=== PATIENT | female | born 1940 | race Caucasian/White ===

== ENCOUNTER 2016-08-12 13:20 | Observation (INO) ==
--- NOTE | 2016-08-12 13:22 | Emergency Department Note ---
Disposition Clinical Impression: Hypoglycemia, Weight loss Disposition: Admitted As Inpatient Referrals: NO,PCP [Primary Care Provider] - Forms: ED Satisfaction Letter General Adult HPI - General Chief complaint: ED Weakness Stated complaint: Low Blood Sugar Time Seen by Provider: 08/12/16 13:22 Source: patient, EMS Mode of arrival: EMS Limitations: altered mental status Nursing Notes Reviewed: Yes Vital Signs Reviewed: Yes - History of Present Illness HPI Narrative: Patient is a 75-year-old female who is a [facility] patient is here for hypoglycemia. They checked her earlier this morning it was in the 80s they gave her long-acting insulin 10 units subcutaneous they held her metformin they do not E because they stated she seemed a little disoriented. Patient's family states she has lost about 80 pounds in the last year and was concerned if she even needed medications for diabetes. History she has had multiple episodes of hypoglycemia Improves with: other (Glucose) Worsens with: nothing Associated symptoms: Reports: loss of appetite Treatments Prior to Arrival: other (Oral glucose) - Related Data Previous Rx's Medication Instructions Recorded Ondansetron ODT [Zofran ODT] 4 mg SL Q8HR PRN #15 tab.rapdis 06/30/16 OxyCODONE/APAP 5/325 [Percocet 1 each PO Q6HR PRN #15 tablet 06/30/16 5/325] Allergies Allergy/AdvReac Type Severity Reaction Status Date / Time Penicillins Allergy See Verified 10/29/15 15:27 Comments Sulfa (Sulfonamide Allergy See Verified 10/29/15 15:27 Antibiotics) Comments tetanus toxoid, adsorbed Allergy See Verified 08/12/16 13:23 Comments All systems ED: reviewed and negative except as stated. Constitutional: Reports: weakness. Denies: fever, chills Gastrointestinal: Denies: nausea, vomiting Past Medical History - Past Medical History Source: patient, old records reviewed, obtained from family, nursing notes reviewed Medical history: Reports: arthritis, diabetes, hypertension Surgical history: Reports: other Psychiatric history: Reports: no psych history - Social History Smoking Status: Former smoker Smokeless Tobacco Status: No Alcohol use: Reports: none Drug use: Reports: none Physical Exam - General Limitations: no limitations - Head Head exam: atraumatic, normocephalic, normal inspection - Eye Eye exam: Present: normal appearance, PERRL, EOMI - ENT ENT exam: normal exam, normal oropharynx, mucous membranes moist - Neck Neck exam: Present: normal inspection, full ROM, trachea midline - Chest Chest inspection: Present: normal inspection, symmetric chest wall rise - Respiratory Respiratory exam: Present: normal lung sounds bilaterally - Cardiovascular Cardiovascular exam: Present: regular rate, normal rhythm, normal heart sounds - Abdominal Exam Abdominal exam: Present: soft, Non-Tender. Absent: tenderness, distention, guarding, rebound, rigidity - Expanded Lower Extremity Exam Neurovascular/Tendon exam: Absent: motor deficit, sensory deficit, tendon deficit - Back Exam Back exam: Present: normal inspection, full ROM. Absent: tenderness - Neurological Exam Neurological exam: Present: alert, oriented X3 - Psychiatric Psychiatric exam: Present: normal affect, normal mood - Skin Skin exam: Present: warm, dry, intact, normal color Course Vital Signs Temperature 97.3 F L 08/12/16 13:23 Pulse Rate 61 08/12/16 13:23 Respiratory Rate 18 08/12/16 13:23 Blood Pressure 111/61 08/12/16 13:23 O2 Sat by Pulse Oximetry 94 08/12/16 13:23 Temperature 97.3 F L 08/12/16 13:23 Pulse Rate 60 08/12/16 14:47 Respiratory Rate 16 08/12/16 14:47 Blood Pressure 119/96 08/12/16 14:47 O2 Sat by Pulse Oximetry 96 08/12/16 14:47 Oxygen Delivery Oxygen Delivery Room Air Medical Decision Making - Medical Records Medical records reviewed: Yes I reviewed the patient's medical records. - Lab Data Lab results reviewed: Yes I reviewed the patient's lab results. Result diagrams: 08/12/16 13:46 08/12/16 13:46 Lab Results 08/12/16 08/12/16 08/12/16 Range/Units 13:25 13:46 13:46 WBC 13.1 H (4.3-11.1) K/mcL RBC 3.82 (3.82-4.97) M/mcL Hgb 9.3 L (11.5-15.4) g/dL Hct 29.8 L (35.3-44.9) % MCV 78.0 L (83.0-100.0) fL MCH 24.3 L (28.0-33.3) pg MCHC 31.2 L (31.6-35.5) g/dL RDW 19.2 H (11.5-14.5) % Plt Count 321 (140-400) K/mcL MPV 8.6 L (9.4-12.4) fL Immature Gran % 0.8 (0-4) % Seg Neutrophils % 82.0 % Lymphocytes % 11.6 % Monocytes % 4.2 % Eosinophils % 1.1 % Basophils % 0.3 % Neutrophils # 10.7 H (1.6-8.9) K/mcL Lymphocytes # 1.5 (0.6-4.6) K/mcL Monocytes # 0.6 (0.0-1.3) K/mcL Eosinophils # 0.2 (0.0-0.6) K/mcL Basophils # 0.0 (0.0-0.2) K/mcL Sodium 139 (136-145) mEq/L Potassium 3.8 (3.5-4.5) mEq/L Chloride 107 (98-109) mEq/L Carbon Dioxide 26 (19-29) mEq/L BUN 19 (7-20) mg/dL Creatinine 1.20 H (0.57-1.11) mg/dL Est GFR ( Amer) 53 L (> 60) Est GFR (Non-Af Amer) 44 L (> 60) BUN/Creatinine Ratio 16 (6-26) Glucose 64 L (70-99) mg/dL POC Glucose 84 (58-89) Est Mean Plasma Glucose mg/dl Hemoglobin A1c ( - 5.6) % Calculated Osmolality 288 (280-300) Calcium 7.7 L (8.6-10.8) mg/dL 08/12/16 08/12/16 08/12/16 Range/Units 13:46 14:22 14:23 WBC (4.3-11.1) K/mcL RBC (3.82-4.97) M/mcL Hgb (11.5-15.4) g/dL Hct (35.3-44.9) % MCV (83.0-100.0) fL MCH (28.0-33.3) pg MCHC (31.6-35.5) g/dL RDW (11.5-14.5) % Plt Count (140-400) K/mcL MPV (9.4-12.4) fL Immature Gran % (0-4) % Seg Neutrophils % % Lymphocytes % % Monocytes % % Eosinophils % % Basophils % % Neutrophils # (1.6-8.9) K/mcL Lymphocytes # (0.6-4.6) K/mcL Monocytes # (0.0-1.3) K/mcL Eosinophils # (0.0-0.6) K/mcL Basophils # (0.0-0.2) K/mcL Sodium (136-145) mEq/L Potassium (3.5-4.5) mEq/L Chloride (98-109) mEq/L Carbon Dioxide (19-29) mEq/L BUN (7-20) mg/dL Creatinine (0.57-1.11) mg/dL Est GFR ( Amer) (> 60) Est GFR (Non-Af Amer) (> 60) BUN/Creatinine Ratio (6-26) Glucose (70-99) mg/dL POC Glucose 46 L* 45 L* (58-89) Est Mean Plasma Glucose 94 mg/dl Hemoglobin A1c 4.9 ( - 5.6) % Calculated Osmolality (280-300) Calcium (8.6-10.8) mg/dL Critical Care Time Critical Care Time: Yes Total Critical Care Time: 40 Attestation: Critical care performed: Time is exclusive of separately billable procedures. Time includes: direct patient care, patient reassessment, coordination of patient care, interpretation of data (laboratory data, radiology data, and respiratory data), review of patient's medical records, medical consultation and documentation of patient care. Procedures included in critical care time: Procedures excluded from critical care time:
[2016-08-12 13:54] LABS: Basophils % 0.3 %; Eosinophils # 0.2 K/mcL (0.0-0.6); Eosinophils % 1.1 %; Hematocrit 29.8 % (35.3-44.9); Hemoglobin 9.3 g/dL (11.5-15.4); Immature Granulocytes % 0.8 % (0-4); Lymphocytes # 1.5 K/mcL (0.6-4.6); Lymphocytes % 11.6 %; Mean Corpuscular HGB Conc 31.2 g/dL (31.6-35.5); Mean Corpuscular Hemoglobin 24.3 pg (28.0-33.3); Mean Platelet Volume 8.6 fL (9.4-12.4); Monocytes # 0.6 K/mcL (0.0-1.3); Monocytes % 4.2 %; Neutrophils # 10.7 K/mcL (1.6-8.9); Platelet Count 321 K/mcL (140-400); Red Blood Count 3.82 M/mcL (3.82-4.97); Red Cell Distribution Width 19.2 % (11.5-14.5)
[2016-08-12 14:05] LABS: Calcium 7.7 mg/dL (8.6-10.8); Hemoglobin A1C 4.9 %; Potassium 3.8 mEq/L (3.5-4.5)
[2016-08-12] MEDS ORDERED: *HR* Dextrose 50 % in Water (Syg) 50 ML SYRINGE IVP ONE (14:33)
[2016-08-12] MEDS: D10% in Water 500 ML IVC SCH ×2 (14:38→20:03)
--- NOTE | 2016-08-12 15:40 | Internal Med History&Physical ---
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 Reis is a 75 year old female [facility] due to hypoglycemia blood sugar about 46 patient patient with history of diabetes, hypertension, arthritis,, pacemaker nonhealing surgical wound patient this morning at [place] blood glucose was 80, she was given long-acting 10 units of Lantus and metformin was held patient later on became drowsy and then she was brought to the emergency room due to to hypoglycemic was given amp of D50 by EMS and then D50 again in emergency room lab draw shows glucose of 49 now she started on the D10 half-normal saline at 100 an hour when I saw patient patient still appears drowsy, but easily wakes up she refuses to eat patient says she is not hungry does not want to eat and had tray in emergency room which she has not touched . nurse now repeats repeat Accu-Chek which was 161. Patient will be admitted . family reported that patient has lost about 80 pounds and has multiple episodes of hypoglycemia in the jail hemoglobin A1c is 4.9 appearance patient is no longer diabetic and family also concerned the patient had very poor by mouth intake does not eat well and does not want to eat and continuously losing weight. Past Med Surg Social Fam HX - Past Medical History Medical history: arthritis, diabetes, hypertension Psychiatric history: no psych history - Past Surgical History Surgical History: pacemaker/AICD, other - Social History Smoking Status: Former smoker Smokeless Tobacco Status: No Alcohol use: none Drug use: none - Family History Father Adopted: No Family Member Ethnicity: Non- Living Status: Hx Family Cardiac Disorders: Yes Hx Family Respiratory Disorders: No Hx Family Cancer: No Hx Family GI Disorders: No Hx Family Endocrine Disorder: Yes Hx Family Neuromuscular Disorders: No Hx Family Neurologic Disorders: No Hx Family HEENT Disorders: No Hx Family Autoimmune Disorders: No Internal Medicine - H&P: Meds Ondansetron ODT [Zofran ODT] 4 mg SL Q8HR PRN #15 tab.rapdis 06/30/16 [Rx] OxyCODONE/APAP 5/325 [Percocet 5/325] 1 each PO Q6HR PRN #15 tablet 06/30/16 [Rx ] Allergies Penicillins Allergy (Verified 10/29/15 15:27) See Comments Sulfa (Sulfonamide Antibiotics) Allergy (Verified 10/29/15 15:27) See Comments tetanus toxoid, adsorbed Allergy (Verified 08/12/16 13:23) See Comments All Systems PM: A 10-system review of systems was performed and is negative for pertinent findings except as documented above in the HPI. - Constitutional Constitutional: fatigue, lethargy - EENT Eyes: no change in vision, no discharge, no pain, no photophobia Ears: no ear discharge, no ear pain, no tinnitus Nose, mouth and throat: no dysphagia, no nasal discharge, no neck pain, no sore throat - Cardiovascular Cardiovascular ROS IM: no chest pain, no diaphoresis, no dyspnea, no lightheadedness, no palpitations, no syncope - Respiratory Respiratory: no cough, no dyspnea, no wheezing, no excessive phlegm production - Gastrointestinal Gastrointestinal: no abdominal pain, no diarrhea, no hematemesis, no hematochezia, no melena, no nausea, no vomiting - Genitourinary Genitourinary: no change in urinary stream, no dysuria, no flank pain, no hematuria - Musculoskeletal Musculoskeletal ROS IM: no numbness, no tingling - Integumentary Integumentary IM: no rash, no unusual bruising - Neurological Neurological ROS: no confusion, no convulsions, no focal weakness, no numbness, no tingling, no tremor(s) - Hematologic/Lymphatic Hematologic/Lymphatic: no easy bruising - Constitutional Vitals: Temp Pulse Resp BP Pulse Ox 97.3 F L 60 20 105/46 96 04/29/17 13:23 08/12/16 14:47 08/12/16 15:27 08/12/16 15:27 08/12/16 14:47 - Eye Eye exam: Present: PERRL, conjuntiva pink, sclera anicteric Pupils: Present: PERRL - Neck Neck exam general surgery: Present: supple, trachea midline. Absent: lymphadenopathy - Respiratory Respiratory exam: Present: CTAB. Absent: accessory muscle use, rales, rhonchi, wheezes - Cardiovascular Cardiovascular exam: Present: RRR, +S1, +S2. Absent: diastolic murmur, gallop, rubs, systolic murmur - GI/Abdominal GI/Abdominal exam: Present: normal bowel sounds, soft, no peritoneal signs. Absent: distended, tenderness - Extremities Exam Extremities exam: Present: warm, radial pulses palpable and symetrical. Absent : calf tenderness, cyanotic, pedal edema Internal Med - H&P Results - Labs CBC & Chem 7: 08/12/16 13:46 08/12/16 13:46 Labs: Short CBC 08/12/16 Range/Units 13:46 WBC 13.1 H (4.3-11.1) K/mcL Hgb 9.3 L (11.5-15.4) g/dL Hct 29.8 L (35.3-44.9) % Plt Count 321 (140-400) K/mcL Neutrophils # 10.7 H (1.6-8.9) K/mcL BMP 08/12/16 13:46 Sodium 139 Potassium 3.8 Chloride 107 Carbon Dioxide 26 BUN 19 Creatinine 1.20 H Glucose 64 L Calcium 7.7 L
[2016-08-12] MEDS ORDERED: MOM Conc 10 ML UD.LIQ PO PRN (15:47)
[2016-08-12] MEDS ORDERED: Ondansetron 4 MG/2 ML VIAL IVP PRN (15:47)
[2016-08-12] MEDS ORDERED: Naloxone 0.4 MG/ML INJ IVP PRN (15:47)
[2016-08-12] MEDS ORDERED: *HR* OxyCODONE/APAP 5/325 TABLET PO PRN (15:51)
[2016-08-12] MEDS ORDERED: *HR* Dextrose 50 % in Water (Syg) 50 ML SYRINGE IVP PRN (15:52)
[2016-08-12] MEDS ORDERED: Dextrose Gel 15 GM PO PRN ×2 (15:52)
[2016-08-12] MEDS ORDERED: D5% in Water 1,000 ML IVC PRN (15:52)
[2016-08-12] MEDS ORDERED: 0.9 % Sodium Chloride 500 ML IVC ONE (22:26)
[2016-08-12] MEDS: BuPROPion SR (12 HR) 150 MG TABLET PO SCH (22:53)
[2016-08-13] MEDS: Fluticasone Propionate Nasal 50 MCG/SPRAY BOTTLE NS SCH ×2 (01:21→08:14)
[2016-08-13] MEDS: D10% in Water 500 ML IVC SCH ×3 (02:24→14:39)
[2016-08-13 03:38] LABS: Alanine Aminotransferase 8 Units/L (0-55); Albumin/Globulin Ratio 0.5 (1.1-2.2); Alkaline Phosphatase 140 Units/L (38-126); Aspartate Amino Transferase 14 Units/L (5-34); BUN/Creatinine Ratio 15 (6-26); Bilirubin,Total 0.4 mg/dL (0.2-1.2); Blood Urea Nitrogen 15 mg/dL (7-20); Calcium 7.5 mg/dL (8.6-10.8); Carbon Dioxide 21 mEq/L (19-29); Chloride 107 mEq/L (98-109); Chol/HDL Ratio 1.8 (0-4.9); Globulin 3.3 g/dL (2.4-3.5); Glucose 105 mg/dL (70-99); HDL Cholesterol 42 mg/dL (40-59); LDL Cholesterol,Calculated 19 mg/dL (0-99); Magnesium 1.2 mg/dL (1.6-2.6); Osmolality,Calculated 283 (280-300); Potassium 3.5 mEq/L (3.5-4.5); Sodium 136 mEq/L (136-145); Triglycerides 78 mg/dL (< 150); eGFR For African Americans > 60 (> 60); eGFR For Non-African Americans 53 (> 60)
[2016-08-13 03:40] LABS: Albumin 1.7 g/dL (3.5-5.0); Cholesterol 77 mg/dL (< 200)
[2016-08-13] MEDS: Levothyroxine 25 MCG TABLET PO SCH (06:44)
[2016-08-13] MEDS: BuPROPion SR (12 HR) 150 MG TABLET PO SCH ×2 (08:13→19:55)
[2016-08-13] MEDS: Aspirin Enteric Coated 81 MG Tablet PO SCH (08:13)
[2016-08-13] MEDS: Cholecalciferol (D-3) 1,000 UNIT TABLET PO SCH (08:14)
[2016-08-13] MEDS: Gabapentin 300 MG CAPSULE PO SCH ×3 (08:14→19:54)
[2016-08-13] MEDS: Loratadine 10 MG TABLET PO SCH (08:14)
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
[2016-08-13] MEDS ORDERED: Magnesium Sulfate 2 GM in D5% in Water 100 ML IVPB ONE (18:20)
[2016-08-13] MEDS ORDERED: traZODone 50 MG TABLET PO SCH (21:00)
[2016-08-14] MEDS: Levothyroxine 25 MCG TABLET PO SCH (06:39)
[2016-08-14] MEDS: BuPROPion SR (12 HR) 150 MG TABLET PO SCH (08:17)
[2016-08-14] MEDS: Gabapentin 300 MG CAPSULE PO SCH ×2 (08:17→15:17)
[2016-08-14] MEDS: Cholecalciferol (D-3) 1,000 UNIT TABLET PO SCH (08:18)
[2016-08-14] MEDS: Loratadine 10 MG TABLET PO SCH (08:18)
[2016-08-14] MEDS: Aspirin Enteric Coated 81 MG Tablet PO SCH (08:18)
[2016-08-14] MEDS: Fluticasone Propionate Nasal 50 MCG/SPRAY BOTTLE NS SCH (08:21)
[2016-08-14 09:24] LABS: Basophils % 0.3 %; Eosinophils # 0.2 K/mcL (0.0-0.6); Eosinophils % 2.2 %; Hematocrit 31.8 % (35.3-44.9); Hemoglobin 10.1 g/dL (11.5-15.4); Immature Granulocytes % 0.3 % (0-4); Lymphocytes # 1.6 K/mcL (0.6-4.6); Lymphocytes % 17.2 %; Mean Corpuscular HGB Conc 31.8 g/dL (31.6-35.5); Mean Corpuscular Hemoglobin 24.5 pg (28.0-33.3); Mean Platelet Volume 9.5 fL (9.4-12.4); Monocytes # 0.5 K/mcL (0.0-1.3); Monocytes % 5.8 %; Neutrophils # 6.8 K/mcL (1.6-8.9); Platelet Count 321 K/mcL (140-400); Red Blood Count 4.13 M/mcL (3.82-4.97); Red Cell Distribution Width 19.3 % (11.5-14.5); Segmented Neutrophils % 74.2 %
[2016-08-14 09:39] LABS: BUN/Creatinine Ratio 12 (6-26); Blood Urea Nitrogen 10 mg/dL (7-20); Calcium 7.7 mg/dL (8.6-10.8); Carbon Dioxide 23 mEq/L (19-29); Chloride 109 mEq/L (98-109); Glucose 115 mg/dL (70-99); Magnesium 1.2 mg/dL (1.6-2.6); Osmolality,Calculated 286 (280-300); Potassium 3.9 mEq/L (3.5-4.5); Sodium 138 mEq/L (136-145); eGFR For African Americans > 60 (> 60); eGFR For Non-African Americans > 60 (> 60)
[2016-08-14] MEDS ORDERED: Magnesium Sulfate 2 GM in D5% in Water 100 ML IVPB ONE (12:36)
[2016-08-14 15:10] VITALS: BP 155/73
--- NOTE | 2016-08-14 15:35 | Discharge Summary ---
Date of Encounter: 08/14/16 Time of Encounter: 09:10 - Discharge Diagnosis (1) Nonhealing surgical wound Priority: Secondary Status: Chronic Comments: Patient had abdominal surgery at [facility] earlier this year, per her account. She said that she had a large abdominal wound that involved wound care and wound VAC. Currently she has a small draining area inside of her umbilicus. Yesterday was draining serosanguineous/brown drainage. Today it appears to be draining nothing. Primary nurse also agrees. She denies pain, there is no foul odor. Onset of this about 2 weeks ago. I did consult wound care, however they did not make it to the department today. She also has some partially healed abrasions to the dorsal right second and third toes she says for some reason she was crawling on the floor to get help and dragged her toes across the carpet. I believe this happened at her home. She says that she is not limited home for a few months, so these are slow healing wounds. I would appreciate wound care seeing these at the facility to facilitate healing. They appear to cause her a lot of pain in her tender to palpation. They are covered with gauze only and do not look like they have a drainage. Qualifiers: Encounter type: initial encounter Qualified Code(s): T81.89XA - Other complications of procedures, not elsewhere classified, initial encounter (2) Hypoglycemia Priority: Primary Status: Acute Comments: Patient was admitted for hypoglycemia from the emergency room. She is a resident at a local [facility]. She has been residing there this year since it was discovered that she was unable to be at home due to falls, declining condition, and abdominal surgery. Blood sugar the day of arrival was in the 80s, however they give her long-acting insulin and hold her metformin and she did not eat. She was sent to the emergency department where blood sugars in the 40s. She was treated appropriately with amps of D50. She was on a D5 drip here. We did end up stopping it. Her A1c is 4.9. Her Accu-Cheks have been around 120. She will no longer need any diabetic medications. She does report approximately 80 pound weight loss recently this could be contributory. She will need to be monitored closely at the [facility] and still primarily adherent to a diabetic diet. (3) Weight loss Priority: Secondary Status: Chronic Comments: Patient reports proximal 80 pound weight loss since moving into the penitentiary. Patient states it is partially due to deconditioning, lack of mobility, depression from missing her family and not being at home. Nutrition was consult for supplementation. Patient will also have continued physical therapy at the penitentiary. (4) Arthritis Priority: Secondary Status: Chronic (5) Artificial pacemaker Priority: Secondary Status: Chronic (6) Physical deconditioning Priority: Secondary Status: Acute Comments: Patient has been a resident of penitentiary. She was sent for rehabilitation, she will go back to continue physical therapy. Patient had lengthy abdominal surgery and was having increasing falls at home. Per therapy notes, patient was difficult to move today and required assistance. Continue therapy at penitentiary. - Discharge Medications Home Medications: Amlodipine [Norvasc] 10 mg PO DAILY 08/12/16 [History] Ascorbate Calcium [Vitamin C] 500 mg PO BID 08/12/16 [History] Aspirin [Lo-Dose Aspirin EC] 81 mg PO DAILY 08/12/16 [History] Atorvastatin [Lipitor] 40 mg PO HS 08/12/16 [History] BuPROPion SR (12 HR) [Wellbutrin SR] 150 mg PO BID 08/12/16 [History] Calcium Carbonate [Calcium] 600 mg PO BID 08/12/16 [History] Cholecalciferol (Vitamin D3) [Vitamin D3] 2,000 unit PO DAILY 08/12/16 [History] Cilostazol 50 mg PO BID 08/12/16 [History] CloNIDine HCl [Kapvay] 0.1 mg PO BID 08/12/16 [History] DiphenhydraMINE [Benadryl] 25 mg PO BID PRN 08/12/16 [History] Docusate [Colace] 100 mg PO BID 08/12/16 [History] Escitalopram [Lexapro] 10 mg PO HS 08/12/16 [History] Estrogens, Conjugated [Premarin Cream] 1 appl VG MOWEFR 08/12/16 [History] Fexofenadine HCl [Allergy Relief] 180 mg PO DAILY 08/12/16 [History] Gabapentin [Neurontin] 300 mg PO TID 08/12/16 [History] Levothyroxine [Synthroid] 25 mcg PO DAILY 08/12/16 [History] Magnesium Hydroxide [Milk of Magnesia] 30 ml PO DAILY PRN 08/12/16 [History] Melatonin/Pyridoxine HCl (B6) [Melatonin 3 mg Tablet] 3 mg PO HS 08/12/16 [ History] Metoprolol [Lopressor] 25 mg PO BID 08/12/16 [History] Oxybutynin Chloride [Ditropan Xl] 10 mg PO DAILY 08/12/16 [History] Oxycodone HCl/Acetaminophen [Percocet 5-325 mg Tablet] 1 - 2 tab PO Q4H PRN [History] Pentoxifylline [TRENtal] 400 mg PO BID 08/12/16 [History] Polyethylene Glycol 3350 [Gavilax] 17 gm PO DAILY 08/12/16 [History] Polyvinyl Alcohol/Povidone/Pf [Refresh Classic Eye Drops] 1 drop OP DAILY [History] Ranitidine HCl [Acid Gi Physician] 75 mg PO BID 08/12/16 [History] Sennosides [Senna] 8.6 mg PO BID 08/12/16 [History] TraZODone 50 mg PO HS 08/12/16 [History] Zinc Acetate [Galzin] 50 mg PO DAILY 08/12/16 [History] Allergies/Adverse Reactions: Allergies Penicillins Allergy (Unknown, Verified 08/12/16 17:01) See Comments Unknown reaction- Listed on ECF med list- Sulfa (Sulfonamide Antibiotics) Allergy (Unknown, Verified 08/12/16 17:01) See Comments Unknown reaction- Listed on ECF med list- tetanus toxoid, adsorbed Allergy (Unknown, Verified 08/12/16 17:01) See Comments Unknown reaction- Listed on ECF med list- Date of admission: 08/12/16 15:15 Primary care physician: PCP NO Consults: 08/12/16 15:50 Consult to Blankbook Forwarder [CONS] Routine Reason for SW Consult: [place] resident 08/12/16 15:53 consult to lining repairer [Consult to Nutrition] [CONS] Routine Comment: Consulting Provider: NUTRITION Reason for Dietary Consult: PO Supplementation 08/13/16 18:05 Consult to Wound Care [CONS] Routine Reason for Consult: Prior pt of wound care. Small draining wound in umbilicus. Pt states that this is part of original wound that she was treated for. Wounds to R dorsal 2nd and 3rd toes. Potential skin breakdown to citlali heels. Call Completed: No 08/14/16 08:43 Consult to Physical Therapy [CONS] Routine Comment: Evaluate, develop and implement POC OT [Consult to Occupational Therapy] [CONS] Routine Comment: Evaluate, develop and implement POC Discharging clinician: Omayra Painter Anticipated date of discharge: 08/14/16 - Patient Status Disposition: Transfer SNF Condition: Good Functional capacity at discharge: uses cane/walker Overall status at discharge: patient is back to baseline - Discharge Instructions Follow Up With: NO,PCP [Primary Care Provider] - Additional Instructions: Pt does not need insulin or Metformin at this time. Accuchecks ac and hs She will need careful, close monitoring of blood sugars for hyper or hypoglycemia. A1c is 4.9 and her accuchecks have been around 120mg/dl Please have her seen by the facility physician within the next 3 days for lab redraw for Chem7 with Magnesium. Pt did have some serosanguinous, non-purulent drainage from her umbilicus. She says she has had it for 2-3 weeks. She also has scabs to her dorsal toes citlali, R > L that are painful. I would appreciate an evalution by wound care, if it has not been done already. - Diet and Activity Activity: as per physical therapy Diet: diabetic diet, low fat, low cholesterol, low salt diet Hospital course: Ms. Reis is a 75 year old female who resides at a local pen[facility]. She is at the half-way facility for rehabilitation due to abdominal surgery in April with wound complications, and increasing falls at home. She was sent to the emergency department for hypoglycemia, her blood sugar was about 46. She has a history of diabetes, hypertension, arthritis, she has a pacemaker, and a nonhealing surgical wound to umbilicus. At the [facility] her blood sugar was around 80, she was given long-acting Lantus and metformin was held. Later on patient became drowsy she is brought to the emergency room. Blood sugar in the 40s. She was given an amp of D50 by EMS and then another one again in the emergency room. Second lab draw shows glucose of 49. She was started on a drip of D10 half-normal saline at 100 hour. She was admitted to the floor. The D10 was stopped yesterday. Her A1c is 4.9 and her Accu-Cheks have been around 120. I have stopped all of her insulin and diabetic medications. She will be sent back to the penitentiary with orders for close monitoring of blood sugars and a repeat chemistry within the next 3 days to monitor her electrolytes and magnesium. Magnesium was 1.7 today. She was given 2 g of mag sulfate prior to discharge. Potassium remains within normal limits. I counseled wound care look at her abdominal wound, however they did not make it to the unit prior to discharge. I will request that she is seen by wound care at the penitentiary for a small open area in her umbilicus that is draining serosanguineous fluid. It appears to stopped, however it still needs to be evaluated and monitored. She denies pain. The drainage is not foul- smelling or purulent. Her labs are within normal limits, as are her vital signs. Patient is alert and oriented and neurologically intact, she is very pleasant woman who is stable for discharge. - Time Spent with Patient Total time spent providing and/or coordinating discharge services: Less than 30 minutes - Constitutional Vitals: Temp Pulse Resp BP Pulse Ox 98.6 F 84 16 155/73 97 08/14/16 15:03 08/14/16 15:03 08/14/16 15:03 08/14/16 15:03 08/14/16 15:03 General appearance: Present: A&O X 3, morbidly obese, pleasant, no acute distress, answers questions appropriately - Head Head exam: Present: normal inspection - Eye Eye exam: Present: normal appearance, conjuntiva pink - ENT ENT exam: Present: mucous membranes moist, normal exam, normal external ear exam - Neck Neck exam general surgery: Present: normal inspection. Absent: lymphadenopathy , tenderness - Respiratory Respiratory exam: Present: CTAB. Absent: rales, rhonchi, wheezes - Cardiovascular Cardiovascular exam: Present: RRR, +S1, +S2. Absent: diastolic murmur, systolic murmur - GI/Abdominal GI/Abdominal exam: Present: normal bowel sounds. Absent: guarding, hepatomegaly , tenderness - Extremities Exam Extremities exam: Present: normal capillary refill, normal inspection, warm, radial pulses palpable and symetrical. Absent: pedal edema, tenderness - Neurological Exam Neurological exam: Present: alert, oriented X3, no focal deficits, strengths equal and symetr throughout. Absent: facial droop, speech deficit
--- NOTE | 2016-08-14 16:00 | Physician Discharge Referral ---
ExtendedCare Referral Info Transfer To: [facility] Provider in Charge after Transfer: PCP Institutional Level of Care: Skilled - Diagnosis (1) Nonhealing surgical wound Priority: Secondary Status: Chronic (2) Hypoglycemia Priority: Primary Status: Acute (3) Weight loss Priority: Secondary Status: Chronic (4) Arthritis Priority: Secondary Status: Chronic (5) Artificial pacemaker Priority: Secondary Status: Chronic (6) Physical deconditioning Priority: Secondary Status: Chronic Expected Duration of Placement: 90 days Prognosis: Good - Transfer Medications Home Medications: Amlodipine [Norvasc] 10 mg PO DAILY 08/12/16 [History] Ascorbate Calcium [Vitamin C] 500 mg PO BID 08/12/16 [History] Aspirin [Lo-Dose Aspirin EC] 81 mg PO DAILY 08/12/16 [History] Atorvastatin [Lipitor] 40 mg PO HS 08/12/16 [History] BuPROPion SR (12 HR) [Wellbutrin SR] 150 mg PO BID 08/12/16 [History] Calcium Carbonate [Calcium] 600 mg PO BID 08/12/16 [History] Cholecalciferol (Vitamin D3) [Vitamin D3] 2,000 unit PO DAILY 08/12/16 [History] Cilostazol 50 mg PO BID 08/12/16 [History] CloNIDine HCl [Kapvay] 0.1 mg PO BID 08/12/16 [History] DiphenhydraMINE [Benadryl] 25 mg PO BID PRN 08/12/16 [History] Docusate [Colace] 100 mg PO BID 08/12/16 [History] Escitalopram [Lexapro] 10 mg PO HS 08/12/16 [History] Estrogens, Conjugated [Premarin Cream] 1 appl VG MOWEFR 08/12/16 [History] Fexofenadine HCl [Allergy Relief] 180 mg PO DAILY 08/12/16 [History] Gabapentin [Neurontin] 300 mg PO TID 08/12/16 [History] Levothyroxine [Synthroid] 25 mcg PO DAILY 08/12/16 [History] Magnesium Hydroxide [Milk of Magnesia] 30 ml PO DAILY PRN 08/12/16 [History] Melatonin/Pyridoxine HCl (B6) [Melatonin 3 mg Tablet] 3 mg PO HS 08/12/16 [ History] Metoprolol [Lopressor] 25 mg PO BID 08/12/16 [History] Oxybutynin Chloride [Ditropan Xl] 10 mg PO DAILY 08/12/16 [History] Oxycodone HCl/Acetaminophen [Percocet 5-325 mg Tablet] 1 - 2 tab PO Q4H PRN [History] Pentoxifylline [TRENtal] 400 mg PO BID 08/12/16 [History] Polyethylene Glycol 3350 [Gavilax] 17 gm PO DAILY 08/12/16 [History] Polyvinyl Alcohol/Povidone/Pf [Refresh Classic Eye Drops] 1 drop OP DAILY [History] Ranitidine HCl [Acid Locomotive Inspector] 75 mg PO BID 08/12/16 [History] Sennosides [Senna] 8.6 mg PO BID 08/12/16 [History] TraZODone 50 mg PO HS 08/12/16 [History] Zinc Acetate [Galzin] 50 mg PO DAILY 08/12/16 [History] Allergies/Adverse Reactions: Allergies Penicillins Allergy (Unknown, Verified 08/12/16 17:01) See Comments Unknown reaction- Listed on ECF med list- Sulfa (Sulfonamide Antibiotics) Allergy (Unknown, Verified 08/12/16 17:01) See Comments Unknown reaction- Listed on ECF med list- tetanus toxoid, adsorbed Allergy (Unknown, Verified 08/12/16 17:01) See Comments Unknown reaction- Listed on ECF med list- - Respiratory Orders Smoking Cessation: Smoking cessation has been advised. For more information, call the [place] Tobacco Quit Line at 6-366-VKJC-NOW. - Lab Orders Lab Orders: Other (include drug levels w/frequency) - Ancillary Orders May use pressure relief devices daily prn - Advance Directives Code Status: Full Code - Mobility Orders Other - Rehabiliation Orders Rehab Potential: Fair Rehab Orders: ROM Exercises, Evaluation for Physical Therapy, Evaluation for Occupational Therapy - Diet Orders No Added Salt (SAMIRA), No Concentrated Sweets (Pt will need close monitoring of blood glucose. Accuchecks ac/hs. Wound care evaluation for umbilicus and citlali dorsal toes, if not done already Pt will need a repeat Chem7 and magnesium to reevaluate electrolytes) CERTIFICATION: I certify that the transfer of the above named patient to an Extended Care Facility is necessary for the continuing treatment of the diagnosis listed. The above information is true and accurate reflection of patient's current condition. Confidential - Redisclosure prohibited without a patient's written consent.
[2016-08-14] MEDS ORDERED: Magnesium Oxide 400 MG TABLET PO SCH (16:30)
[2016-08-15] MEDS ORDERED: Multivit/Ca/Min/Fe/FA 1 TAB TABLET PO SCH (09:00)
== END 2016-08-14 17:15 ==
LOC: 3BNU 13:20 → EMEROO 13:20 → 3BNU 15:58
PROVIDERS: ADMIT Internal Medicine; ATTEND Registered Nurse

== ENCOUNTER 2016-09-18 02:13 | Inpatient (IN) ==
--- NOTE | 2016-09-18 02:22 | Emergency Department Note ---
START Narrative - START START: I examined this patient and my medical decision-making was reviewed with the MEDICAL TYPIST/PA/Advanced Practice Nurse/Resident Physician. I agree with the documented findings, disposition and treatment plan as described except to the extent set forth below. Patient emergency department with altered mental status. half-way center and: Reports for concern for stroke. They were concerned because she was leaning to the right. Patient denies any numbness or tingling or pain. On examination she is awake and alert. Laying on her right side. Patient yells when you try to move her. She does follow simple commands. She raises both arms. There is no drift. She able to move both legs as well. Sensation is intact and symmetric. She answers questions appropriately such as her name and birthday. Her NIH scale here is 0. Plan. Do not see any signs of an acute stroke. Patient states she is laying to the right because she likes to lay that way. We will perform altered mental status workup and reevaluate. Patient with elevated troponin. No old for comparison. Reevaluated and again denies having chest abdominal or back pain. Patient with UTI. Starting antibiotics. Potassium rider for hypokalemia. Will admit.
[2016-09-18 03:19] LABS: Basophils % 0.1 %; Eosinophils % 0.1 %; Hematocrit 37.2 % (35.3-44.9); Hemoglobin 11.6 g/dL (11.5-15.4); Immature Granulocytes % 0.4 % (0-4); Lymphocytes # 1.6 K/mcL (0.6-4.6); Lymphocytes % 13.3 %; Mean Corpuscular HGB Conc 31.2 g/dL (31.6-35.5); Mean Corpuscular Hemoglobin 24.2 pg (28.0-33.3); Mean Corpuscular Volume 77.7 fL (83.0-100.0); Monocytes # 0.7 K/mcL (0.0-1.3); Monocytes % 5.5 %; Neutrophils # 9.6 K/mcL (1.6-8.9); Platelet Count 382 K/mcL (140-400); Red Blood Count 4.79 M/mcL (3.82-4.97); Red Cell Distribution Width 20.6 % (11.5-14.5); Segmented Neutrophils % 80.6 %
[2016-09-18 03:26] LABS: INR 1.3; Prothrombin Time 14.4 Seconds (9.4-12.1)
--- NOTE | 2016-09-18 03:26 | Emergency Department Note ---
Disposition Clinical Impression: Elevated troponin UTI (urinary tract infection) Qualifiers: Urinary tract infection type: site unspecified Hematuria presence: with hematuria Qualified Code(s): N39.0 - Urinary tract infection, site not specified Disposition: Admitted As Inpatient Condition: Fair Time of Disposition: 05:41 General Adult HPI - General Chief complaint: ED Neuro Symptoms/Deficit Stated complaint: possible stroke per [facility] Time Seen by Provider: 09/18/16 02:18 Nursing Notes Reviewed: Yes Vital Signs Reviewed: Yes - History of Present Illness HPI Narrative: Mrs. Reis, a 78 yo female, arrived from nursing facility via EMS with facility staff concern regarding altered mentation and concern for neurologic deficit. Patient denies pain at this time. She asks to be left alone. When asked where she hurts, patient motions to left leg and toes. PMH: arthritis, hx hypoglycemia, hx protein calorie maltrution, CAD with pacemaker ROS: Pos: Left leg and toe pain Neg: fever, chills, dyspnea, chest pain, abdominal pain, back pain, pain with urination - Related Data Home Medications Medication Instructions Recorded Confirmed Ascorbate Calcium [Vitamin C] 500 mg PO BID 08/12/16 08/12/16 Aspirin [Lo-Dose Aspirin EC] 81 mg PO DAILY 08/12/16 08/12/16 Atorvastatin [Lipitor] 40 mg PO HS 08/12/16 08/12/16 BuPROPion SR (12 HR) [Wellbutrin 150 mg PO BID 08/12/16 08/12/16 SR] Calcium Carbonate [Calcium] 600 mg PO BID 08/12/16 08/12/16 Cholecalciferol (Vitamin D3) 2,000 unit PO DAILY 08/12/16 08/12/16 [Vitamin D3] Cilostazol 50 mg PO BID 08/12/16 08/12/16 CloNIDine HCl [Kapvay] 0.1 mg PO BID 08/12/16 08/12/16 DiphenhydraMINE [Benadryl] 25 mg PO BID PRN 08/12/16 08/12/16 Docusate [Colace] 100 mg PO BID 08/12/16 08/12/16 Escitalopram [Lexapro] 10 mg PO HS 08/12/16 08/12/16 Estrogens, Conjugated [Premarin 1 appl VG MOWEFR 08/12/16 08/12/16 Cream] Fexofenadine HCl [Allergy Relief] 180 mg PO DAILY 08/12/16 08/12/16 Gabapentin [Neurontin] 300 mg PO TID 08/12/16 08/12/16 Levothyroxine [Synthroid] 25 mcg PO DAILY 08/12/16 08/12/16 Magnesium Hydroxide [Milk of 30 ml PO DAILY PRN 08/12/16 08/12/16 Magnesia] Melatonin/Pyridoxine HCl (B6) 3 mg PO HS 08/12/16 08/12/16 [Melatonin 3 mg Tablet] Metoprolol [Lopressor] 25 mg PO BID 08/12/16 08/12/16 Oxybutynin Chloride [Ditropan Xl] 10 mg PO DAILY 08/12/16 08/12/16 Oxycodone HCl/Acetaminophen 1 - 2 tab PO Q4H PRN 08/12/16 08/12/16 [Percocet 5-325 mg Tablet] Pentoxifylline [TRENtal] 400 mg PO BID 08/12/16 08/12/16 Polyethylene Glycol 3350 [Gavilax] 17 gm PO DAILY 08/12/16 08/12/16 Polyvinyl Alcohol/Povidone/Pf 1 drop OP DAILY 08/12/16 08/12/16 [Refresh Classic Eye Drops] Ranitidine HCl [Acid Public Health Assistant] 75 mg PO BID 08/12/16 08/12/16 Sennosides [Senna] 8.6 mg PO BID 08/12/16 08/12/16 Zinc Acetate [Galzin] 50 mg PO DAILY 08/12/16 08/12/16 amLODIPine [Norvasc] 10 mg PO DAILY 08/12/16 08/12/16 traZODone [TraZODone] 50 mg PO HS 08/12/16 08/12/16 Previous Rx's Medication Instructions Recorded Magnesium Oxide [Mag-Ox] 400 mg PO BID #6 tablet 08/14/16 Multivitamin,Therapeutic 1 each PO DAILY #30 tablet 08/14/16 [Thera-Tabs] Allergies Allergy/AdvReac Type Severity Reaction Status Date / Time Penicillins Allergy Unknown See Verified 09/18/16 02:36 Comments Sulfa (Sulfonamide Allergy Unknown See Verified 09/18/16 02:36 Antibiotics) Comments tetanus toxoid, adsorbed Allergy Unknown See Verified 09/18/16 02:36 Comments All systems ED: reviewed and negative except as stated. Past Medical History - Past Medical History Medical history: Reports: arthritis, diabetes, hypertension Surgical history: Reports: pacemaker/AICD, other Psychiatric history: Reports: no psych history CARD CUTTER history: Reports: non-contributory - Social History Smoking Status: Former smoker Smokeless Tobacco Status: No Alcohol use: Reports: none Drug use: Reports: none Physical Exam Vital Signs Reviewed General: Patient is alert and in no acute distress. HEENT: No facial asymmetry. Head is normocephalic and atraumatic. PERRLA. Oral mucosa moist. Trachea midline. Cardiovascular: Heart regular rate and rhythm without clicks, rubs, gallops, or murmurs. No JVD. PMI nondisplaced. No pedal edema. Bilateral posterior tibial and her cells pedis pulses palpable. Respiratory: Symmetric chest rise with good respiratory effort. Bilateral breath sounds are clear without wheezing, crackles, or rhonchi. Abdomen: Bowel sounds present normoactive x-4 quadrants. Abdomen is soft, nondistended, and nontender. Neuro: GCS 15. NIHSS 0. Skin: eschar on patient's right lateral leg and dorsum of two toes. no surrounding cellulitis or pustulance. Psych: Patient's affect is appropriate for situation. Course Course Narrative: Patient is laying on her right side because she feels more comfortable in that position. Patient did attempt to hit EMS and was mildly agitated with nursing staff; she requested that she be left alone to sleep. Patient has no neurologic deficits on physical exam. Baseline mentation is unknown but she does not appear to be confused. Chest x-ray and EKG unremarkable. Lab work is returning with elevated troponin of 0.25 as well as suspicion for UTI. Head CT 09/18/16 02:18 IMPRESSION: No acute intracranial abnormality. No significant change compared to prior study. D/ / Johny Byrne MD / Johny Byrne MD Interpreting Provider: Johny Byrne MD Chest X-Ray 09/18/16 02:19 IMPRESSION: Stable mild cardiomegaly, without acute airspace consolidation or CHF. D/ / Hardeep Griffiths MD / Hardeep Griffiths MD Interpreting Provider: Hardeep Griffiths MD Patient remains comfortably asleep. Her BP is creeping up; now 160's/105; will give labetolol. Spoke with the admitting hospitalist, Dr. Roman, who agrees to accept the patient. Vital Signs Temperature 98.2 F 09/18/16 02:15 Pulse Rate 93 09/18/16 02:15 Respiratory Rate 20 09/18/16 02:15 Blood Pressure 166/105 09/18/16 02:15 O2 Sat by Pulse Oximetry 99 09/18/16 02:15 Temperature 98.2 F 09/18/16 02:15 Pulse Rate 93 09/18/16 05:00 Respiratory Rate 20 09/18/16 05:00 Blood Pressure 141/82 09/18/16 05:00 O2 Sat by Pulse Oximetry 98 09/18/16 05:00 Oxygen Delivery Oxygen Delivery Room Air Medical Decision Making - Medical Records Medical records reviewed: Yes I reviewed the patient's medical records. - Lab Data Lab results reviewed: Yes I reviewed the patient's lab results. Result diagrams: 09/18/16 03:10 09/18/16 03:10 Lab Results 09/18/16 09/18/16 09/18/16 Range/Units 02:27 03:10 03:10 WBC 11.9 H (4.3-11.1) K/mcL RBC 4.79 (3.82-4.97) M/mcL Hgb 11.6 (11.5-15.4) g/dL Hct 37.2 (35.3-44.9) % MCV 77.7 L (83.0-100.0) fL MCH 24.2 L (28.0-33.3) pg MCHC 31.2 L (31.6-35.5) g/dL RDW 20.6 H (11.5-14.5) % Plt Count 382 (140-400) K/mcL MPV 10.0 (9.4-12.4) fL Immature Gran % 0.4 (0-4) % Seg Neutrophils % 80.6 % Lymphocytes % 13.3 % Monocytes % 5.5 % Eosinophils % 0.1 % Basophils % 0.1 % Neutrophils # 9.6 H (1.6-8.9) K/mcL Lymphocytes # 1.6 (0.6-4.6) K/mcL Monocytes # 0.7 (0.0-1.3) K/mcL Eosinophils # 0.0 (0.0-0.6) K/mcL Basophils # 0.0 (0.0-0.2) K/mcL PT 14.4 H (9.4-12.1) Seconds INR 1.3 APTT 34.1 (26.0-36.0) Seconds Sodium (136-145) mEq/L Potassium (3.5-4.5) mEq/L Chloride (98-109) mEq/L Carbon Dioxide (19-29) mEq/L BUN (7-20) mg/dL Creatinine (0.57-1.11) mg/dL Est GFR ( Amer) (> 60) Est GFR (Non-Af Amer) (> 60) BUN/Creatinine Ratio (6-26) Glucose (70-99) mg/dL POC Glucose 113 H (58-89) Calculated Osmolality (280-300) Calcium (8.6-10.8) mg/dL Troponin I (0-0.03) ng/mL Urine Color (Yellow) Urine Clarity (Clear) Urine pH (5.0-8.0) pH Units Ur Specific Marion (1.010-1.025) Urine Protein (Neg-Trace) mg/dL Urine Glucose (UA) (Normal) mg/dL Urine Ketones (Negative) mg/dL Urine Blood (Negative) Urine Nitrite (Negative) Urine Bilirubin (Negative) Urine Urobilinogen (Normal) mg/dL Ur Leukocyte Esterase (Negative) Urine Microscopic RBC (0-3) per hpf Urine Microscopic WBC (0-3) per hpf Ur Squamous Epith Cells (None-Few) per lpf Urine Bacteria (None-Few) per hpf Hyaline Casts (None-Few) per lpf Urine Yeast (None Seen) per hpf Ur Culture Indicated? (NO) Urine Opiates Screen (Uekbjr=249) ng/mL Ur Barbiturates Screen (Qhhgii=599) ng/mL Ur Phencyclidine Scrn (Cutoff=25) ng/mL Ur Amphetamines Screen (Zkacbj=1202) ng/mL U Benzodiazepines Scrn (Pokzqi=552) ng/mL Urine Cocaine Screen (Cutoff= 300) ng/mL U Marijuana (THC) Screen (Cutoff = 50) ng/mL 09/18/16 09/18/16 09/18/16 Range/Units 03:10 03:10 03:20 WBC (4.3-11.1) K/mcL RBC (3.82-4.97) M/mcL Hgb (11.5-15.4) g/dL Hct (35.3-44.9) % MCV (83.0-100.0) fL MCH (28.0-33.3) pg MCHC (31.6-35.5) g/dL RDW (11.5-14.5) % Plt Count (140-400) K/mcL MPV (9.4-12.4) fL Immature Gran % (0-4) % Seg Neutrophils % % Lymphocytes % % Monocytes % % Eosinophils % % Basophils % % Neutrophils # (1.6-8.9) K/mcL Lymphocytes # (0.6-4.6) K/mcL Monocytes # (0.0-1.3) K/mcL Eosinophils # (0.0-0.6) K/mcL Basophils # (0.0-0.2) K/mcL PT (9.4-12.1) Seconds INR APTT (26.0-36.0) Seconds Sodium 144 (136-145) mEq/L Potassium 2.9 L (3.5-4.5) mEq/L Chloride 105 (98-109) mEq/L Carbon Dioxide 26 (19-29) mEq/L BUN 8 (7-20) mg/dL Creatinine 0.87 (0.57-1.11) mg/dL Est GFR ( Amer) > 60 (> 60) Est GFR (Non-Af Amer) > 60 (> 60) BUN/Creatinine Ratio 9 (6-26) Glucose 116 H (70-99) mg/dL POC Glucose (58-89) Calculated Osmolality 297 (280-300) Calcium 7.9 L (8.6-10.8) mg/dL Troponin I 0.25 H* (0-0.03) ng/mL Urine Color Yellow (Yellow) Urine Clarity Cloudy A (Clear) Urine pH 6.5 (5.0-8.0) pH Units Ur Specific Marion 1.019 (1.010-1.025) Urine Protein Trace (Neg-Trace) mg/dL Urine Glucose (UA) Normal (Normal) mg/dL Urine Ketones 40 H (Negative) mg/dL Urine Blood Small H (Negative) Urine Nitrite Positive A (Negative) Urine Bilirubin Negative (Negative) Urine Urobilinogen Normal (Normal) mg/dL Ur Leukocyte Esterase Large H (Negative) Urine Microscopic RBC 5-15 H (0-3) per hpf Urine Microscopic WBC TNTC H (0-3) per hpf Ur Squamous Epith Cells Many H (None-Few) per lpf Urine Bacteria Many H (None-Few) per hpf Hyaline Casts Moderate H (None-Few) per lpf Urine Yeast Few H (None Seen) per hpf Ur Culture Indicated? YES A (NO) Urine Opiates Screen (Dhyoyl=189) ng/mL Ur Barbiturates Screen (Omtfpn=543) ng/mL Ur Phencyclidine Scrn (Cutoff=25) ng/mL Ur Amphetamines Screen (Phcpaq=2824) ng/mL U Benzodiazepines Scrn (Zhyylm=090) ng/mL Urine Cocaine Screen (Cutoff= 300) ng/mL U Marijuana (THC) Screen (Cutoff = 50) ng/mL 09/18/16 Range/Units 03:20 WBC (4.3-11.1) K/mcL RBC (3.82-4.97) M/mcL Hgb (11.5-15.4) g/dL Hct (35.3-44.9) % MCV (83.0-100.0) fL MCH (28.0-33.3) pg MCHC (31.6-35.5) g/dL RDW (11.5-14.5) % Plt Count (140-400) K/mcL MPV (9.4-12.4) fL Immature Gran % (0-4) % Seg Neutrophils % % Lymphocytes % % Monocytes % % Eosinophils % % Basophils % % Neutrophils # (1.6-8.9) K/mcL Lymphocytes # (0.6-4.6) K/mcL Monocytes # (0.0-1.3) K/mcL Eosinophils # (0.0-0.6) K/mcL Basophils # (0.0-0.2) K/mcL PT (9.4-12.1) Seconds INR APTT (26.0-36.0) Seconds Sodium (136-145) mEq/L Potassium (3.5-4.5) mEq/L Chloride (98-109) mEq/L Carbon Dioxide (19-29) mEq/L BUN (7-20) mg/dL Creatinine (0.57-1.11) mg/dL Est GFR ( Amer) (> 60) Est GFR (Non-Af Amer) (> 60) BUN/Creatinine Ratio (6-26) Glucose (70-99) mg/dL POC Glucose (58-89) Calculated Osmolality (280-300) Calcium (8.6-10.8) mg/dL Troponin I (0-0.03) ng/mL Urine Color (Yellow) Urine Clarity (Clear) Urine pH (5.0-8.0) pH Units Ur Specific Marion (1.010-1.025) Urine Protein (Neg-Trace) mg/dL Urine Glucose (UA) (Normal) mg/dL Urine Ketones (Negative) mg/dL Urine Blood (Negative) Urine Nitrite (Negative) Urine Bilirubin (Negative) Urine Urobilinogen (Normal) mg/dL Ur Leukocyte Esterase (Negative) Urine Microscopic RBC (0-3) per hpf Urine Microscopic WBC (0-3) per hpf Ur Squamous Epith Cells (None-Few) per lpf Urine Bacteria (None-Few) per hpf Hyaline Casts (None-Few) per lpf Urine Yeast (None Seen) per hpf Ur Culture Indicated? (NO) Urine Opiates Screen Negative (Vwdyps=931) ng/mL Ur Barbiturates Screen Negative (Vpujcl=325) ng/mL Ur Phencyclidine Scrn Negative (Cutoff=25) ng/mL Ur Amphetamines Screen Negative (Njyzfo=5070) ng/mL U Benzodiazepines Scrn Negative (Ggqnuo=215) ng/mL Urine Cocaine Screen Negative (Cutoff= 300) ng/mL U Marijuana (THC) Screen Negative (Cutoff = 50) ng/mL - Radiology Data Radiology results reviewed: Yes I reviewed the patient's radiology results. Head CT 09/18/16 02:18 IMPRESSION: No acute intracranial abnormality. No significant change compared to prior study. D/ / Johny Byrne MD / Johny Byrne MD Interpreting Provider: Johny Byrne MD Chest X-Ray 09/18/16 02:19 IMPRESSION: Stable mild cardiomegaly, without acute airspace consolidation or CHF. D/ / Hardeep Griffiths MD / Hardeep Griffiths MD Interpreting Provider: Hardeep Griffiths MD - EKG Data EKG #1 EKG attestation: Yes I reviewed and interpreted this EKG. EKG results narrative: EKG dated 18 September 2016 at 02:34 interpreted as ventricular paced at a rate of 99. Compared to previous dated 10/25/2013 which is not a paced rhythm. NIH Stroke Scale - Level of Consciousness LOC: Alert - LOC Questions LOC Questions: Answers both correctly - LOC Commands LOC Commands: Performs both correctly - Best Gaze Best Gaze: Normal - Visual Visual: No visual loss - Facial Palsy Facial Palsy: Normal - Motor Arms Motor Arm-Left: No drift for 10 seconds Motor Arm-Right: No drift for 10 seconds - Motor Legs Motor Leg-Left: No drift for 5 seconds Motor Leg-Right: No drift for 5 seconds - Limb Ataxia Limb Ataxia: Absent of affected limb too weak to perform exam - Sensory Sensory: Normal - Best Language Best Language: No aphasia - Dysarthria Dysarthria: Normal - Extinction and Inattention Extinction and Inattention: Normal - NIHSS Total Score NIHSS Total Score: 0
[2016-09-18 03:29] LABS: Activated Partial Thrombo Time 34.1 Seconds (26.0-36.0)
[2016-09-18 03:30] LABS: Bilirubin,Urine Negative (Negative); Blood,Urine Small (Negative); Clarity,Urine Cloudy (Clear); Color,Urine Yellow (Yellow); Glucose,Urine (UA) Normal (Normal); Ketones,Urine 40 mg/dL (Negative); Leukocyte Esterase,Urine Large (Negative); Nitrite,Urine Positive (Negative); PH,Urine 6.5 pH Units (5.0-8.0); Protein,Urine Trace mg/dL (Neg-Trace); Specific Gravity,Urine 1.019 (1.010-1.025); Urobilinogen,Urine Normal (Normal)
[2016-09-18 03:31] LABS: BUN/Creatinine Ratio 9 (6-26); Blood Urea Nitrogen 8 mg/dL (7-20); Calcium 7.9 mg/dL (8.6-10.8); Carbon Dioxide 26 mEq/L (19-29); Chloride 105 mEq/L (98-109); Glucose 116 mg/dL (70-99); Osmolality,Calculated 297 (280-300); Potassium 2.9 mEq/L (3.5-4.5); Sodium 144 mEq/L (136-145); eGFR For African Americans > 60 (> 60); eGFR For Non-African Americans > 60 (> 60)
[2016-09-18 03:32] LABS: Bacteria,Urine Many per hpf (None-Few); Hyaline Casts,Urine Moderate per lpf (None-Few); Squamous Epithelial Cell,Urine Many per lpf (None-Few); WBC,Urine TNTC per hpf (0-3)
[2016-09-18 03:37] LABS: Amphetamine Screen,Urine Negative ng/mL (Cutoff=1000); Barbiturate Screen,Urine Negative ng/mL (Cutoff=200); Benzodiazepines Screen,Urine Negative ng/mL (Cutoff=200); Cannabinoid Screen,Urine Negative ng/mL (Cutoff = 50); Cocaine Screen,Urine Negative ng/mL (Cutoff= 300); Opiate Screen,Urine Negative ng/mL (Cutoff=300); Phencyclidine Screen,Urine Negative ng/mL (Cutoff=25)
[2016-09-18 03:40] LABS: Yeast,Urine Few per hpf (None Seen)
[2016-09-18] MEDS ORDERED: Aspirin 81 MG TAB.CHEW PO ONE (03:59)
[2016-09-18] MEDS ORDERED: Potassium Chloride 40 MEQ, Lidocaine 1% 2 ML in D5% in Water 500 ML IVPB ONE (04:30)
[2016-09-18] MEDS ORDERED: *HR* Metoprolol 5 MG/5 ML VIAL IVP ONE (05:02)
[2016-09-18] MEDS ORDERED: *HR* Labetalol 20 MG/4 ML SYRINGE IVP ONE (05:06)
[2016-09-18] MEDS ORDERED: *HR* Enoxaparin 40 MG/0.4 ML SYRINGE SQ ONE (10:40)
--- NOTE | 2016-09-18 10:46 | Internal Med History&Physical ---
Date of Encounter: 09/18/16 Time of Encounter: 10:43 Assessment and Plan (1) UTI (urinary tract infection) Current visit: Yes Status: Acute We will start the patient on ceftriaxone according to prior cultures. Qualifiers: Urinary tract infection type: site unspecified Hematuria presence: with hematuria Qualified Code(s): N39.0 - Urinary tract infection, site not specified; R31.9 - Hematuria, unspecified (2) Elevated troponin Current visit: Yes Status: Acute No active chest pain. EKG shows paced rhythm. Serial troponin. I will give the patient one dose of Lovenox. Continue aspirin and beta blockers. She actually had a coronary angiogram in 2008 showing 70 to 80% DIAGONAL disease 70 % mid LAD and moderate disease in the circumflex. I will start the patient on heparin drip and speak with cardiology Internal Medicine - H&P: HPI Chief complaint: AMS History of present illness: Ms. Reis is a 75 year old female who presents to the emergency room today with altered mental status. Patient was noted to be less interactive. Leaning towards the right side. However patient mentioned that she is always leaning that way. Patient is unable to provide history. Seems she is moving all extremities and speech is clear. She was found on workup in the emergency room to have a urinary tract infection. No chest pain. She was afebrile and emergency room. During my interview patient is alert able to communicate with yes or no answers. Patient had a coronary angiogram in 2008 showing 70 to 80% diagonal disease, 70% with a lAD disease, moderate disease in the circumflex Past Med Surg Social Fam HX - Past Medical History Medical history: arthritis, diabetes, hypertension Psychiatric history: no psych history - Past Surgical History Surgical History: pacemaker/AICD, other - Social History Smoking Status: Former smoker Smokeless Tobacco Status: No Alcohol use: none Drug use: none - Family History Father Adopted: No Family Member Ethnicity: Non- Living Status: Hx Family Cardiac Disorders: Yes Hx Family Respiratory Disorders: No Hx Family Cancer: No Hx Family GI Disorders: No Hx Family Endocrine Disorder: Yes Hx Family Neuromuscular Disorders: No Hx Family Neurologic Disorders: No Hx Family HEENT Disorders: No Hx Family Autoimmune Disorders: No Internal Medicine - H&P: Meds Ascorbate Calcium [Vitamin C] 500 mg PO BID 08/12/16 [History] Aspirin [Lo-Dose Aspirin EC] 81 mg PO DAILY 08/12/16 [History] Atorvastatin [Lipitor] 40 mg PO HS 08/12/16 [History] BuPROPion SR (12 HR) [Wellbutrin SR] 150 mg PO BID 08/12/16 [History] Calcium Carbonate [Calcium] 600 mg PO BID 08/12/16 [History] Cholecalciferol (Vitamin D3) [Vitamin D3] 2,000 unit PO DAILY 08/12/16 [History] Cilostazol 50 mg PO BID 08/12/16 [History] CloNIDine HCl [Kapvay] 0.1 mg PO BID 08/12/16 [History] DiphenhydraMINE [Benadryl] 25 mg PO BID PRN 08/12/16 [History] Docusate [Colace] 100 mg PO BID 08/12/16 [History] Escitalopram [Lexapro] 10 mg PO HS 08/12/16 [History] Estrogens, Conjugated [Premarin Cream] 1 appl VG MOWEFR 08/12/16 [History] Fexofenadine HCl [Allergy Relief] 180 mg PO DAILY 08/12/16 [History] Gabapentin [Neurontin] 300 mg PO TID 08/12/16 [History] Levothyroxine [Synthroid] 25 mcg PO DAILY 08/12/16 [History] Magnesium Hydroxide [Milk of Magnesia] 30 ml PO DAILY PRN 08/12/16 [History] Melatonin/Pyridoxine HCl (B6) [Melatonin 3 mg Tablet] 3 mg PO HS 08/12/16 [ History] Metoprolol [Lopressor] 25 mg PO BID 08/12/16 [History] Oxybutynin Chloride [Ditropan Xl] 10 mg PO DAILY 08/12/16 [History] Oxycodone HCl/Acetaminophen [Percocet 5-325 mg Tablet] 1 - 2 tab PO Q4H PRN [History] Pentoxifylline [TRENtal] 400 mg PO BID 08/12/16 [History] Polyethylene Glycol 3350 [Gavilax] 17 gm PO DAILY 08/12/16 [History] Polyvinyl Alcohol/Povidone/Pf [Refresh Classic Eye Drops] 1 drop OP DAILY [History] Ranitidine HCl [Acid Acute Specialist] 75 mg PO BID 08/12/16 [History] Sennosides [Senna] 8.6 mg PO BID 08/12/16 [History] Zinc Acetate [Galzin] 50 mg PO DAILY 08/12/16 [History] amLODIPine [Norvasc] 10 mg PO DAILY 08/12/16 [History] traZODone [TraZODone] 50 mg PO HS 08/12/16 [History] Magnesium Oxide [Mag-Ox] 400 mg PO BID #6 tablet 08/14/16 [Rx] Multivitamin,Therapeutic [Thera-Tabs] 1 each PO DAILY #30 tablet 08/14/16 [Rx] Allergies Penicillins Allergy (Unknown, Verified 09/18/16 02:36) See Comments Unknown reaction- Listed on ECF med list- Sulfa (Sulfonamide Antibiotics) Allergy (Unknown, Verified 09/18/16 02:36) See Comments Unknown reaction- Listed on ECF med list- tetanus toxoid, adsorbed Allergy (Unknown, Verified 09/18/16 02:36) See Comments Unknown reaction- Listed on ECF med list- All Systems PM: A 10-system review of systems was performed and is negative for pertinent findings except as documented above in the HPI. Review of systems: 10 point review of systems is negative except for HPI - Constitutional Vitals: Temp Pulse Resp BP Pulse Ox 97.9 F 76 17 146/67 95 09/18/16 06:48 09/18/16 06:48 09/18/16 06:48 09/18/16 06:48 09/18/16 06:48 Exam: Gen.: patient is alert oriented times 3 not in distress. Cardiac: normal S1 S2 no additional sounds or murmurs chest: fair air entry. no active wheezing. No crackles or bronchial breathing. abdomen: soft nontender nondistended normal bowel sounds neuro: no focal deficit Neuro: Not cooperative with exam. But moving all extremeties. Hand technical supervisor similar bilaterally, speech normal. Internal Med - H&P Results - Labs CBC & Chem 7: 09/18/16 03:10 09/18/16 03:10
[2016-09-18] MEDS ORDERED: *HR* Heparin 5,000 UNIT/ML VIAL IVP PRN ×2 (10:51)
[2016-09-18] MEDS ORDERED: *HR* Heparin 5,000 UNIT/ML VIAL IVP ONE (10:51)
[2016-09-18] MEDS ORDERED: Heparin 25,000 UNIT/500 ML D5W 25,000 UNIT/500 ML MLS IVC SCH (11:00)
[2016-09-18] MEDS: D5% in 0.9% NACL 1,000 ML IVC SCH (11:25)
--- NOTE | 2016-09-18 11:41 | Cardiology Consult Note ---
Date of Encounter: 09/18/16 Time of Encounter: 11:40 Assessment and Plan (1) Elevated troponin Current Visit: Yes Status: Acute Initial troponin 0.25 in setting of UTI and acute mental status changes. Suspect demand ischemia, nondiagnostic for ACS. Trend troponins. Pt is confused, not oriented to person, place or time. When asked about chest pain she shakes her head no. Heparin gtt not warranted at this time since suspected demand ischemia. Pt is on ASA, Statin, BB. Continue. Echo 2013 EF preserved. Negative stress test 2012 at [facility]. Will discuss with Dr. Mireles to determine if repeat echo is warranted. (2) Pacemaker Current Visit: Yes Status: Acute Hx of dual chamber PPM inserted at [facility] for complete heart block. EKG shows intermittent ventricular pacing. Underlying rhythm appears irregular, also with p waves of differing morphology--underlying A-Fib vs. MAT. Recommend continuous telemetry monitoring. Will recheck EKG. Even if pt has confirmed A-Fib, unlikely she would be a good candidate for anticoagulation at this time given her confusion and falls risk. (3) Hypokalemia Current Visit: Yes Status: Acute K 2.9. Will replace. (4) CAD (coronary artery disease) Current Visit: Yes Status: Acute LHC 2008 70-80% LAD s/p PCI, remaining 50-60% left circ disease. ASA, Statin, BB. Qualifiers: Coronary Disease-Associated Artery/Lesion type: [place] artery [place] vs. transplanted heart: [place] heart Associated angina: without angina Qualified Code(s): I25.10 - Atherosclerotic heart disease of [place] coronary artery without angina pectoris Discussion w patient/family: The assessment and plan as outlined above was discussed with the patient and/or family members who expressed understanding and agreement. All questions were answered. Thank you for involving us in the care of your patient. Please call with any questions. I will discuss all the above with Dr. Mireles and make changes as necessary. History of Present Illness Consult date: 09/18/16 Requesting physician: Nathan Johnson Consult reason: Elevated troponin History of present illness: Ms. Reis is a 75 year old female with PMH of CAD s/p LAD stent in 2008, CHB s/p dual chamber PPM, PVD, who presented from ED to F with altered mental status. Patient was noted to be less interactive. Leaning towards the right side. Patient is unable to provide history. She was found to have a UTI. Troponin 0.25 and cardiology was consulted. During my exam, but did not verbally communicate, only shook her head yes or no to questions. She shook her head no when asked if she had been having any chest pain. Pt unable to tell me her name , location, or year. EKG shows intermittent ventricular pacing. Underlying rhythm appears irregular, also with p waves of differing morphology--underlying A-Fib vs. MAT. Prior CV testing: LHC 2008 70-80% LAD s/p PCI, remaining 50-60% left circ disease. Nuclear stress 2012 at [facility] negative for ischemia Echo 2013 EF >70%, moderate (grade II) diastolic dysfunction, mild MR/AR, mild . Past Med Surg Social Fam HX - Past Medical History Medical history: arthritis, coronary artery disease, diabetes, hypertension Psychiatric history: no psych history - Past Surgical History Surgical History: angioplasty/stent, pacemaker/AICD, other - Social History Smoking Status: Former smoker Smokeless Tobacco Status: No Alcohol use: none Drug use: none - Family History Father Adopted: No Family Member Ethnicity: Non- Living Status: Hx Family Cardiac Disorders: Yes Hx Family Respiratory Disorders: No Hx Family Cancer: No Hx Family GI Disorders: No Hx Family Endocrine Disorder: Yes Hx Family Neuromuscular Disorders: No Hx Family Neurologic Disorders: No Hx Family HEENT Disorders: No Hx Family Autoimmune Disorders: No Medications and Allergies Ascorbate Calcium [Vitamin C] 500 mg PO BID 08/12/16 [History] Aspirin [Lo-Dose Aspirin EC] 81 mg PO DAILY 08/12/16 [History] Atorvastatin [Lipitor] 40 mg PO HS 08/12/16 [History] BuPROPion SR (12 HR) [Wellbutrin SR] 150 mg PO BID 08/12/16 [History] Calcium Carbonate [Calcium] 600 mg PO BID 08/12/16 [History] Cholecalciferol (Vitamin D3) [Vitamin D3] 2,000 unit PO DAILY 08/12/16 [History] Cilostazol 50 mg PO BID 08/12/16 [History] CloNIDine HCl [Kapvay] 0.1 mg PO BID 08/12/16 [History] DiphenhydraMINE [Benadryl] 25 mg PO BID PRN 08/12/16 [History] Docusate [Colace] 100 mg PO BID 08/12/16 [History] Escitalopram [Lexapro] 10 mg PO HS 08/12/16 [History] Estrogens, Conjugated [Premarin Cream] 1 appl VG [id number] 08/12/16 [History] Fexofenadine HCl [Allergy Relief] 180 mg PO DAILY 08/12/16 [History] Gabapentin [Neurontin] 300 mg PO TID 08/12/16 [History] Levothyroxine [Synthroid] 25 mcg PO DAILY 08/12/16 [History] Magnesium Hydroxide [Milk of Magnesia] 30 ml PO DAILY PRN 08/12/16 [History] Melatonin/Pyridoxine HCl (B6) [Melatonin 3 mg Tablet] 3 mg PO HS 08/12/16 [ History] Metoprolol [Lopressor] 25 mg PO BID 08/12/16 [History] Oxybutynin Chloride [Ditropan Xl] 10 mg PO DAILY 08/12/16 [History] Oxycodone HCl/Acetaminophen [Percocet 5-325 mg Tablet] 1 - 2 tab PO Q4H PRN [History] Pentoxifylline [TRENtal] 400 mg PO BID 08/12/16 [History] Polyethylene Glycol 3350 [Gavilax] 17 gm PO DAILY 08/12/16 [History] Polyvinyl Alcohol/Povidone/Pf [Refresh Classic Eye Drops] 1 drop OP DAILY [History] Ranitidine HCl [Acid [employer]ation Controls Specialist] 75 mg PO BID 08/12/16 [History] Sennosides [Senna] 8.6 mg PO BID 08/12/16 [History] Zinc Acetate [Galzin] 50 mg PO DAILY 08/12/16 [History] amLODIPine [Norvasc] 10 mg PO DAILY 08/12/16 [History] traZODone [TraZODone] 50 mg PO HS 08/12/16 [History] Magnesium Oxide [Mag-Ox] 400 mg PO BID #6 tablet 08/14/16 [Rx] Multivitamin,Therapeutic [Thera-Tabs] 1 each PO DAILY #30 tablet 08/14/16 [Rx] Allergies Penicillins Allergy (Unknown, Verified 09/18/16 02:36) See Comments Unknown reaction- Listed on ECF med list- Sulfa (Sulfonamide Antibiotics) Allergy (Unknown, Verified 09/18/16 02:36) See Comments Unknown reaction- Listed on ECF med list- tetanus toxoid, adsorbed Allergy (Unknown, Verified 09/18/16 02:36) See Comments Unknown reaction- Listed on ECF med list- ROS unobtainable: due to mental status All Systems Review: A 10-system review of systems was performed and is negative for pertinent findings except as documented above in the HPI. Physical Examination Vital Signs Temp Pulse Resp BP Pulse Ox 09/18/16 06:48 97.9 F 76 17 146/67 95 09/18/16 06:07 20 145/86 09/18/16 05:00 93 20 141/82 98 09/18/16 04:30 92 20 169/105 100 09/18/16 04:00 82 20 148/92 98 09/18/16 03:30 78 20 144/83 99 09/18/16 03:00 109 20 159/79 100 09/18/16 02:17 102 20 161/92 100 09/18/16 02:15 98.2 F 93 20 166/105 99 Intake and Output 09/17/16 09/18/16 09/18/16 23:59 07:59 15:59 Other: Weight 76.26 kg Blood Glucose* 113 Patient Weight 09/18/16 23:59 Weight 76.26 kg General: Other (confused, nonconversant.) HEENT: Atraumatic, Normocephaly, Mucus Membranes Moist Neck: No JVD, Normal carotid pulses Cardiac: Reg Rate and Rhythm, Normal S1 and S2, Other (2/6 ADONIS) Lungs: Other (diminished) Neuro: Other (Confused) Abdomen: Soft, Non-Tender Skin: No rashes noted on visualized skin Musculoskeletal: No Chest Wall Tenderness Extremities: No Clubbing, No Cyanosis, No Edema, Normal Pulses Results 09/18/16 03:10 09/18/16 03:10 Short CBC 09/18/16 Range/Units 03:10 WBC 11.9 H (4.3-11.1) K/mcL Hgb 11.6 (11.5-15.4) g/dL Hct 37.2 (35.3-44.9) % Plt Count 382 (140-400) K/mcL Neutrophils # 9.6 H (1.6-8.9) K/mcL BMP 09/18/16 Range/Units 03:10 Sodium 144 (136-145) mEq/L Potassium 2.9 L (3.5-4.5) mEq/L Chloride 105 (98-109) mEq/L Carbon Dioxide 26 (19-29) mEq/L BUN 8 (7-20) mg/dL Creatinine 0.87 (0.57-1.11) mg/dL Glucose 116 H (70-99) mg/dL Calcium 7.9 L (8.6-10.8) mg/dL Cardiac Enzymes 09/18/16 Range/Units 03:10 Troponin I 0.25 H* (0-0.03) ng/mL Urine 09/18/16 Range/Units 03:20 Urine Color Yellow (Yellow) Urine Clarity Cloudy A (Clear) Urine pH 6.5 (5.0-8.0) pH Units Ur Specific [place] 1.019 (1.010-1.025) Urine Protein Trace (Neg-Trace) mg/dL Urine Glucose (UA) Normal (Normal) mg/dL Impressions Head CT 09/18/16 02:18 IMPRESSION: No acute intracranial abnormality. No significant change compared to prior study. D/ / Johny Byrne MD / Johny Byrne MD Interpreting Provider: Johny Byrne MD Chest X-Ray 09/18/16 02:19 IMPRESSION: Stable mild cardiomegaly, without acute airspace consolidation or CHF. D/ / 09/18/2016 08:22:46 Hardeep Griffiths MD / bcarter Interpreting Provider: Hardeep Griffiths MD Active Medications Aspirin (Aspirin Ec) 81 mg PO DAILY BRIAN Stop: 03/21/17 09:01 Atorvastatin Calcium (Lipitor) 40 mg PO HS BRIAN Stop: 03/20/17 21:01 Heparin Sodium (Porcine) (Heparin) 4,000 unit IVP Q6HR PRN PRN Reason: SEE COMMENTS Stop: 03/20/17 10:52 Heparin Sodium (Porcine) (Heparin) 2,000 unit IVP Q6H PRN PRN Reason: SEE COMMENTS Stop: 03/20/17 10:52 Ceftriaxone Sodium 1,000 mg/ (Dextrose) 100 mls @ 200 mls/hr IVPB Q24H BRIAN Stop: 03/20/17 11:01 Last Admin: 09/18/16 11:25 Dose: 200 mls/hr Dextrose/Sodium Chloride (D5% And 0.9% Nacl 1000 Ml) 1,000 mls @ 60 mls/hr IVC .[id number] [facility] Stop: 03/20/17 10:46 Last Admin: 09/18/16 11:25 Dose: 60 mls/hr Heparin Sodium/Dextrose (Heparin 25,000 Unit/500 Ml D5w) 25,000 unit in 500 mls @ 18.302 mls/hr IVC .Q24H BRIAN; 12 UNIT/KG/HR PRN Reason: Protocol Stop: 03/20/17 11:01 Levothyroxine Sodium (Synthroid) 25 mcg PO 0630 [facility] Stop: 03/21/17 06:31 Metoprolol Tartrate (Lopressor) 25 mg PO BID [facility] Stop: 03/20/17 21:01 - Imaging and Cardiology Echo: report reviewed Cardiac cath: report reviewed - EKG Interpretation EKG results cardiology: personally reviewed (V-paced intermittently with A-Fib vs. MAT underlying.) Consult Discharge Plan - Plan Referrals: Carlos Alberto Nguyễn MD [Primary Care Provider] -
[2016-09-18] MEDS: *HR* LORazepam 2 MG/ML VIAL IM STA ×2 (13:39→15:03)
--- NOTE | 2016-09-18 16:15 | Electrocardiograph Report ---
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
[2016-09-18] MEDS ORDERED: Haloperidol Lactate 5 MG/ML VIAL IM ONE (17:46)
[2016-09-18] MEDS ORDERED: *HR* LORazepam 2 MG/ML VIAL IM STA (17:47)
[2016-09-18 18:12] LABS: Hematocrit 34.4 % (35.3-44.9); Hemoglobin 10.8 g/dL (11.5-15.4); Mean Corpuscular HGB Conc 31.4 g/dL (31.6-35.5); Mean Corpuscular Hemoglobin 24.3 pg (28.0-33.3); Mean Corpuscular Volume 77.5 fL (83.0-100.0); Mean Platelet Volume 10.4 fL (9.4-12.4); Platelet Count 359 K/mcL (140-400); Red Blood Count 4.44 M/mcL (3.82-4.97); Red Cell Distribution Width 20.4 % (11.5-14.5)
[2016-09-18 18:17] LABS: INR 1.4; Prothrombin Time 15.1 Seconds (9.4-12.1)
[2016-09-18 18:19] LABS: Activated Partial Thrombo Time 32.4 Seconds (26.0-36.0)
[2016-09-19 03:57] LABS: Basophils % 0.1 %; Eosinophils % 0.1 %; Hematocrit 30.5 % (35.3-44.9); Immature Granulocytes % 0.7 % (0-4); Lymphocytes # 1.8 K/mcL (0.6-4.6); Lymphocytes % 13.3 %; Mean Corpuscular HGB Conc 32.8 g/dL (31.6-35.5); Mean Corpuscular Hemoglobin 25.3 pg (28.0-33.3); Mean Corpuscular Volume 77.2 fL (83.0-100.0); Mean Platelet Volume 10.3 fL (9.4-12.4); Monocytes # 0.9 K/mcL (0.0-1.3); Monocytes % 6.3 %; Neutrophils # 10.9 K/mcL (1.6-8.9); Platelet Count 313 K/mcL (140-400); Red Blood Count 3.95 M/mcL (3.82-4.97); Red Cell Distribution Width 20.3 % (11.5-14.5); Segmented Neutrophils % 79.5 %
[2016-09-19 04:05] LABS: BUN/Creatinine Ratio 12 (6-26); Blood Urea Nitrogen 10 mg/dL (7-20); Calcium 7.5 mg/dL (8.6-10.8); Carbon Dioxide 26 mEq/L (19-29); Chloride 106 mEq/L (98-109); Glucose 141 mg/dL (70-99); Magnesium 1.3 mg/dL (1.6-2.6); Osmolality,Calculated 293 (280-300); Potassium 3.1 mEq/L (3.5-4.5); Sodium 141 mEq/L (136-145); eGFR For African Americans > 60 (> 60); eGFR For Non-African Americans > 60 (> 60)
[2016-09-19] MEDS ORDERED: Haloperidol Lactate 5 MG/ML VIAL IM ONE (04:52)
[2016-09-19] MEDS: Levothyroxine 25 MCG TABLET PO SCH (05:22)
[2016-09-19] MEDS: Aspirin Enteric Coated 81 MG Tablet PO SCH (09:44)
[2016-09-19] MEDS ORDERED: Ondansetron 4 MG/2 ML VIAL IVP PRN (12:42)
--- NOTE | 2016-09-19 12:42 | Cardiology Progress Note ---
Date of Encounter: 09/19/16 Time of Encounter: 12:42 Assessment and Plan (1) Elevated troponin Current Visit: Yes Status: Acute Troponin 0.25, 0.21 in setting of UTI and acute mental status changes. Suspect demand ischemia, nondiagnostic for ACS. Pt is confused, not oriented to person, place or time. When asked about chest pain she shakes her head no. Heparin gtt not warranted since suspected demand ischemia. Pt is on ASA, Statin, BB. Continue. Echo 2013 EF preserved. Negative stress test 2012 at [facility]. Cardiology signing off. Reconsult PRN. No need for further cardiac testing. (2) Pacemaker Current Visit: Yes Status: Acute Hx of dual chamber PPM inserted at [facility] for complete heart block. EKG shows intermittent ventricular pacing. Underlying rhythm appears to be [place] pacemaker vs MAT. HR controlled per vitals. No furthre testing. (3) Hypokalemia Current Visit: Yes Status: Acute K 3.3. Will replace. (4) CAD (coronary artery disease) Current Visit: Yes Status: Acute LHC 2008 70-80% LAD s/p PCI, remaining 50-60% left circ disease. ASA, Statin, BB. Qualifiers: Coronary Disease-Associated Artery/Lesion type: [place] artery [place] vs. transplanted heart: [place] heart Associated angina: without angina Qualified Code(s): I25.10 - Atherosclerotic heart disease of [place] coronary artery without angina pectoris Discussion w patient/family: The assessment and plan as outlined above was discussed with the patient and/or family members who expressed understanding and agreement. All questions were answered. Thank you for involving us in the care of your patient. Please call with any questions. I will discuss all the above with Dr. Mireles and make changes as necessary. Subjective Principal diagnosis: Elevated troponin, UTI, AMS Interval history: Troponin downtrended 0.25, 0.21. Pt remains confused. She ripped off tele--not available for review. Appears P waves were visible, likely component of [place] PPM, intermittent pacing. Objective Vital Signs, Last 4 Hours Temp Pulse Resp BP Pulse Ox 09/19/16 12:00 98.5 F 88 17 158/91 95 Vital Signs Temp Pulse Resp BP Pulse Ox 09/19/16 12:00 98.5 F 88 17 158/91 95 09/19/16 06:53 98.1 F 62 16 160/81 99 06/06/17 03:52 98.0 F 79 15 151/74 97 09/18/16 22:56 98.1 F 93 16 148/80 95 09/18/16 18:20 97.8 F 97 16 133/66 95 09/18/16 15:36 93 16 155/76 97 Intake and Output 09/18/16 09/19/16 09/19/16 23:59 07:59 15:59 Intake Total 60 / 60 Output Total 100 / 100 Balance -40 / -40 Intake: Oral 60 / 60 Output: Urine 50 / 50 Urethral (Stock) 50 / 50 Catheter 50 / 50 General: No Apparent Distress HEENT: Atraumatic, Normocephaly, Mucus Membranes Moist Neck: No JVD, Normal carotid pulses Cardiac: Reg Rate and Rhythm, Normal S1 and S2, No Murmur Lungs: Normal Breath Sounds, No Wheeze, Rales, Rhonchi Neuro: Other (confused) Abdomen: Soft, Non-Tender Skin: No rashes noted on visualized skin Musculoskeletal: No Chest Wall Tenderness Extremities: No Clubbing, No Cyanosis, No Edema, Normal Pulses Results 09/19/16 03:34 09/19/16 03:34 Lab Results 09/18/16 09/18/16 09/18/16 17:59 17:59 17:59 WBC 11.3 H Hgb 10.8 L Hct 34.4 L Plt Count 359 INR 1.4 APTT 32.4 Sodium Potassium Chloride Carbon Dioxide BUN Creatinine Glucose Calcium Magnesium Troponin I 0.21 H* 09/19/16 09/19/16 03:34 03:34 WBC 13.7 H Hgb 10.0 L Hct 30.5 L Plt Count 313 INR APTT Sodium 141 Potassium 3.1 L Chloride 106 Carbon Dioxide 26 BUN 10 Creatinine 0.81 Glucose 141 H Calcium 7.5 L Magnesium 1.3 L Troponin I Short CBC 09/19/16 09/18/16 Range/Units 03:34 17:59 WBC 13.7 H 11.3 H (4.3-11.1) K/mcL Hgb 10.0 L 10.8 L (11.5-15.4) g/dL Hct 30.5 L 34.4 L (35.3-44.9) % Plt Count 313 359 (140-400) K/mcL Neutrophils # 10.9 H (1.6-8.9) K/mcL BMP 09/19/16 Range/Units 03:34 Sodium 141 (136-145) mEq/L Potassium 3.1 L (3.5-4.5) mEq/L Chloride 106 (98-109) mEq/L Carbon Dioxide 26 (19-29) mEq/L BUN 10 (7-20) mg/dL Creatinine 0.81 (0.57-1.11) mg/dL Glucose 141 H (70-99) mg/dL Calcium 7.5 L (8.6-10.8) mg/dL Cardiac Enzymes 09/18/16 Range/Units 17:59 Troponin I 0.21 H* (0-0.03) ng/mL Impressions Chest X-Ray 09/18/16 02:19 IMPRESSION: Stable mild cardiomegaly, without acute airspace consolidation or CHF. D/ / 09/18/2016 08:22:46 Hardeep Griffiths MD / [email or web address] Interpreting Provider: Hardeep Griffiths MD Active Medications Acetaminophen (Tylenol) 650 mg PO Q6HR PRN PRN Reason: Pain Stop: 03/21/17 04:10 Aspirin (Aspirin Ec) 81 mg PO DAILY BRIAN Stop: 03/21/17 09:01 Last Admin: 09/19/16 09:44 Dose: 81 mg Atorvastatin Calcium (Lipitor) 40 mg PO HS BRIAN Stop: 03/20/17 21:01 Last Admin: 09/18/16 20:38 Dose: 40 mg Ceftriaxone Sodium 1,000 mg/ (Dextrose) 100 mls @ 200 mls/hr IVPB Q24H [facility] Stop: 03/20/17 11:01 Last Admin: 09/19/16 09:44 Dose: 200 mls/hr Dextrose/Sodium Chloride (D5% And 0.9% Nacl 1000 Ml) 1,000 mls @ 60 mls/hr IVC .[id number] [facility] Stop: 03/20/17 10:46 Last Admin: 09/18/16 11:25 Dose: 60 mls/hr Levothyroxine Sodium (Synthroid) 25 mcg PO 0630 [facility] Stop: 03/21/17 06:31 Last Admin: 09/19/16 05:22 Dose: Not Given Metoprolol Tartrate (Lopressor) 25 mg PO BID [facility] Stop: 03/20/17 21:01 Last Admin: 09/19/16 09:44 Dose: 25 mg Ondansetron HCl (Zofran) 4 mg IVP Q6HR PRN; Protocol PRN Reason: Nausea And Vomiting Stop: 03/21/17 12:43 Consult Discharge Plan - Plan Referrals: Carlos Alberto Nguyễn MD [Primary Care Provider] -
--- NOTE | 2016-09-19 16:30 | Internal Med Progress Note ---
Date of Encounter: 09/19/16 Time of Encounter: 09:20 - Assessment and plan (1) Acute encephalopathy Current Visit: Yes Status: Acute Assessment and plan: probably due to UTI, continue current meds, monitor closely, supportive care (2) UTI (urinary tract infection) Current Visit: Yes Status: Acute Assessment and plan: gram negative rods in urine, continue IV Rocephin Qualifiers: Urinary tract infection type: site unspecified Hematuria presence: with hematuria Qualified Code(s): N39.0 - Urinary tract infection, site not specified; R31.9 - Hematuria, unspecified (3) Elevated troponin Current Visit: Yes Status: Acute Assessment and plan: ASA, BB, Statin, cardiology following, negative stress test in 2013 at [facility] (4) Pacemaker Current Visit: Yes Status: Acute Assessment and plan: dual chamber PPM for CHB (5) CAD (coronary artery disease) Current Visit: Yes Status: Acute Assessment and plan: s/p PCI to LAD in 2008 - continue ASA, Statin Qualifiers: Coronary Disease-Associated Artery/Lesion type: [place] artery [place] vs. transplanted heart: [place] heart Associated angina: without angina Qualified Code(s): I25.10 - Atherosclerotic heart disease of [place] coronary artery without angina pectoris - Time Spent With Patient less than 15 minutes - Subjective Interval history: Patient is drowy. Does not verbalize well. Does not follow verbal commands. No fever. Hemodynamically stable. No other acute events or complaints. - Constitutional Vitals: Temp Pulse Resp BP Pulse Ox 98.5 F 88 17 158/91 95 09/19/16 12:00 09/19/16 12:00 09/19/16 12:00 09/19/16 12:00 09/19/16 12:00 General appearance: Present: no acute distress Exam: drowsy, does not verbalize well, does not follow verbal commands - Head Head exam: Present: atraumatic - Eye Eye exam: Absent: scleral icterus - ENT ENT exam: Present: mucous membranes moist - Neck Neck exam general surgery: Present: supple - Respiratory Respiratory exam: Present: CTAB. Absent: rhonchi, wheezes - Cardiovascular Cardiovascular exam: Present: RRR, +S1, +S2 - GI/Abdominal GI/Abdominal exam: Present: soft. Absent: guarding, tenderness - Extremities Exam Extremities exam: Present: pedal edema (mild), radial pulses palpable and symetrical. Absent: cyanotic - Neurological Exam Additional comments: drowsy, seems confused at times, able to move all extremities, unable to verbalize well, does not follow verbal commands well. Internal Medicine: Result - Labs CBC & Chem 7: 09/19/16 03:34 09/19/16 03:34 Labs: Short CBC 09/18/16 09/19/16 Range/Units 17:59 03:34 WBC 11.3 H 13.7 H (4.3-11.1) K/mcL Hgb 10.8 L 10.0 L (11.5-15.4) g/dL Hct 34.4 L 30.5 L (35.3-44.9) % Plt Count 359 313 (140-400) K/mcL Neutrophils # 10.9 H (1.6-8.9) K/mcL BMP 09/19/16 03:34 Sodium 141 Potassium 3.1 L Chloride 106 Carbon Dioxide 26 BUN 10 Creatinine 0.81 Glucose 141 H Calcium 7.5 L Cardiac Enzymes 09/18/16 Range/Units 17:59 Troponin I 0.21 H* (0-0.03) ng/mL - ABG Interpretation ABG results: PT/INR, D-dimer PT 15.1 Seconds (9.4-12.1) H 09/18/16 17:59 Consult Discharge Plan - Plan Referrals: Carlos Alberto Nguyễn MD [Primary Care Provider] -
[2016-09-19] MEDS: Acetaminophen 325 MG TABLET PO PRN (20:01)
[2016-09-20 04:57] LABS: Basophils % 0.2 %; Eosinophils % 0.1 %; Hematocrit 32.2 % (35.3-44.9); Immature Granulocytes % 0.4 % (0-4); Lymphocytes # 1.6 K/mcL (0.6-4.6); Mean Corpuscular HGB Conc 31.1 g/dL (31.6-35.5); Mean Corpuscular Hemoglobin 24.2 pg (28.0-33.3); Mean Platelet Volume 10.8 fL (9.4-12.4); Monocytes # 0.6 K/mcL (0.0-1.3); Monocytes % 5.6 %; Neutrophils # 8.2 K/mcL (1.6-8.9); Platelet Count 351 K/mcL (140-400); Red Blood Count 4.13 M/mcL (3.82-4.97); Red Cell Distribution Width 20.6 % (11.5-14.5); Segmented Neutrophils % 78.7 %
[2016-09-20 05:12] LABS: BUN/Creatinine Ratio 15 (6-26); Blood Urea Nitrogen 12 mg/dL (7-20); Calcium 7.4 mg/dL (8.6-10.8); Carbon Dioxide 27 mEq/L (19-29); Chloride 109 mEq/L (98-109); Glucose 168 mg/dL (70-99); Osmolality,Calculated 300 (280-300); Potassium 2.8 mEq/L (3.5-4.5); Sodium 143 mEq/L (136-145); eGFR For African Americans > 60 (> 60); eGFR For Non-African Americans > 60 (> 60)
[2016-09-20] MEDS: Levothyroxine 25 MCG TABLET PO SCH (06:02)
[2016-09-20] MEDS: D5% in 0.9% NACL 1,000 ML IVC SCH ×3 (06:44→23:12)
[2016-09-20] MEDS: Potassium Chloride Elixir 20 MEQ/15 ML UDC PO SCH ×4 (08:33→23:12)
[2016-09-20] MEDS: Aspirin Enteric Coated 81 MG Tablet PO SCH (08:33)
--- NOTE | 2016-09-20 16:37 | Internal Med Progress Note ---
Date of Encounter: 09/20/16 Time of Encounter: 11:15 - Assessment and plan (1) Acute encephalopathy Current Visit: Yes Status: Acute Assessment and plan: Improving probably due to UTI, continue current meds, monitor closely, supportive care (2) UTI (urinary tract infection) Current Visit: Yes Status: Acute Assessment and plan: K.pneumoniae in urine, continue IV Rocephin Qualifiers: Urinary tract infection type: site unspecified Hematuria presence: with hematuria Qualified Code(s): N39.0 - Urinary tract infection, site not specified; R31.9 - Hematuria, unspecified (3) Elevated troponin Current Visit: Yes Status: Acute Assessment and plan: ASA, BB, Statin, cardiology following, negative stress test in 2013 at [facility] (4) Pacemaker Current Visit: Yes Status: Acute Assessment and plan: dual chamber PPM for CHB (5) CAD (coronary artery disease) Current Visit: Yes Status: Acute Assessment and plan: s/p PCI to LAD in 2008 - continue ASA, Statin Qualifiers: Coronary Disease-Associated Artery/Lesion type: [place] artery [place] vs. transplanted heart: [place] heart Associated angina: without angina Qualified Code(s): I25.10 - Atherosclerotic heart disease of [place] coronary artery without angina pectoris - Time Spent With Patient less than 15 minutes - Subjective Interval history: Patient is awake, more responsive today. Does not verbalize well. Does not follow verbal commands. No fever. Tolerating oral diet. Hemodynamically stable. Complains of pain in right knee. No other acute events or complaints. - Constitutional Vitals: Temp Pulse Resp BP Pulse Ox 98.3 F 98 16 162/77 99 09/20/16 16:00 09/20/16 16:00 09/20/16 16:00 09/20/16 16:00 09/20/16 16:00 General appearance: Present: A&O X 1, no acute distress Exam: more responsive today - ENT ENT exam: Present: mucous membranes moist - Neck Neck exam general surgery: Present: supple - Respiratory Respiratory exam: Present: CTAB. Absent: rhonchi, wheezes - Cardiovascular Cardiovascular exam: Present: RRR, +S1, +S2 - GI/Abdominal GI/Abdominal exam: Present: soft. Absent: guarding, tenderness - Extremities Exam Extremities exam: Present: radial pulses palpable and symetrical. Absent: cyanotic, pedal edema Additional comments: mild tenderness over right knee lateral aspect - Neurological Exam Neurological exam: Present: alert, no focal deficits Additional comments: more responsive today, follows verbal commands, able to verbalize, moves extremities Internal Medicine: Result - Labs CBC & Chem 7: 09/20/16 03:33 09/20/16 03:33 Labs: Short CBC 09/20/16 Range/Units 03:33 WBC 10.5 (4.3-11.1) K/mcL Hgb 10.0 L (11.5-15.4) g/dL Hct 32.2 L (35.3-44.9) % Plt Count 351 (140-400) K/mcL Neutrophils # 8.2 (1.6-8.9) K/mcL BMP 09/20/16 03:33 Sodium 143 Potassium 2.8 L Chloride 109 Carbon Dioxide 27 BUN 12 Creatinine 0.79 Glucose 168 H Calcium 7.4 L - ABG Interpretation ABG results: PT/INR, D-dimer PT 15.1 Seconds (9.4-12.1) H 09/18/16 17:59 Consult Discharge Plan - Plan Referrals: Carlos Alberto Nguyễn MD [Primary Care Provider] -
[2016-09-20] MEDS: Acetaminophen 325 MG TABLET PO PRN (22:30)
[2016-09-20] MEDS ORDERED: *HR* OxyCODONE/APAP 5/325 TABLET PO PRN (23:13)
[2016-09-21 05:18] LABS: BUN/Creatinine Ratio 15 (6-26); Blood Urea Nitrogen 11 mg/dL (7-20); Carbon Dioxide 22 mEq/L (19-29); Chloride 110 mEq/L (98-109); Glucose 221 mg/dL (70-99); Osmolality,Calculated 298 (280-300); Potassium 2.8 mEq/L (3.5-4.5); Sodium 141 mEq/L (136-145); eGFR For African Americans > 60 (> 60); eGFR For Non-African Americans > 60 (> 60)
[2016-09-21] MEDS: Levothyroxine 25 MCG TABLET PO SCH (06:03)
[2016-09-21] MEDS: D5% in 0.9% NACL 1,000 ML IVC SCH ×2 (06:03→16:36)
[2016-09-21 08:07] LABS: Magnesium 1.2 mg/dL (1.6-2.6)
[2016-09-21] MEDS: Potassium Chloride Elixir 20 MEQ/15 ML UDC PO SCH (10:10)
[2016-09-21] MEDS: Aspirin Enteric Coated 81 MG Tablet PO SCH (10:12)
[2016-09-21] MEDS ORDERED: Magnesium Sulfate 2 GM in D5% in Water 100 ML IVPB ONE (10:29)
[2016-09-21 10:49] LABS: Hematocrit 26.8 % (35.3-44.9)
[2016-09-21 11:05] LABS: Hemoglobin 8.4 g/dL (11.5-15.4)
[2016-09-21] MEDS ORDERED: Esmolol 100 MG/10 ML VIAL IVP ONE (12:00)
[2016-09-21] MEDS ORDERED: Lidocaine -MPF 2% 5 ML VIAL INFILT ONE (12:00)
[2016-09-21] MEDS ORDERED: *HR* Succinylcholine 200 MG/10 ML VIAL IVP ONE (12:00)
[2016-09-21] MEDS ORDERED: *HR* Etomidate 20 MG/10 ML AMPUL IVP ONE (12:00)
[2016-09-21] MEDS ORDERED: *HR* Phenylephrine 10 MG/ML VIAL IC ONE (12:00)
[2016-09-21] MEDS ORDERED: D5% in 0.9% NACL 1,000 ML IVC SCH (14:40)
[2016-09-21] MEDS ORDERED: D5% in 0.9% NACL 1,000 ML IVC ONE (14:42)
[2016-09-21] MEDS ORDERED: Pantoprazole 40 MG in 0.9 % Sodium Chloride Mini Bag 100 ML IVC SCH (15:15)
[2016-09-21 15:30] LABS: Hemoglobin 6.9 g/dL (11.5-15.4)
--- NOTE | 2016-09-21 15:42 | Internal Med Progress Note ---
Date of Encounter: 09/21/16 Time of Encounter: 09:00 - Assessment and plan (1) Acute blood loss anemia Current Visit: Yes Status: Acute Assessment and plan: new development Severe hematemesis with melena/BRBPR ASA discontinued secondary to GI bleed, hemodynamically unstable Transfuse 4 units PRBC stat, PPI drip, GI consult - EGD today - discussed with Dr Kovacs Transfer to Daughter explained about critical condition and guarded prognosis. Undertood and agreed. (2) GI bleeding Current Visit: Yes Status: Acute Assessment and plan: sudden onset, causing severe ABLA 4 units PRBC stat, EGD today by GI - discussed with Dr Kovacs IV fluids, supportive care Qualifiers: GI bleed type/associated pathology: gastrointestinal hemorrhage with hematemesis Qualified Code(s): K92.0 - Hematemesis (3) Acute encephalopathy Current Visit: Yes Status: Acute Assessment and plan: probably due to ABLA, GI bleed and UTI continue current meds, monitor closely, supportive care (4) UTI (urinary tract infection) Current Visit: Yes Status: Acute Assessment and plan: K.pneumoniae in urine, continue IV Rocephin Qualifiers: Urinary tract infection type: site unspecified Hematuria presence: with hematuria Qualified Code(s): N39.0 - Urinary tract infection, site not specified; R31.9 - Hematuria, unspecified (5) Elevated troponin Current Visit: Yes Status: Acute Assessment and plan: ASA, BB, Statin, cardiology following, negative stress test in 2013 at [facility] (6) Pacemaker Current Visit: Yes Status: Acute Assessment and plan: dual chamber PPM for CHB (7) CAD (coronary artery disease) Current Visit: Yes Status: Acute Assessment and plan: s/p PCI to LAD in 2008 - continue Statin hold ASA due to GI bleed Qualifiers: Coronary Disease-Associated Artery/Lesion type: jackson artery [place] vs. transplanted heart: jackson heart Associated angina: without angina Qualified Code(s): I25.10 - Atherosclerotic heart disease of jackson coronary artery without angina pectoris - Time Spent With Patient 25 - 35 minutes - Subjective Interval history: Examine this morning and at around 2:30 pm today. Patient is drowsy. Does not verbalize well. Does not follow verbal commands. No fever. Hemodynamically unstable. She has hematemesis and BRBPR/melena. She needs 4 units PRBC stat. Transferring to . No other acute events or complaints. Discussed with GI specilaist. Needs stabilization and EGD. Daughter explained about critical condition and guarded prognosis. She understood and agreed. - Constitutional Vitals: Temp Pulse Resp BP Pulse Ox 97.6 F 90 14 87/60 96 09/21/16 14:32 09/21/16 14:32 09/21/16 14:32 09/21/16 14:32 09/21/16 14:32 General appearance: Present: A&O X 1, no acute distress. Absent: answers questions appropriately Exam: drowsy, opens eyes when name is called, pallor+ - ENT ENT exam: Present: mucous membranes dry - Neck Neck exam general surgery: Present: supple - Respiratory Respiratory exam: Present: CTAB. Absent: rhonchi, wheezes - Cardiovascular Cardiovascular exam: Present: +S1, +S2, tachycardia - GI/Abdominal GI/Abdominal exam: Present: soft. Absent: guarding, tenderness - Extremities Exam Extremities exam: Present: radial pulses palpable and symetrical. Absent: cyanotic, pedal edema - Neurological Exam Additional comments: drowsy, opens eyes to verbal commands, able to move extremities, unable to fully assess neuro exam Internal Medicine: Result - Labs CBC & Chem 7: 09/21/16 15:20 09/21/16 04:29 Labs: Short CBC 09/21/16 09/21/16 Range/Units 10:40 15:20 Hgb 8.4 L D 6.9 L D (11.5-15.4) g/dL Hct 26.8 L 22.0 L (35.3-44.9) % BMP 09/21/16 04:29 Sodium 141 Potassium 2.8 L Chloride 110 H Carbon Dioxide 22 BUN 11 Creatinine 0.75 Glucose 221 H Calcium 7.0 L - ABG Interpretation ABG results: PT/INR, D-dimer PT 15.1 Seconds (9.4-12.1) H 09/18/16 17:59 Consult Discharge Plan - Plan Referrals: Carlos Alberto Nguyễn MD [Primary Care Provider] -
[2016-09-21] MEDS ORDERED: 0.9 % Sodium Chloride 1,000 ML IVC SCH ×2 (16:00→16:19)
[2016-09-21] MEDS ORDERED: Ondansetron 4 MG/2 ML VIAL IVP PRN (16:19)
[2016-09-21] MEDS ORDERED: Acetaminophen 325 MG TABLET PO PRN (16:19)
[2016-09-21] MEDS ORDERED: *HR* OxyCODONE/APAP 5/325 TABLET PO PRN (16:19)
--- NOTE | 2016-09-21 16:35 | Anesthesia Evaluation PreOp ---
Date of Encounter: 09/21/16 Time of Encounter: 16:33 - Past History Planned Operation: emergent egd Cardiac History: HTN, Cardiac Stent (lad), Pacemaker/ICD (dual chamber for complete hb), Other (cad, c 2008 PCI to LAD. 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 (pt's family members deny hx), Other (CT no acute abnl) Other Medical History: Thyroid, GERD Anesthesia History: No Prior Anesthetic Complications, Past Anesthesia Alcohol Use: none Drug use: none Medications and Allergies Ascorbate Calcium [Vitamin C] 500 mg PO BID 08/12/16 [History] Aspirin [Lo-Dose Aspirin EC] 81 mg PO DAILY 08/12/16 [History] Atorvastatin [Lipitor] 40 mg PO HS 08/12/16 [History] BuPROPion SR (12 HR) [Wellbutrin SR] 150 mg PO BID 08/12/16 [History] Calcium Carbonate [Calcium] 600 mg PO BID 08/12/16 [History] Cholecalciferol (Vitamin D3) [Vitamin D3] 2,000 unit PO DAILY 08/12/16 [History] Cilostazol 50 mg PO BID 08/12/16 [History] CloNIDine HCl [Kapvay] 0.1 mg PO BID 08/12/16 [History] DiphenhydraMINE [Benadryl] 25 mg PO BID PRN 08/12/16 [History] Docusate [Colace] 100 mg PO BID 08/12/16 [History] Escitalopram [Lexapro] 10 mg PO HS 08/12/16 [History] Estrogens, Conjugated [Premarin Cream] 1 appl VG MOWEFR 08/12/16 [History] Fexofenadine HCl [Allergy Relief] 180 mg PO DAILY 08/12/16 [History] Gabapentin [Neurontin] 300 mg PO TID 08/12/16 [History] Levothyroxine [Synthroid] 25 mcg PO DAILY 08/12/16 [History] Magnesium Hydroxide [Milk of Magnesia] 30 ml PO DAILY PRN 08/12/16 [History] Melatonin/Pyridoxine HCl (B6) [Melatonin 3 mg Tablet] 3 mg PO HS 08/12/16 [ History] Metoprolol [Lopressor] 25 mg PO BID 08/12/16 [History] Oxybutynin Chloride [Ditropan Xl] 10 mg PO DAILY 08/12/16 [History] Oxycodone HCl/Acetaminophen [Percocet 5-325 mg Tablet] 1 - 2 tab PO Q4H PRN [History] Pentoxifylline [TRENtal] 400 mg PO BID 08/12/16 [History] Polyethylene Glycol 3350 [Gavilax] 17 gm PO DAILY 08/12/16 [History] Polyvinyl Alcohol/Povidone/Pf [Refresh Classic Eye Drops] 1 drop OP DAILY [History] Ranitidine HCl [Acid Tier Truck Driver] 75 mg PO BID 08/12/16 [History] Sennosides [Senna] 8.6 mg PO BID 08/12/16 [History] Zinc Acetate [Galzin] 50 mg PO DAILY 08/12/16 [History] amLODIPine [Norvasc] 10 mg PO DAILY 08/12/16 [History] traZODone [TraZODone] 50 mg PO HS 08/12/16 [History] Multivitamin,Therapeutic [Thera-Tabs] 1 each PO DAILY #30 tablet 08/14/16 [Rx] Potassium Chloride 20 meq PO DAILY 09/19/16 [History] Allergies Penicillins Allergy (Unknown, Verified 09/18/16 02:36) See Comments Unknown reaction- Listed on ECF med list- Sulfa (Sulfonamide Antibiotics) Allergy (Unknown, Verified 09/18/16 02:36) See Comments Unknown reaction- Listed on ECF med list- tetanus toxoid, adsorbed Allergy (Unknown, Verified 09/18/16 02:36) See Comments Unknown reaction- Listed on ECF med list- - Meds/Allergy Pre-op Review Medications Reviewed: Yes Allergies Reviewed: Yes Beta Blockers on Current Med List: No Anesthesia Results - Labs 09/21/16 15:20 09/21/16 04:29 - Imaging 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) Anesthesia Exam O2 Sat O2 Sat by Pulse Oximetry 100 O2 Sat by Pulse Oximetry 96 O2 Sat by Pulse Oximetry 98 O2 Sat by Pulse Oximetry 100 Vital Signs Temp Pulse Resp BP Pulse Ox 98.2 F 93 20 166/105 99 09/18/16 02:15 09/18/16 02:15 09/18/16 02:15 09/18/16 02:15 09/18/16 02:15 Vital Signs/O2 Sat/Glucose, Most Current Temp Pulse Resp BP Pulse Ox 09/21/16 16:22 98.5 F 77 14 79/46 100 09/21/16 14:32 97.6 F 90 14 87/60 96 Height: 1.73 Weight: 77 NPO (# of Hours): >8 - HEENT Pupil (Motor): Pupils equal, EOMI Mallampati: II Teeth: Poor dentition Oral Opening: Greater than 3 - 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
[2016-09-21] MEDS ORDERED: *HR* FentaNYL (PF) 100 MCG/2 ML VIAL ONE (17:07)
--- NOTE | 2016-09-21 17:14 | Event Note ---
Date of Encounter: 09/21/16 Time of Encounter: 15:00 Pt with hematemesis and also melena with drop in hemoglobin. Does has UTI with encephalopathy. Rec: PPI infusion follow H&H and transfuse as needed EGD today. Full consult to follow
--- NOTE | 2016-09-21 18:57 | Event Note ---
Date of Encounter: 09/21/16 Time of Encounter: 18:49 Patient examined in the ICU. Intubated and mechanically ventilated for airway protection. Hemodynamically unstable. IV fluids, may need Pressors if MAP < 65, may need central line BP: 110/60, HR: 80, O2: 100% S/p EGD - done by Dr Kovacs. Large friable ulcer and clots seen on EGD. Transfusing 4 units PRBC Continue Protonix drip. Dr Kovacs has discussed with Dr De La Rosa for surgical evaluation. Consult Pulmonology/ critical care Family explained about critical condition, guarded prognosis and plan of care. Understood and agreed.
[2016-09-21] MEDS ORDERED: 0.9 % Sodium Chloride 250 ML ONE (18:58)
[2016-09-21 19:59] LABS: Hematocrit 26.5 % (35.3-44.9); Hemoglobin 8.1 g/dL (11.5-15.4); Mean Corpuscular HGB Conc 30.6 g/dL (31.6-35.5); Mean Corpuscular Hemoglobin 25.5 pg (28.0-33.3); Mean Corpuscular Volume 83.3 fL (83.0-100.0); Mean Platelet Volume 11.7 fL (9.4-12.4); Platelet Count 321 K/mcL (140-400); Red Blood Count 3.18 M/mcL (3.82-4.97); Red Cell Distribution Width 19.7 % (11.5-14.5)
[2016-09-21 20:13] LABS: BUN/Creatinine Ratio 13 (6-26); Blood Urea Nitrogen 13 mg/dL (7-20); Calcium 6.4 mg/dL (8.6-10.8); Carbon Dioxide 20 mEq/L (19-29); Chloride 113 mEq/L (98-109); Glucose 251 mg/dL (70-99); Osmolality,Calculated 299 (280-300); Sodium 140 mEq/L (136-145); eGFR For African Americans > 60 (> 60); eGFR For Non-African Americans 53 (> 60)
[2016-09-21] MEDS: Chlorhexidine Rinse 15 ML MOUTHWASH MM SCH (20:14)
[2016-09-21] MEDS: Lacri-Lube 3.5 GM TUBE BOTH EYES SCH (20:14)
[2016-09-21 20:21] LABS: CK-BB (CK isoenzymes) 0 % (0-0); CK-MB (CK isoenzymes) 1 % (0-4); CK-MM (CK-isoenzymes) 99 % (96-100)
[2016-09-21 20:26] LABS: Potassium 4.5 mEq/L (3.5-4.5)
[2016-09-21] MEDS ORDERED: Potassium Chloride Elixir 20 MEQ/15 ML UDC PO SCH (21:00)
[2016-09-21] MEDS: Pantoprazole 40 MG in 0.9 % Sodium Chloride Mini Bag 100 ML IVC SCH (21:52)
[2016-09-21] MEDS: 0.9 % Sodium Chloride 1,000 ML IVC SCH (23:23)
[2016-09-22] MEDS: D5% in 0.9% NACL 1,000 ML IVC SCH (00:09)
[2016-09-22] MEDS ORDERED: *HR* Dextrose 50 % in Water (Syg) 50 ML SYRINGE IVP PRN (00:44)
[2016-09-22] MEDS ORDERED: Dextrose Gel 15 GM PO PRN ×2 (00:44)
[2016-09-22] MEDS ORDERED: D5% in Water 1,000 ML IVC PRN (00:44)
[2016-09-22] MEDS ORDERED: Insulin LISPRO 300 UNITS/3 ML VIAL SQ ONE (01:01)
[2016-09-22] MEDS: Insulin LISPRO 300 UNITS/3 ML VIAL SQ SCH ×4 (01:03→18:11)
[2016-09-22] MEDS ORDERED: *HR* Midazolam HCl 2 MG/2 ML VIAL IVP PRN (02:03)
[2016-09-22] MEDS ORDERED: *HR* Midazolam HCl 2 MG/2 ML VIAL ONE (02:10)
[2016-09-22] MEDS: Pantoprazole 40 MG in 0.9 % Sodium Chloride Mini Bag 100 ML IVC SCH ×4 (02:44→21:55)
[2016-09-22 06:09] LABS: Basophils % 0.1 %; Eosinophils % 0.1 %; Hematocrit 41.9 % (35.3-44.9); Immature Granulocytes % 0.7 % (0-4); Lymphocytes # 2.9 K/mcL (0.6-4.6); Lymphocytes % 16.1 %; Mean Corpuscular HGB Conc 32.2 g/dL (31.6-35.5); Mean Corpuscular Hemoglobin 26.8 pg (28.0-33.3); Mean Corpuscular Volume 83.1 fL (83.0-100.0); Mean Platelet Volume 11.7 fL (9.4-12.4); Monocytes # 1.1 K/mcL (0.0-1.3); Monocytes % 6.1 %; Neutrophils # 13.6 K/mcL (1.6-8.9); Nucleated Red Blood Cells 0.2 /100 WBC (0); Platelet Count 300 K/mcL (140-400); Red Blood Count 5.04 M/mcL (3.82-4.97); Red Cell Distribution Width 18.6 % (11.5-14.5); Segmented Neutrophils % 76.9 %
[2016-09-22 06:10] LABS: Hemoglobin 13.5 g/dL (11.5-15.4)
[2016-09-22 06:23] LABS: Calcium 6.8 mg/dL (8.6-10.8); Magnesium 1.7 mg/dL (1.6-2.6); Potassium 4.6 mEq/L (3.5-4.5)
[2016-09-22] MEDS ORDERED: Levothyroxine 25 MCG TABLET PO SCH (06:30)
--- NOTE | 2016-09-22 06:52 | General Surgery Consult Note ---
Date of Encounter: 09/21/16 Time of Encounter: 19:00 Assessment and Plan (1) GI bleeding Current Visit: Yes Status: Acute Surgical approach for gastric remnant test no bleeding at the gastrojejunostomy is extremely difficult. In this patient that is clinically unstable surgical exploration would have a very high complication rate and high mortality rate. I favor medical management and serial transfusion if necessary. Qualifiers: GI bleed type/associated pathology: gastrointestinal hemorrhage with hematemesis Qualified Code(s): K92.0 - Hematemesis History of Present Illness Consult date: 09/21/16 History of present illness: I was asked to see the patient by Dr. Kovacs during upper endoscopy. The patient is suffering from upper GI bleed. There is intact clocked across a small gastric pouch. 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 The gastrojejunostomy demonstrates a large ulcer. This does not appear to be active bleeding but the presence of adherent clot suggests high potential for rebleeding. The patient is currently stable however she is receiving intensive therapy in the intensive care unit for mental status changes Past Med Surg Social Fam HX - Past Medical History Medical history: arthritis, coronary artery disease, diabetes, hypertension Psychiatric history: no psych history - Past Surgical History Surgical History: angioplasty/stent, pacemaker/AICD, other (Eris-en-Y gastric bypass. She is also had exploratory laparotomy and lysis of adhesions with detorsion of volvulus. This is done at [facility] last year.) - Social History Smoking Status: Former smoker Smokeless Tobacco Status: No Alcohol use: none Drug use: none - Family History Father History Unknown: Yes Adopted: No Family Member Ethnicity: Non- Living Status: Hx Family Cardiac Disorders: Yes Hx Family Respiratory Disorders: No Hx Family Cancer: No Hx Family GI Disorders: No Hx Family Endocrine Disorder: Yes Hx Family Neuromuscular Disorders: No Hx Family Neurologic Disorders: No Hx Family HEENT Disorders: No Hx Family Autoimmune Disorders: No Medications and Allergies Ascorbate Calcium [Vitamin C] 500 mg PO BID 08/12/16 [History] Aspirin [Lo-Dose Aspirin EC] 81 mg PO DAILY 08/12/16 [History] Atorvastatin [Lipitor] 40 mg PO HS 08/12/16 [History] BuPROPion SR (12 HR) [Wellbutrin SR] 150 mg PO BID 08/12/16 [History] Calcium Carbonate [Calcium] 600 mg PO BID 08/12/16 [History] Cholecalciferol (Vitamin D3) [Vitamin D3] 2,000 unit PO DAILY 08/12/16 [History] Cilostazol 50 mg PO BID 08/12/16 [History] CloNIDine HCl [Kapvay] 0.1 mg PO BID 08/12/16 [History] DiphenhydraMINE [Benadryl] 25 mg PO BID PRN 08/12/16 [History] Docusate [Colace] 100 mg PO BID 08/12/16 [History] Escitalopram [Lexapro] 10 mg PO HS 08/12/16 [History] Estrogens, Conjugated [Premarin Cream] 1 appl VG MOWEFR 08/12/16 [History] Fexofenadine HCl [Allergy Relief] 180 mg PO DAILY 08/12/16 [History] Gabapentin [Neurontin] 300 mg PO TID 08/12/16 [History] Levothyroxine [Synthroid] 25 mcg PO DAILY 08/12/16 [History] Magnesium Hydroxide [Milk of Magnesia] 30 ml PO DAILY PRN 08/12/16 [History] Melatonin/Pyridoxine HCl (B6) [Melatonin 3 mg Tablet] 3 mg PO HS 08/12/16 [ History] Metoprolol [Lopressor] 25 mg PO BID 08/12/16 [History] Oxybutynin Chloride [Ditropan Xl] 10 mg PO DAILY 08/12/16 [History] Oxycodone HCl/Acetaminophen [Percocet 5-325 mg Tablet] 1 - 2 tab PO Q4H PRN [History] Pentoxifylline [TRENtal] 400 mg PO BID 08/12/16 [History] Polyethylene Glycol 3350 [Gavilax] 17 gm PO DAILY 08/12/16 [History] Polyvinyl Alcohol/Povidone/Pf [Refresh Classic Eye Drops] 1 drop OP DAILY [History] Ranitidine HCl [Acid Grain Shipper] 75 mg PO BID 08/12/16 [History] Sennosides [Senna] 8.6 mg PO BID 08/12/16 [History] Zinc Acetate [Galzin] 50 mg PO DAILY 08/12/16 [History] amLODIPine [Norvasc] 10 mg PO DAILY 08/12/16 [History] traZODone [TraZODone] 50 mg PO HS 08/12/16 [History] Multivitamin,Therapeutic [Thera-Tabs] 1 each PO DAILY #30 tablet 08/14/16 [Rx] Potassium Chloride 20 meq PO DAILY 09/19/16 [History] Allergies Penicillins Allergy (Unknown, Verified 09/18/16 02:36) See Comments Unknown reaction- Listed on ECF med list- Sulfa (Sulfonamide Antibiotics) Allergy (Unknown, Verified 09/18/16 02:36) See Comments Unknown reaction- Listed on ECF med list- tetanus toxoid, adsorbed Allergy (Unknown, Verified 09/18/16 02:36) See Comments Unknown reaction- Listed on ECF med list- Review of Systems All systems PM: A 10-system review of systems was performed and is negative for pertinent findings except as documented above in the HPI. General Surgery Exam Initial Vital Signs Temp Pulse Resp BP Pulse Ox 98.2 F 93 20 166/105 99 09/18/16 02:15 09/18/16 02:15 09/18/16 02:15 09/18/16 02:15 09/18/16 02:15 - General physical appearance chronically ill, obese (The patient is examined while sedated in the endoscopy.) Exam Initial Vital Signs Temp Pulse Resp BP Pulse Ox 98.2 F 93 20 166/105 99 09/18/16 02:15 09/18/16 02:15 09/18/16 02:15 09/18/16 02:15 09/18/16 02:15 Results - Labs 09/22/16 05:57 09/22/16 05:57 Abnormal lab results WBC 17.7 K/mcL (4.3-11.1) H 09/22/16 05:57 RBC 5.04 M/mcL (3.82-4.97) H 09/22/16 05:57 MCH 26.8 pg (28.0-33.3) L 09/22/16 05:57 RDW 18.6 % (11.5-14.5) H 09/22/16 05:57 Neutrophils # 13.6 K/mcL (1.6-8.9) H 09/22/16 05:57 Nucleated RBCs/100 WBC 0.2 /100 WBC (0) H 09/22/16 05:57 PT 15.1 Seconds (9.4-12.1) H 09/18/16 17:59 Potassium 4.6 mEq/L (3.5-4.5) H 09/22/16 05:57 Chloride 114 mEq/L (98-109) H 09/22/16 05:57 Creatinine 1.33 mg/dL (0.57-1.11) H 09/22/16 05:57 Est GFR ( Amer) 47 (> 60) L 09/22/16 05:57 Est GFR (Non-Af Amer) 39 (> 60) L 09/22/16 05:57 Glucose 154 mg/dL (70-99) H 09/22/16 05:57 POC Glucose 246 (58-89) H 09/21/16 23:55 Calculated Osmolality 301 (280-300) H 09/22/16 05:57 Calcium 6.8 mg/dL (8.6-10.8) L 09/22/16 05:57 Creatine Kinase 171 Units/L (29-168) H 09/18/16 17:59 Troponin I 0.21 ng/mL (0-0.03) H* 09/18/16 17:59 Urine Clarity Cloudy (Clear) A 09/18/16 03:20 Urine Ketones 40 mg/dL (Negative) H 09/18/16 03:20 Urine Blood Small (Negative) H 09/18/16 03:20 Urine Nitrite Positive (Negative) A 09/18/16 03:20 Ur Leukocyte Esterase Large (Negative) H 09/18/16 03:20 Urine Microscopic RBC 5-15 per hpf (0-3) H 09/18/16 03:20 Urine Microscopic WBC TNTC per hpf (0-3) H 09/18/16 03:20 Ur Squamous Epith Cells Many per lpf (None-Few) H 09/18/16 03:20 Urine Bacteria Many per hpf (None-Few) H 09/18/16 03:20 Hyaline Casts Moderate per lpf (None-Few) H 09/18/16 03:20 Urine Yeast Few per hpf (None Seen) H 09/18/16 03:20 Ur Culture Indicated? YES (NO) A 09/18/16 03:20 Diabetes panel 09/21/16 09/21/16 09/22/16 Range/Units 04:29 19:50 05:57 Sodium 141 140 143 (136-145) mEq/L Potassium 2.8 L 4.5 D 4.6 H (3.5-4.5) mEq/L Chloride 110 H 113 H 114 H (98-109) mEq/L Carbon Dioxide 22 20 21 (19-29) mEq/L BUN 11 13 17 (7-20) mg/dL Creatinine 0.75 1.02 1.33 H (0.57-1.11) mg/dL Glucose 221 H 251 H 154 H (70-99) mg/dL Calcium 7.0 L 6.4 L 6.8 L (8.6-10.8) mg/dL Calcium panel 09/21/16 09/21/16 09/22/16 Range/Units 04:29 19:50 05:57 Calcium 7.0 L 6.4 L 6.8 L (8.6-10.8) mg/dL Pituitary panel 09/21/16 09/21/16 09/22/16 Range/Units 04:29 19:50 05:57 Sodium 141 140 143 (136-145) mEq/L Potassium 2.8 L 4.5 D 4.6 H (3.5-4.5) mEq/L Chloride 110 H 113 H 114 H (98-109) mEq/L Carbon Dioxide 22 20 21 (19-29) mEq/L BUN 11 13 17 (7-20) mg/dL Creatinine 0.75 1.02 1.33 H (0.57-1.11) mg/dL Glucose 221 H 251 H 154 H (70-99) mg/dL Calcium 7.0 L 6.4 L 6.8 L (8.6-10.8) mg/dL Adrenal panel 09/21/16 09/21/16 09/22/16 Range/Units 04:29 19:50 05:57 Sodium 141 140 143 (136-145) mEq/L Potassium 2.8 L 4.5 D 4.6 H (3.5-4.5) mEq/L Chloride 110 H 113 H 114 H (98-109) mEq/L Carbon Dioxide 22 20 21 (19-29) mEq/L BUN 11 13 17 (7-20) mg/dL Creatinine 0.75 1.02 1.33 H (0.57-1.11) mg/dL Glucose 221 H 251 H 154 H (70-99) mg/dL Calcium 7.0 L 6.4 L 6.8 L (8.6-10.8) mg/dL All other labs normal. Consult Discharge Plan - Plan Referrals: Carlos Alberto Nguyễn MD [Primary Care Provider] -
[2016-09-22] MEDS ORDERED: FentaNYL (PF) 1,000 MCG in 0.9 % Sodium Chloride 80 ML IVC SCH (07:30)
--- NOTE | 2016-09-22 07:39 | Pulmonology Consult Note ---
<Cindy Admas - Last Filed: 09/22/16 14:09> Date of Encounter: 09/22/16 Time of Encounter: 11:47 Assessment and Plan (1) Gastric ulcer Current Visit: Yes Status: Acute Neuropsych: Precedex and fentanyl were started this morning to assist with patient's sedations last agitation due to mechanical ventilation. Plan for extubation later today. Acute encephalopathy due to UTI; patient also has underlying dementia. Pulm: Currently on the ventilator on CPAP mode. Plan for extubation. Cardio: -- FEN-GI: Protonix gtt for gastric ulcer. Patient to remain nothing by mouth for at least 24 hours. No NG or OG tubes. Renal: Hypovolemic prerenal MALGORZATA due to acute blood loss anemia, continue to monitor ID: Check blood cultures, repeat urine cultures. Antibiotics changed to ceftazidime (day 1). Previous urine culture shows sensitivity of all 3 bacteria to this antibiotic. Total antibiotic day 4. Heme/Onc: DVT prophylaxis with SCDs Endocrine: Check cortisol Integ/MSK: ICU skin care protocol Qualifiers: Gastric ulcer chronicity: acute Gastric ulcer complication status: with hemorrhage Qualified Code(s): K25.0 - Acute gastric ulcer with hemorrhage (2) Acute encephalopathy Current Visit: Yes Status: Acute (3) Acute blood loss anemia Current Visit: Yes Status: Acute (4) UTI (urinary tract infection) Current Visit: Yes Status: Acute Qualifiers: Urinary tract infection type: site unspecified Hematuria presence: with hematuria Qualified Code(s): N39.0 - Urinary tract infection, site not specified; R31.9 - Hematuria, unspecified (5) Leukocytosis Current Visit: Yes Status: Acute Qualifiers: Leukocytosis type: unspecified Qualified Code(s): D72.829 - Elevated white blood cell count, unspecified (6) CAD (coronary artery disease) Current Visit: Yes Status: Chronic Qualifiers: Coronary Disease-Associated Artery/Lesion type: tejon artery Ruby vs. transplanted heart: tejon heart Associated angina: without angina Qualified Code(s): I25.10 - Atherosclerotic heart disease of tejon coronary artery without angina pectoris History of Present Illness Consult date: 09/22/16 Requesting physician: Sekou Key Reason for consult: other (intubation) Chief complaint: GI bleed, UTI, acute encephalopathy History of present illness: Ms. Reis is a 75-year-old female admitted for acute encephalopathy due to urinary tract infection. On hospital day 4 she developed hematemesis and melena /bright red blood per rectum. She was transfused 4 units and underwent EGD which showed a very large, friable gastrojejunal ulceration. She was subsequently intubated. She has been on CPAP mode this morning and doing well from ventilation standpoint. Past Med Surg Social Fam HX - Past Medical History Medical history: arthritis, coronary artery disease, diabetes, hypertension Psychiatric history: no psych history - Past Surgical History Surgical History: angioplasty/stent, pacemaker/AICD, other (Eris-en-Y gastric bypass. She is also had exploratory laparotomy and lysis of adhesions with detorsion of volvulus. This is done at [facility] last year.) - Social History Smoking Status: Former smoker Smokeless Tobacco Status: No Alcohol use: none Drug use: none - Family History Father History Unknown: Yes Adopted: No Family Member Ethnicity: Non- Living Status: Hx Family Cardiac Disorders: Yes Hx Family Respiratory Disorders: No Hx Family Cancer: No Hx Family GI Disorders: No Hx Family Endocrine Disorder: Yes Hx Family Neuromuscular Disorders: No Hx Family Neurologic Disorders: No Hx Family HEENT Disorders: No Hx Family Autoimmune Disorders: No Medications and Allergies Ascorbate Calcium [Vitamin C] 500 mg PO BID 08/12/16 [History] Aspirin [Lo-Dose Aspirin EC] 81 mg PO DAILY 08/12/16 [History] Atorvastatin [Lipitor] 40 mg PO HS 08/12/16 [History] BuPROPion SR (12 HR) [Wellbutrin SR] 150 mg PO BID 08/12/16 [History] Calcium Carbonate [Calcium] 600 mg PO BID 08/12/16 [History] Cholecalciferol (Vitamin D3) [Vitamin D3] 2,000 unit PO DAILY 08/12/16 [History] Cilostazol 50 mg PO BID 08/12/16 [History] CloNIDine HCl [Kapvay] 0.1 mg PO BID 08/12/16 [History] DiphenhydraMINE [Benadryl] 25 mg PO BID PRN 08/12/16 [History] Docusate [Colace] 100 mg PO BID 08/12/16 [History] Escitalopram [Lexapro] 10 mg PO HS 08/12/16 [History] Estrogens, Conjugated [Premarin Cream] 1 appl VG [id number] 08/12/16 [History] Fexofenadine HCl [Allergy Relief] 180 mg PO DAILY 08/12/16 [History] Gabapentin [Neurontin] 300 mg PO TID 08/12/16 [History] Levothyroxine [Synthroid] 25 mcg PO DAILY 08/12/16 [History] Magnesium Hydroxide [Milk of Magnesia] 30 ml PO DAILY PRN 08/12/16 [History] Melatonin/Pyridoxine HCl (B6) [Melatonin 3 mg Tablet] 3 mg PO HS 08/12/16 [ History] Metoprolol [Lopressor] 25 mg PO BID 08/12/16 [History] Oxybutynin Chloride [Ditropan Xl] 10 mg PO DAILY 08/12/16 [History] Oxycodone HCl/Acetaminophen [Percocet 5-325 mg Tablet] 1 - 2 tab PO Q4H PRN [History] Pentoxifylline [TRENtal] 400 mg PO BID 08/12/16 [History] Polyethylene Glycol 3350 [Gavilax] 17 gm PO DAILY 08/12/16 [History] Polyvinyl Alcohol/Povidone/Pf [Refresh Classic Eye Drops] 1 drop OP DAILY [History] Ranitidine HCl [Acid Director Call Center Sales] 75 mg PO BID 08/12/16 [History] Sennosides [Senna] 8.6 mg PO BID 08/12/16 [History] Zinc Acetate [Galzin] 50 mg PO DAILY 08/12/16 [History] amLODIPine [Norvasc] 10 mg PO DAILY 08/12/16 [History] traZODone [TraZODone] 50 mg PO HS 08/12/16 [History] Multivitamin,Therapeutic [Thera-Tabs] 1 each PO DAILY #30 tablet 08/14/16 [Rx] Potassium Chloride 20 meq PO DAILY 09/19/16 [History] Allergies Penicillins Allergy (Unknown, Verified 09/18/16 02:36) See Comments Unknown reaction- Listed on ECF med list- Sulfa (Sulfonamide Antibiotics) Allergy (Unknown, Verified 09/18/16 02:36) See Comments Unknown reaction- Listed on ECF med list- tetanus toxoid, adsorbed Allergy (Unknown, Verified 09/18/16 02:36) See Comments Unknown reaction- Listed on ECF med list- ROS unobtainable: due to endotracheal tube All Systems: A 10-system review of systems was performed and is negative for pertinent findings except as documented above in the HPI. Physical Examination Vital Signs: Vital Signs, Last 4 Hours Temp Pulse Resp BP Pulse Ox 09/22/16 07:00 100 14 106/74 100 09/22/16 06:21 15 100 09/22/16 06:19 100 19 127/88 100 09/22/16 05:27 112 24 151/95 100 09/22/16 05:17 98.1 F 112 24 151/95 100 09/22/16 04:51 97.5 F L 09/22/16 04:00 107 18 157/89 100 09/22/16 03:56 18 100 General appearance: agitated Eyes: nonicteric ENT: oropharynx moist Neck: supple Effort: normal Inspection: normal Auscultation: bilateral: clear Cardiovascular: regular rate and rhythm Gastrointestinal: normoactive bowel sounds, soft, non-tender Integumentary: other (Evidence of peripheral vascular and peripheral arterial disease, scabs along bilateral calves, eschar on dorsal aspect of right second and third toe, scab on dorsal aspect of left second toe) Extremities: other (Evidence of peripheral vascular peripheral arterial disease , feet were cool to the touch but pink, no palpable pulses) Musculoskeletal: no deformities, other (Moving all 4 extremities, moving against restraints and lifting head and neck off bed) other (Agitated) Ventilator Settings Ventilator Settings: Ventilator Settings, Last 8 Hours Ventilator Mode CPAP Ventilator Mode A/C Ventilator Mode A/C Ventilator Mode A/C Ventilator Mode A/C Ventilator Mode A/C Ventilator Mode A/C Ventilator Mode A/C Ventilator Mode A/C Ventilator Mode A/C Ventilator Mode A/C Ventilator Tidal Volume 500 Setting Ventilator Tidal Volume 500 Setting Ventilator Tidal Volume 500 Setting Ventilator Tidal Volume 500 Setting Ventilator Tidal Volume 500 Setting Ventilator Tidal Volume 500 Setting Ventilator Tidal Volume 500 Setting Ventilator Tidal Volume 500 Setting Ventilator Tidal Volume 500 Setting Ventilator Tidal Volume 500 Setting Ventilator Tidal Volume 500 Setting Ventilator Respiratory Rate 12 Setting Ventilator Respiratory Rate 12 Setting Ventilator Respiratory Rate 12 Setting Ventilator Respiratory Rate 12 Setting Ventilator Respiratory Rate 12 Setting Ventilator Respiratory Rate 12 Setting Ventilator Respiratory Rate 12 Setting Ventilator Respiratory Rate 12 Setting Ventilator Respiratory Rate 12 Setting Ventilator Respiratory Rate 12 Setting Ventilator Respiratory Rate 12 Setting Actual Respiratory Rate 15 Actual Respiratory Rate 18 Actual Respiratory Rate 12 Actual Respiratory Rate 13 Positive End Expiratory 5 Pressure Positive End Expiratory 5 Pressure Positive End Expiratory 5 Pressure Positive End Expiratory 5 Pressure Positive End Expiratory 5 Pressure Positive End Expiratory 5 Pressure Positive End Expiratory 5 Pressure Positive End Expiratory 5 Pressure Positive End Expiratory 5 Pressure Positive End Expiratory 5 Pressure Positive End Expiratory 5 Pressure Peak Inspiratory Airway 15 Pressure Peak Inspiratory Airway 21 Pressure Peak Inspiratory Airway 22 Pressure Peak Inspiratory Airway 22 Pressure Results - Laboratory Findings CBC and BMP: 09/22/16 05:57 09/22/16 05:57 PT/INR, D-dimer PT 15.1 Seconds (9.4-12.1) H 09/18/16 17:59 Abnormal lab findings: Abnormal lab results WBC 17.7 K/mcL (4.3-11.1) H 09/22/16 05:57 RBC 5.04 M/mcL (3.82-4.97) H 09/22/16 05:57 MCH 26.8 pg (28.0-33.3) L 09/22/16 05:57 RDW 18.6 % (11.5-14.5) H 09/22/16 05:57 Neutrophils # 13.6 K/mcL (1.6-8.9) H 09/22/16 05:57 Nucleated RBCs/100 WBC 0.2 /100 WBC (0) H 09/22/16 05:57 PT 15.1 Seconds (9.4-12.1) H 09/18/16 17:59 Potassium 4.6 mEq/L (3.5-4.5) H 09/22/16 05:57 Chloride 114 mEq/L (98-109) H 09/22/16 05:57 Creatinine 1.33 mg/dL (0.57-1.11) H 09/22/16 05:57 Est GFR ( Amer) 47 (> 60) L 09/22/16 05:57 Est GFR (Non-Af Amer) 39 (> 60) L 09/22/16 05:57 Glucose 154 mg/dL (70-99) H 09/22/16 05:57 POC Glucose 246 (58-89) H 09/21/16 23:55 Calculated Osmolality 301 (280-300) H 09/22/16 05:57 Calcium 6.8 mg/dL (8.6-10.8) L 09/22/16 05:57 Creatine Kinase 171 Units/L (29-168) H 09/18/16 17:59 Troponin I 0.21 ng/mL (0-0.03) H* 09/18/16 17:59 Urine Clarity Cloudy (Clear) A 09/18/16 03:20 Urine Ketones 40 mg/dL (Negative) H 09/18/16 03:20 Urine Blood Small (Negative) H 09/18/16 03:20 Urine Nitrite Positive (Negative) A 09/18/16 03:20 Ur Leukocyte Esterase Large (Negative) H 09/18/16 03:20 Urine Microscopic RBC 5-15 per hpf (0-3) H 09/18/16 03:20 Urine Microscopic WBC TNTC per hpf (0-3) H 09/18/16 03:20 Ur Squamous Epith Cells Many per lpf (None-Few) H 09/18/16 03:20 Urine Bacteria Many per hpf (None-Few) H 09/18/16 03:20 Hyaline Casts Moderate per lpf (None-Few) H 09/18/16 03:20 Urine Yeast Few per hpf (None Seen) H 09/18/16 03:20 Ur Culture Indicated? YES (NO) A 09/18/16 03:20 - Clinical Findings Intake & Output: Intake & Output 09/21/16 09/21/16 09/22/16 15:59 23:59 07:59 Intake Total 300 / 300 656 / 656 1216 / 1216 Output Total 555 / 555 5 / 5 75 / 75 Balance -255 / -255 651 / 651 1141 / 1141 Weight 82.5 kg Consult Discharge Plan - Plan Referrals: Carlos Alberto Nguyễn MD [Primary Care Provider] - <Noel Rome - Last Filed: 09/22/16 16:33> Date of Encounter: 09/22/16 All Systems: A 10-system review of systems was performed and is negative for pertinent findings except as documented above in the HPI. Physical Examination Vital Signs: Vital Signs, Last 4 Hours Temp Pulse Resp BP Pulse Ox 09/22/16 09:00 65 18 80/49 100 09/22/16 08:20 100 100 09/22/16 08:19 98.5 F 09/22/16 08:14 98.5 F 09/22/16 08:00 90 16 131/88 100 09/22/16 07:00 100 14 106/74 100 09/22/16 06:21 15 100 09/22/16 06:19 100 19 127/88 100 Ventilator Settings Ventilator Settings: Ventilator Settings, Last 8 Hours Ventilator Mode CPAP Ventilator Mode A/C Ventilator Mode A/C Ventilator Mode A/C Ventilator Mode A/C Ventilator Mode A/C Ventilator Mode A/C Ventilator Tidal Volume 500 Setting Ventilator Tidal Volume 500 Setting Ventilator Tidal Volume 500 Setting Ventilator Tidal Volume 500 Setting Ventilator Tidal Volume 500 Setting Ventilator Tidal Volume 500 Setting Ventilator Tidal Volume 500 Setting Ventilator Respiratory Rate 12 Setting Ventilator Respiratory Rate 12 Setting Ventilator Respiratory Rate 12 Setting Ventilator Respiratory Rate 12 Setting Ventilator Respiratory Rate 12 Setting Ventilator Respiratory Rate 12 Setting Ventilator Respiratory Rate 12 Setting Actual Respiratory Rate 15 Actual Respiratory Rate 18 Positive End Expiratory 5 Pressure Positive End Expiratory 5 Pressure Positive End Expiratory 5 Pressure Positive End Expiratory 5 Pressure Positive End Expiratory 5 Pressure Positive End Expiratory 5 Pressure Positive End Expiratory 5 Pressure Peak Inspiratory Airway 15 Pressure Peak Inspiratory Airway 21 Pressure Results - Laboratory Findings CBC and BMP: 09/22/16 11:40 09/22/16 05:57 PT/INR, D-dimer PT 15.1 Seconds (9.4-12.1) H 09/18/16 17:59 Abnormal lab findings: Abnormal lab results WBC 17.7 K/mcL (4.3-11.1) H 09/22/16 05:57 RBC 5.04 M/mcL (3.82-4.97) H 09/22/16 05:57 MCH 26.8 pg (28.0-33.3) L 09/22/16 05:57 RDW 18.6 % (11.5-14.5) H 09/22/16 05:57 Neutrophils # 13.6 K/mcL (1.6-8.9) H 09/22/16 05:57 Nucleated RBCs/100 WBC 0.2 /100 WBC (0) H 09/22/16 05:57 PT 15.1 Seconds (9.4-12.1) H 09/18/16 17:59 Potassium 4.6 mEq/L (3.5-4.5) H 09/22/16 05:57 Chloride 114 mEq/L (98-109) H 09/22/16 05:57 Creatinine 1.33 mg/dL (0.57-1.11) H 09/22/16 05:57 Est GFR ( Amer) 47 (> 60) L 09/22/16 05:57 Est GFR (Non-Af Amer) 39 (> 60) L 09/22/16 05:57 Glucose 154 mg/dL (70-99) H 09/22/16 05:57 POC Glucose 246 (58-89) H 09/21/16 23:55 Calculated Osmolality 301 (280-300) H 09/22/16 05:57 Calcium 6.8 mg/dL (8.6-10.8) L 09/22/16 05:57 Troponin I 0.21 ng/mL (0-0.03) H* 09/18/16 17:59 Urine Clarity Cloudy (Clear) A 09/18/16 03:20 Urine Ketones 40 mg/dL (Negative) H 09/18/16 03:20 Urine Blood Small (Negative) H 09/18/16 03:20 Urine Nitrite Positive (Negative) A 09/18/16 03:20 Ur Leukocyte Esterase Large (Negative) H 09/18/16 03:20 Urine Microscopic RBC 5-15 per hpf (0-3) H 09/18/16 03:20 Urine Microscopic WBC TNTC per hpf (0-3) H 09/18/16 03:20 Ur Squamous Epith Cells Many per lpf (None-Few) H 09/18/16 03:20 Urine Bacteria Many per hpf (None-Few) H 09/18/16 03:20 Hyaline Casts Moderate per lpf (None-Few) H 09/18/16 03:20 Urine Yeast Few per hpf (None Seen) H 09/18/16 03:20 Ur Culture Indicated? YES (NO) A 09/18/16 03:20 - Clinical Findings Intake & Output: Intake & Output 09/21/16 09/22/16 09/22/16 23:59 07:59 15:59 Intake Total 656 / 656 1216 / 1216 Output Total 75 / 75 25 / 25 Balance 651 / 651 1141 / 1141 -25 / -25 Weight 82.5 kg - Attending Attestation I examined this patient and my medical decision-making was reviewed with the MOBILE EQUIPMENT MECHANIC/PA/Advanced Practice Nurse/Resident Physician. I agree with the documented findings, disposition and treatment plan as described except to the extent set forth below. Patient seen and examined at bedside Labs, radiology, chart personally reviewed. All lines examined without evidence of infection. Neuropsych: AMS likely s/t to sepsis with critical illness. Still lethargic but able to follow all commands without neurological dysfunction. Continue to avoid DESIGN SPECIALIST depressants as possible Pulm: Intubatred for airway mngt. favorable weaning parameters today. liberate per protocol. Cards: Hypotension resolving s/t GI hemorrhage now resolved with fluids/RBCx.. Lactate within normal limits. His respiratory of demand ischemia had been evaluated by cardiology for recommendations of ACS evaluation. History of pacemaker placement for what appears to be wandering pacemaker versus multifocal atrial tachycardia. Sinus and rate control today FEN-GI. NPO for now. Large gastric ulcer with high risk of hemorrhage. Both GI and surgery of been consulted. No surgical intervention at this time is planned and per speaking with her primary surgeon she is not a candidate. GIs request replace the patient on proton pump inhibitor infusion which has been initiated. If rebleed would need evaluation with interventional radiology and an emergent basis Renal: MALGORZATA possibly related to hypotension at the time of hemorrhage. Versus sepsis. Urine output has been low rechecking renal function at this time she has been volume resuscitated we will continue to monitor. ID: Urinary tract infection with persistent leukocytosis broadening antimicrobials to vancomycin and cefepime to cover healthcare associated organisms including urinary tract organisms of which she has Pseudomonas Klebsiella and Escherichia coli culture positive. Heme/Onc: mechanical DVTs. recheck H/H is stable transfuse for goal less than 7 unless actively bleeding Endo: Monitor glucose, checking cortisol Integ/MSK: Skin care per ICU care to prevent skin ulcers. CODE: Full code family updated at bedside
[2016-09-22] MEDS ORDERED: *HR* FentaNYL (PF) 100 MCG/2 ML VIAL IVP PRN (07:43)
[2016-09-22 07:57] LABS: CK Total (Ck Isoenzymes) 159 U/L (20-180)
[2016-09-22] MEDS: Dexmedetomidine HCl 400 MCG/100 ML MLS IVC SCH (08:18)
--- NOTE | 2016-09-22 08:23 | Gastroenterology Consult Note ---
<Rayne Pickett - Last Filed: 09/22/16 10:50> Date of Encounter: 09/22/16 Time of Encounter: 10:22 - Assessment and plan (1) Gastric ulcer Current Visit: Yes Status: Acute Assessment and plan: s/p EGD - recommendation to keep patient NPO, PPI gtt following discovery of a very large, friable gastrojejunal ulceration. NG not recommended due to perforation risk. Qualifiers: Gastric ulcer chronicity: acute Gastric ulcer complication status: with hemorrhage Qualified Code(s): K25.0 - Acute gastric ulcer with hemorrhage (2) Acute blood loss anemia Current Visit: Yes Status: Acute Assessment and plan: Monitor, transfuse as appropriate. Currently 13.5 after receiving 4 units PRBC (3) Leukocytosis Current Visit: Yes Status: Acute Assessment and plan: 2ndary to UTI, worsening. Recommendation: broad spectrum atb. Qualifiers: Leukocytosis type: unspecified Qualified Code(s): D72.829 - Elevated white blood cell count, unspecified - Time Spent With Patient Total time spent is greater than 50% in coordination of care (as documented) at patient's floor/unit and/or counseling patient: less than 15 minutes GI History of Present Illness - Data of Consult Patient: new to practice Consult date: 09/22/16 Requesting Physician: Lulu Leon - Consult Narrative Reason for consult: Hematemesis History of present illness: Ms. Reis is a 75 year old female with a significant PMH of arthritis, DM, gastric bypass and exploratory laparotomy last year at [facility]. She presented to the ER several days ago with altered mental status and was evaluated for stroke. Dx with UTI. Her hgb dropped to 8.1 during her INPT stay. GI was consulted for hematemesis and the patient underwent EGD yesterday with Dr. Kovacs. At that time, a very large blood clot was noted covering a large gastric ulcer at the gastrojejunal anastamosis. During my examination today, patient was sedated and intubated in ICU. Of note, her WBC were beginning to rise again. Colonoscopy: 10/2012 - [facility] - internal hemorrhoids/poor prep EGD: 09/2016 - [facility] - large gastrojejunal ulceration Past Med Surg Social Fam HX - Past Medical History Medical history: arthritis, coronary artery disease, diabetes, hypertension Psychiatric history: no psych history - Past Surgical History Surgical History: angioplasty/stent, pacemaker/AICD, other (Eris-en-Y gastric bypass. She is also had exploratory laparotomy and lysis of adhesions with detorsion of volvulus. This is done at [facility] last year.) - Social History Smoking Status: Former smoker Smokeless Tobacco Status: No Alcohol use: none Drug use: none - Family History Father History Unknown: Yes Adopted: No Family Member Ethnicity: Non- Living Status: Hx Family Cardiac Disorders: Yes Hx Family Respiratory Disorders: No Hx Family Cancer: No Hx Family GI Disorders: No Hx Family Endocrine Disorder: Yes Hx Family Neuromuscular Disorders: No Hx Family Neurologic Disorders: No Hx Family HEENT Disorders: No Hx Family Autoimmune Disorders: No ROS unobtainable: due to endotracheal tube - Gastrointestinal NSAID use: low dose asa Anticoagulation Use: cilostazol - Constitutional Vitals: Temp Pulse Resp BP Pulse Ox 98.5 F 100 14 106/74 100 09/22/16 08:19 09/22/16 07:00 09/22/16 07:00 09/22/16 07:00 09/22/16 08:20 General appearance: Present: no acute distress - Head Head exam: Present: atraumatic, normocephalic - Eye Eye exam: Present: normal appearance, sclera anicteric - ENT ENT exam: Present: mucous membranes dry - Neck Neck exam general surgery: Present: normal inspection, trachea midline - Respiratory Respiratory exam: Present: CTAB Additional comments: intubated - Cardiovascular Cardiovascular exam: Present: RRR, +S1, +S2 - GI/Abdominal GI/Abdominal exam: Present: soft, no peritoneal signs - Rectal Rectal exam: Present: deferred - Extremities Exam Additional comments: lower extremites cold to touch. healing abrasion R lower leg - Neurological Exam Additional comments: unable to assess, intubated and sedated - Psychiatric Additional comments: unable to assess, intubated and sedated - Skin Skin exam: Present: normal color Results - Labs CBC & Chem 7: 09/22/16 05:57 09/22/16 05:57 Labs: Last Result Calcium 6.8 mg/dL (8.6-10.8) L 09/22/16 05:57 Troponin I 0.21 ng/mL (0-0.03) H* 06/05/17 17:59 Urine Opiates Screen Negative ng/mL (Nrhxov=[id number]) 09/18/16 03:20 Entire Visit Hgb 13.5 g/dL (11.5-15.4) D 09/22/16 05:57 Hct 41.9 % (35.3-44.9) 09/22/16 05:57 PT 15.1 Seconds (9.4-12.1) H 09/18/16 17:59 - ABG ABG results: PT/INR, D-dimer PT 15.1 Seconds (9.4-12.1) H 09/18/16 17:59 - Impressions Impressions Chest X-Ray 09/21/16 18:59 IMPRESSION: 1. Endotracheal tube is positioned approximately 5 cm above the nilda. 2. No acute cardiopulmonary process identified. D/ / 09/21/2016 19:49:03 Harjit Leyva MD / [facility] Interpreting Provider: Harjit Leyva MD Consult Discharge Plan - Plan Referrals: Carlos Alberto Nguyễn MD [Primary Care Provider] - <Everardo Kovacs - Last Filed: 09/22/16 12:49> Date of Encounter: 09/22/16 Time of Encounter: 10:30 - Time Spent With Patient Total time spent is greater than 50% in coordination of care (as documented) at patient's floor/unit and/or counseling patient: GI History of Present Illness - Data of Consult Requesting Physician: Lulu Leon - Consult Narrative History of present illness: Ms. Reis is a 75 year old female - Constitutional Vitals: Temp Pulse Resp BP Pulse Ox 98.2 F 82 15 90/61 100 09/22/16 11:47 09/22/16 11:18 09/22/16 11:00 09/22/16 11:00 09/22/16 11:00 Results - Labs CBC & Chem 7: 09/22/16 05:57 09/22/16 05:57 Labs: Last Result Calcium 6.8 mg/dL (8.6-10.8) L 09/22/16 05:57 Troponin I 0.21 ng/mL (0-0.03) H* 09/18/16 17:59 Urine Opiates Screen Negative ng/mL ([id number]=487) 09/18/16 03:20 Entire Visit Hgb 13.5 g/dL (11.5-15.4) D 09/22/16 05:57 Hct 41.9 % (35.3-44.9) 09/22/16 05:57 PT 15.1 Seconds (9.4-12.1) H 09/18/16 17:59 - ABG ABG results: PT/INR, D-dimer PT 15.1 Seconds (9.4-12.1) H 09/18/16 17:59 - Impressions Impressions Chest X-Ray 09/21/16 18:59 IMPRESSION: 1. Endotracheal tube is positioned approximately 5 cm above the nilda. 2. No acute cardiopulmonary process identified. D/ / 09/21/2016 19:49:03 Harjit Le[facility]va MD [facility] Inter[facility]ting Provider: Harjit Leyva MD - Attending Attestation I examined this patient and my medical decision-making was reviewed with the CONCRETE BOOM OPERATOR/PA/Advanced Practice Nurse/Resident Physician. I agree with the documented findings, disposition and treatment plan as described except to the extent set forth below.
[2016-09-22] MEDS ORDERED: *HR* Metoprolol 5 MG/5 ML VIAL IVP PRN (08:48)
[2016-09-22] MEDS: Lacri-Lube 3.5 GM TUBE BOTH EYES SCH ×2 (09:39→19:36)
[2016-09-22] MEDS: *HR* Metoprolol 5 MG/5 ML VIAL IVP SCH ×2 (09:40→19:40)
[2016-09-22] MEDS: Chlorhexidine Rinse 15 ML MOUTHWASH MM SCH ×2 (09:42→19:35)
[2016-09-22] MEDS: Levothyroxine Sodium 100 MCG VIAL IVP SCH (09:42)
[2016-09-22] MEDS ORDERED: Vancomycin 1,500 MG in D5% in Water 250 ML IVPB ONE (12:00)
[2016-09-22] MEDS: 0.9 % Sodium Chloride 1,000 ML IVC SCH (13:56)
[2016-09-22 14:22] LABS: Basophils % 0.1 %; Hematocrit 36.7 % (35.3-44.9); Immature Granulocytes % 0.9 % (0-4); Lymphocytes # 2.5 K/mcL (0.6-4.6); Lymphocytes % 17.7 %; Mean Corpuscular HGB Conc 32.7 g/dL (31.6-35.5); Mean Corpuscular Hemoglobin 27.2 pg (28.0-33.3); Mean Corpuscular Volume 83.2 fL (83.0-100.0); Mean Platelet Volume 11.5 fL (9.4-12.4); Monocytes # 0.8 K/mcL (0.0-1.3); Monocytes % 5.4 %; Neutrophils # 10.6 K/mcL (1.6-8.9); Nucleated Red Blood Cells 0.3 /100 WBC (0); Platelet Count 230 K/mcL (140-400); Red Blood Count 4.41 M/mcL (3.82-4.97); Red Cell Distribution Width 18.6 % (11.5-14.5); Segmented Neutrophils % 75.9 %
[2016-09-22 14:39] LABS: ABG Base Excess -2.5 mEq/L (-2.0 to 3.0); ABG HCO3 21.2 mEQ/L (21-27); ABG Oxygen Saturation 99 % (95-98); ABG PCO2 32 mmHg (35-45); ABG PH 7.43 pH Units (7.32-7.45); ABG PO2 146 mmHg (85-104); ABG TCO2 22.2 mEq/L (20-26)
[2016-09-22 14:40] LABS: Blood Gas FiO2 32 %
[2016-09-22 16:42] LABS: Albumin 1.4 g/dL (3.5-5.0); Albumin/Globulin Ratio 0.5 (1.1-2.2); Calcium 6.5 mg/dL (8.6-10.8); Globulin 2.6 g/dL (2.4-3.5); Potassium 3.1 mEq/L (3.5-4.5)
[2016-09-22] MEDS ORDERED: Cefepime HCl 2,000 MG in D5% in Water (Mini-Bag+) 100 ML IVPB SCH (18:00)
[2016-09-22] MEDS ORDERED: Pantoprazole 40 MG VIAL IVP SCH (18:00)
[2016-09-22] MEDS ORDERED: Furosemide 20 MG/2 ML VIAL IVP ONE (18:15)
[2016-09-22] MEDS ORDERED: Artificial Tears SOLN 15 ML BOTTLE BOTH EYES SCH (21:00)
[2016-09-23] MEDS: Insulin LISPRO 300 UNITS/3 ML VIAL SQ SCH ×5 (00:42→23:39)
[2016-09-23] MEDS: Pantoprazole 40 MG in 0.9 % Sodium Chloride Mini Bag 100 ML IVC SCH ×4 (02:44→20:08)
[2016-09-23 05:57] LABS: Calcium 6.8 mg/dL (8.6-10.8); Magnesium 1.6 mg/dL (1.6-2.6)
[2016-09-23 06:02] LABS: Potassium 3.6 mEq/L (3.5-4.5)
[2016-09-23 06:38] LABS: Basophils % 0.1 %; Hematocrit 34.9 % (35.3-44.9); Hemoglobin 11.8 g/dL (11.5-15.4); Immature Granulocytes % 0.6 % (0-4); Lymphocytes # 2.5 K/mcL (0.6-4.6); Mean Corpuscular HGB Conc 33.8 g/dL (31.6-35.5); Mean Corpuscular Hemoglobin 27.2 pg (28.0-33.3); Mean Corpuscular Volume 80.4 fL (83.0-100.0); Mean Platelet Volume 10.8 fL (9.4-12.4); Monocytes # 0.9 K/mcL (0.0-1.3); Monocytes % 6.3 %; Neutrophils # 10.4 K/mcL (1.6-8.9); Nucleated Red Blood Cells 0.2 /100 WBC (0); Platelet Count 197 K/mcL (140-400); Red Blood Count 4.34 M/mcL (3.82-4.97); Red Cell Distribution Width 18.6 % (11.5-14.5)
[2016-09-23] MEDS: Dexmedetomidine HCl 400 MCG/100 ML MLS IVC SCH ×2 (07:43→13:44)
--- NOTE | 2016-09-23 08:00 | Pulmonology Progress Note ---
<Cindy Adams - Last Filed: 09/23/16 07:57> Date of Encounter: 09/23/16 Time of Encounter: 07:58 Assessment and Plan (1) Gastric ulcer Current Visit: Yes Status: Acute Neuropsych: Dementia/acute encephalopathy. Patient fidgeting in bed. States she wants to get out of bed. Pulm: Breathing room air Cardio: Stable FEN-GI: Protonix gtt for gastric ulcer. Patient currently nothing by mouth. No NG or OG tubes. Gastroenterology on board, appreciate recommendations. Renal: Hypovolemic prerenal MALGORZATA due to acute blood loss anemia, improved today. ID: Blood cultures, repeat urine cultures pending. Antibiotics changed to ceftazidime (day 2). Previous urine culture shows sensitivity of all 3 bacteria to this antibiotic. Total antibiotic day 5. Heme/Onc: Hemoglobin decreased from 13.5-11.8; patient still with melena/BPRPR, but decreased amounts. Blood transfusions will be given as needed. DVT prophylaxis with SCDs Endocrine: Random cortisol normal Integ/MSK: ICU skin care protocol Transfer to stepdown. Qualifiers: Gastric ulcer chronicity: acute Gastric ulcer complication status: with hemorrhage Qualified Code(s): K25.0 - Acute gastric ulcer with hemorrhage (2) Acute encephalopathy Current Visit: Yes Status: Acute (3) Acute blood loss anemia Current Visit: Yes Status: Acute (4) UTI (urinary tract infection) Current Visit: Yes Status: Acute Qualifiers: Urinary tract infection type: site unspecified Hematuria presence: with hematuria Qualified Code(s): N39.0 - Urinary tract infection, site not specified; R31.9 - Hematuria, unspecified (5) Leukocytosis Current Visit: Yes Status: Acute Qualifiers: Leukocytosis type: unspecified Qualified Code(s): D72.829 - Elevated white blood cell count, unspecified (6) MALGORZATA (acute kidney injury) Current Visit: Yes Status: Acute (7) CAD (coronary artery disease) Current Visit: Yes Status: Chronic Qualifiers: Coronary Disease-Associated Artery/Lesion type: [place] artery [place] vs. transplanted heart: [place] heart Associated angina: without angina Qualified Code(s): I25.10 - Atherosclerotic heart disease of [place] coronary artery without angina pectoris Subjective Principal diagnosis: Elevated troponin, UTI, AMS Interval history: Patient moving around in bed against restraints. Fidgeting legs which are unrestrained. Objective PUL Vital signs: Last Vital Signs Temp 98.3 F 09/23/16 07:53 Pulse 104 09/23/16 07:53 Resp 16 09/23/16 07:53 BP 131/73 09/23/16 07:53 Pulse Ox 100 09/23/16 07:53 General appearance: no acute distress, appears uncomfortable (Fidgeting legs in bed, appears to want to leave the bed) Eyes: nonicteric ENT: oropharynx moist Neck: supple Effort: normal Auscultation: bilateral: clear Cardiovascular: regular rate and rhythm Gastrointestinal: normoactive bowel sounds, soft, non-tender Integumentary: other (Evidence of peripheral vascular and peripheral arterial disease, scabs along bilateral calves, eschar on dorsal aspect of right second and third toe, scab on dorsal aspect of left second toe) Extremities: other (Evidence of peripheral vascular peripheral arterial disease , feet were cool to the touch but pink, no palpable pulses) Musculoskeletal: other (All 4 extremities, moving against upper extremity restraints, fidgeting legs) Results - Laboratory Findings CBC and BMP: 09/23/16 06:07 09/23/16 05:34 ABG ABG pH 7.43 pH Units (7.32-7.45) 09/22/16 14:32 ABG pCO2 32 mmHg (35-45) L 09/22/16 14:32 ABG pO2 146 mmHg (85-104) H 09/22/16 14:32 ABG O2 Saturation 99 % (95-98) H 09/22/16 14:32 PT/INR, D-dimer PT 15.1 Seconds (9.4-12.1) H 09/18/16 17:59 Abnormal lab findings: Abnormal lab results WBC 13.9 K/mcL (4.3-11.1) H 09/23/16 06:07 Hct 34.9 % (35.3-44.9) L 09/23/16 06:07 MCV 80.4 fL (83.0-100.0) L 09/23/16 06:07 MCH 27.2 pg (28.0-33.3) L 09/23/16 06:07 RDW 18.6 % (11.5-14.5) H 09/23/16 06:07 Neutrophils # 10.4 K/mcL (1.6-8.9) H 09/23/16 06:07 Nucleated RBCs/100 WBC 0.2 /100 WBC (0) H 09/23/16 06:07 PT 15.1 Seconds (9.4-12.1) H 09/18/16 17:59 ABG pCO2 32 mmHg (35-45) L 09/22/16 14:32 ABG pO2 146 mmHg (85-104) H 09/22/16 14:32 ABG O2 Saturation 99 % (95-98) H 09/22/16 14:32 ABG Base Excess -2.5 mEq/L (-2.0 to 3.0) L 09/22/16 14:32 Chloride 117 mEq/L (98-109) H 09/23/16 05:34 Carbon Dioxide 17 mEq/L (19-29) L 09/23/16 05:34 BUN 21 mg/dL (7-20) H 09/23/16 05:34 Creatinine 1.32 mg/dL (0.57-1.11) H 09/23/16 05:34 Est GFR ( Amer) 48 (> 60) L 09/23/16 05:34 Est GFR (Non-Af Amer) 39 (> 60) L 09/23/16 05:34 Glucose 109 mg/dL (70-99) H 09/23/16 05:34 POC Glucose 106 (58-89) H 09/23/16 00:36 Calculated Osmolality 304 (280-300) H 09/23/16 05:34 Calcium 6.8 mg/dL (8.6-10.8) L 09/23/16 05:34 AST 35 Units/L (5-34) H 09/22/16 11:40 Troponin I 0.21 ng/mL (0-0.03) H* 09/18/16 17:59 Serum Total Protein 4.0 g/dL (6.0-8.3) L 09/22/16 11:40 Albumin 1.4 g/dL (3.5-5.0) L 09/22/16 11:40 Albumin/Globulin Ratio 0.5 (1.1-2.2) L 09/22/16 11:40 Urine Clarity Cloudy (Clear) A 09/18/16 03:20 Urine Ketones 40 mg/dL (Negative) H 09/18/16 03:20 Urine Blood Small (Negative) H 09/18/16 03:20 Urine Nitrite Positive (Negative) A 09/18/16 03:20 Ur Leukocyte Esterase Large (Negative) H 09/18/16 03:20 Urine Microscopic RBC 5-15 per hpf (0-3) H 09/18/16 03:20 Urine Microscopic WBC TNTC per hpf (0-3) H 09/18/16 03:20 Ur Squamous Epith Cells Many per lpf (None-Few) H 09/18/16 03:20 Urine Bacteria Many per hpf (None-Few) H 09/18/16 03:20 Hyaline Casts Moderate per lpf (None-Few) H 09/18/16 03:20 Urine Yeast Few per hpf (None Seen) H 09/18/16 03:20 Ur Culture Indicated? YES (NO) A 09/18/16 03:20 - Clinical Findings Intake & Output: Intake & Output 09/22/16 09/22/16 09/23/16 15:59 23:59 07:59 Intake Total 885 / 885 300 / 300 110 / 110 Output Total 35 / 35 55 / 55 1100 / 1100 Balance 850 / 850 245 / 245 -990 / -990 Consult Discharge Plan - Plan Referrals: Carlos Alberto Nguyễn MD [Primary Care Provider] - <Noel Rome - Last Filed: 09/23/16 12:28> Date of Encounter: 09/23/16 Objective PUL Vital signs: Last Vital Signs Temp 98.3 F 09/23/16 07:53 Pulse 77 09/23/16 12:00 Resp 12 09/23/16 11:00 BP 142/99 09/23/16 11:00 Pulse Ox 98 09/23/16 11:00 Results - Laboratory Findings CBC and BMP: 09/23/16 06:07 09/23/16 05:34 ABG ABG pH 7.43 pH Units (7.32-7.45) 09/22/16 14:32 ABG pCO2 32 mmHg (35-45) L 09/22/16 14:32 ABG pO2 146 mmHg (85-104) H 09/22/16 14:32 ABG O2 Saturation 99 % (95-98) H 09/22/16 14:32 PT/INR, D-dimer PT 15.1 Seconds (9.4-12.1) H 09/18/16 17:59 Abnormal lab findings: Abnormal lab results WBC 13.9 K/mcL (4.3-11.1) H 09/23/16 06:07 Hct 34.9 % (35.3-44.9) L 09/23/16 06:07 MCV 80.4 fL (83.0-100.0) L 09/23/16 06:07 MCH 27.2 pg (28.0-33.3) L 09/23/16 06:07 RDW 18.6 % (11.5-14.5) H 09/23/16 06:07 Neutrophils # 10.4 K/mcL (1.6-8.9) H 09/23/16 06:07 Nucleated RBCs/100 WBC 0.2 /100 WBC (0) H 09/23/16 06:07 PT 15.1 Seconds (9.4-12.1) H 09/18/16 17:59 ABG pCO2 32 mmHg (35-45) L 09/22/16 14:32 ABG pO2 146 mmHg (85-104) H 09/22/16 14:32 ABG O2 Saturation 99 % (95-98) H 09/22/16 14:32 ABG Base Excess -2.5 mEq/L (-2.0 to 3.0) L 09/22/16 14:32 Chloride 117 mEq/L (98-109) H 09/23/16 05:34 Carbon Dioxide 17 mEq/L (19-29) L 09/23/16 05:34 BUN 21 mg/dL (7-20) H 09/23/16 05:34 Creatinine 1.32 mg/dL (0.57-1.11) H 09/23/16 05:34 Est GFR ( Amer) 48 (> 60) L 09/23/16 05:34 Est GFR (Non-Af Amer) 39 (> 60) L 09/23/16 05:34 Glucose 109 mg/dL (70-99) H 09/23/16 05:34 POC Glucose 115 (58-89) H 09/23/16 11:11 Calculated Osmolality 304 (280-300) H 09/23/16 05:34 Calcium 6.8 mg/dL (8.6-10.8) L 09/23/16 05:34 AST 35 Units/L (5-34) H 09/22/16 11:40 Troponin I 0.21 ng/mL (0-0.03) H* 09/18/16 17:59 Serum Total Protein 4.0 g/dL (6.0-8.3) L 09/22/16 11:40 Albumin 1.4 g/dL (3.5-5.0) L 09/22/16 11:40 Albumin/Globulin Ratio 0.5 (1.1-2.2) L 09/22/16 11:40 Urine Clarity Cloudy (Clear) A 09/18/16 03:20 Urine Ketones 40 mg/dL (Negative) H 09/18/16 03:20 Urine Blood Small (Negative) H 09/18/16 03:20 Urine Nitrite Positive (Negative) A 09/18/16 03:20 Ur Leukocyte Esterase Large (Negative) H 09/18/16 03:20 Urine Microscopic RBC 5-15 per hpf (0-3) H 09/18/16 03:20 Urine Microscopic WBC TNTC per hpf (0-3) H 09/18/16 03:20 Ur Squamous Epith Cells Many per lpf (None-Few) H 09/18/16 03:20 Urine Bacteria Many per hpf (None-Few) H 09/18/16 03:20 Hyaline Casts Moderate per lpf (None-Few) H 09/18/16 03:20 Urine Yeast Few per hpf (None Seen) H 09/18/16 03:20 Ur Culture Indicated? YES (NO) A 09/18/16 03:20 - Clinical Findings Intake & Output: Intake & Output 09/22/16 09/23/16 09/23/16 23:59 07:59 15:59 Intake Total 300 / 300 210 / 210 90 / 90 Output Total 55 / 55 1100 / 1100 325 / 325 Balance 245 / 245 -890 / -890 -235 / -235 - Attending Attestation I examined this patient and my medical decision-making was reviewed with the HAND MOLDER/PA/Advanced Practice Nurse/Resident Physician. I agree with the documented findings, disposition and treatment plan as described except to the extent set forth below. Patient seen and examined at bedside Labs, radiology, chart personally reviewed. All lines examined without evidence of infection. Neuropsych: AMS likely s/t to sepsis with critical illness with history of underlying dementia. Still lethargic but able to follow all simple commands commands clearly exhibiting features of delirium however. Continue to avoid CONTACT [employer] MOLDER depressants as possible and focus and anabaptism of sleep-wake cycle Pulm: Liberated from the ventilator yesterday currently saturating well on room air Cards: Hypotension has resolved FEN-GI. NPO for now. Large gastric ulcer with high risk of hemorrhage. Both GI and surgery of been consulted. No surgical intervention at this time is planned and per speaking with her primary surgeon she is not a candidate. Continue PPI drip. Likely start trophic enteral nutrition tomorrow Renal: MALGORZATA stable possibly related to hypotension at the time of hemorrhage urine output responded to diuresis yesterday and we will continue to monitor but if urine output remained sluggish can give another dose of Lasix this afternoon. ID: Urinary tract infection with persistent leukocytosis continue cefepime to cover urinary tract organisms of which she has Pseudomonas Klebsiella and Escherichia coli that were culture positive. Heme/Onc: mechanical DVTs. recheck H/H is stable transfuse for goal less than 7 unless actively bleeding Endo: Monitor glucose, checking cortisol Integ/MSK: Skin care per ICU care to prevent skin ulcers. CODE: Full code family updated at bedside Stable for transfer to stepdown unit for ongoing care
[2016-09-23] MEDS: *HR* Metoprolol 5 MG/5 ML VIAL IVP SCH ×2 (08:54→20:23)
[2016-09-23] MEDS: Chlorhexidine Rinse 15 ML MOUTHWASH MM SCH ×2 (09:25→20:23)
[2016-09-23] MEDS: Lacri-Lube 3.5 GM TUBE BOTH EYES SCH (09:26)
[2016-09-23] MEDS: Levothyroxine Sodium 100 MCG VIAL IVP SCH (09:34)
--- NOTE | 2016-09-23 09:48 | General Surgery Progress Note ---
Date of Encounter: 09/24/16 Time of Encounter: 09:47 - Assessment and Plan (1) Gastric ulcer Current Visit: Yes Status: Acute Discussed with the primary service; the most appropriate course of be to continue with conservative management and observation. I would keep her nothing by mouth at this time due to the concern about the significant ulcer that is present and would consider starting her on clears tomorrow. Would not recommend any type of surgical intervention if at all possible. Otherwise continue with current management. Qualifiers: Gastric ulcer chronicity: acute Gastric ulcer complication status: with hemorrhage Qualified Code(s): K25.0 - Acute gastric ulcer with hemorrhage Subjective Patient reports: no new complaints (Noted history of upper GI bleed with ulcer at the level of her gastrojejunal anastomosis.) Objective Vital Signs - Last 8 Hours Temp Pulse Resp BP Pulse Ox 09/23/16 09:00 65 14 146/64 98 09/23/16 08:00 104 14 144/107 99 09/23/16 07:53 98.3 F 104 16 131/73 100 09/23/16 06:00 97 14 105/72 96 09/23/16 05:00 102 23 129/80 95 09/23/16 04:00 98.1 F 92 18 101/65 100 09/23/16 03:00 96 14 90/48 99 09/23/16 02:30 108 16 99 Intake and Output 09/22/16 09/23/16 09/23/16 23:59 07:59 15:59 Intake Total 300 / 300 210 / 210 0 / 0 Output Total 55 / 55 1100 / 1100 125 / 125 Balance 245 / 245 -890 / -890 -125 / -125 Intake: IV Fluids 300 / 300 210 / 210 Protonix 40 MG In 0.9 % 200 / 200 200 / 200 Sodium Chloride (Mini-Bag +) 100 ML @ 20 mls/hr IVC .Q5H BRIAN Rx#: [id number] Tazicef 1,000 mg In 100 / 100 10 / 10 Dextrose 5% (Minibag+) 100 ML 100 ML @ 200 mls/ hr IVPB Q12H BRIAN Rx#: [id number] Oral 0 / 0 0 / 0 0 / 0 Output: Catheter 55 / 55 1100 / 1100 125 / 125 Other: Stool Size Large Small Small Stool Consistency soft soft loose liquid Stool Characteristics Tarry Tarry Stool Color Black Dark Red Blood # Bowel Movements 1 1 Blood Glucose* 106 - Labs 09/24/16 03:25 09/24/16 03:25 Diabetes panel 09/22/16 09/23/16 Range/Units 11:40 05:34 Sodium 144 145 (136-145) mEq/L Potassium 3.1 L D 3.6 (3.5-4.5) mEq/L Chloride 117 H 117 H (98-109) mEq/L Carbon Dioxide 19 17 L (19-29) mEq/L BUN 18 21 H (7-20) mg/dL Creatinine 1.35 H 1.32 H (0.57-1.11) mg/dL Glucose 91 109 H (70-99) mg/dL Calcium 6.5 L 6.8 L (8.6-10.8) mg/dL AST 35 H (5-34) Units/L ALT 24 (0-55) Units/L Alkaline Phosphatase 119 (38-126) Units/L Albumin 1.4 L (3.5-5.0) g/dL Calcium panel 09/22/16 09/23/16 Range/Units 11:40 05:34 Calcium 6.5 L 6.8 L (8.6-10.8) mg/dL Albumin 1.4 L (3.5-5.0) g/dL Pituitary panel 09/22/16 09/23/16 Range/Units 11:40 05:34 Sodium 144 145 (136-145) mEq/L Potassium 3.1 L D 3.6 (3.5-4.5) mEq/L Chloride 117 H 117 H (98-109) mEq/L Carbon Dioxide 19 17 L (19-29) mEq/L BUN 18 21 H (7-20) mg/dL Creatinine 1.35 H 1.32 H (0.57-1.11) mg/dL Glucose 91 109 H (70-99) mg/dL Calcium 6.5 L 6.8 L (8.6-10.8) mg/dL Adrenal panel 09/22/16 09/23/16 Range/Units 11:40 05:34 Sodium 144 145 (136-145) mEq/L Potassium 3.1 L D 3.6 (3.5-4.5) mEq/L Chloride 117 H 117 H (98-109) mEq/L Carbon Dioxide 19 17 L (19-29) mEq/L BUN 18 21 H (7-20) mg/dL Creatinine 1.35 H 1.32 H (0.57-1.11) mg/dL Glucose 91 109 H (70-99) mg/dL Calcium 6.5 L 6.8 L (8.6-10.8) mg/dL Total Bilirubin 1.0 (0.2-1.2) mg/dL AST 35 H (5-34) Units/L ALT 24 (0-55) Units/L Alkaline Phosphatase 119 (38-126) Units/L Albumin 1.4 L (3.5-5.0) g/dL Consult Discharge Plan - Plan Referrals: Carlos Alberto Nguyễn MD [Primary Care Provider] -
[2016-09-23] MEDS ORDERED: Vancomycin 1,000 MG in D5% in Water 250 ML IVPB SCH (12:00)
[2016-09-23] MEDS ORDERED: Ondansetron 4 MG/2 ML VIAL IVP PRN (12:07)
[2016-09-23] MEDS ORDERED: *HR* FentaNYL (PF) 100 MCG/2 ML VIAL IVP PRN (12:07)
[2016-09-23] MEDS ORDERED: *HR* Dextrose 50 % in Water (Syg) 50 ML SYRINGE IVP PRN (12:07)
[2016-09-23] MEDS ORDERED: *HR* Metoprolol 5 MG/5 ML VIAL IVP PRN (12:07)
[2016-09-23] MEDS ORDERED: *HR* Midazolam HCl 2 MG/2 ML VIAL IVP PRN (12:07)
[2016-09-23] MEDS ORDERED: D5% in Water 1,000 ML IVC PRN (12:07)
[2016-09-23] MEDS ORDERED: Dextrose Gel 15 GM PO PRN ×2 (12:07)
[2016-09-24] MEDS: Pantoprazole 40 MG in 0.9 % Sodium Chloride Mini Bag 100 ML IVC SCH ×5 (00:51→22:23)
[2016-09-24 03:41] LABS: Eosinophils % 0.1 %; Hematocrit 35.7 % (35.3-44.9); Immature Granulocytes % 0.5 % (0-4); Lymphocytes # 1.7 K/mcL (0.6-4.6); Lymphocytes % 16.3 %; Mean Corpuscular HGB Conc 33.6 g/dL (31.6-35.5); Mean Corpuscular Hemoglobin 27.1 pg (28.0-33.3); Mean Corpuscular Volume 80.8 fL (83.0-100.0); Mean Platelet Volume 10.7 fL (9.4-12.4); Monocytes # 0.5 K/mcL (0.0-1.3); Monocytes % 5.2 %; Nucleated Red Blood Cells 0.2 /100 WBC (0); Platelet Count 240 K/mcL (140-400); Red Blood Count 4.42 M/mcL (3.82-4.97); Red Cell Distribution Width 18.7 % (11.5-14.5); Segmented Neutrophils % 77.9 %
[2016-09-24 03:50] LABS: BUN/Creatinine Ratio 18 (6-26); Blood Urea Nitrogen 19 mg/dL (7-20); Calcium 7.2 mg/dL (8.6-10.8); Carbon Dioxide 17 mEq/L (19-29); Chloride 115 mEq/L (98-109); Glucose 134 mg/dL (70-99); Osmolality,Calculated 304 (280-300); Sodium 145 mEq/L (136-145); eGFR For African Americans > 60 (> 60); eGFR For Non-African Americans 51 (> 60)
[2016-09-24 03:51] LABS: Potassium 3.7 mEq/L (3.5-4.5)
[2016-09-24] MEDS: Insulin LISPRO 300 UNITS/3 ML VIAL SQ SCH ×3 (03:57→22:20)
[2016-09-24] MEDS: Levothyroxine Sodium 100 MCG VIAL IVP SCH (07:59)
[2016-09-24] MEDS: Chlorhexidine Rinse 15 ML MOUTHWASH MM SCH (07:59)
[2016-09-24] MEDS: *HR* Metoprolol 5 MG/5 ML VIAL IVP SCH ×2 (07:59→22:22)
[2016-09-24] MEDS: Dexmedetomidine HCl 400 MCG/100 ML MLS IVC SCH (11:44)
[2016-09-25 03:55] LABS: Basophils % 0.1 %; Eosinophils # 0.1 K/mcL (0.0-0.6); Eosinophils % 1.4 %; Hematocrit 33.5 % (35.3-44.9); Hemoglobin 10.9 g/dL (11.5-15.4); Immature Granulocytes % 0.6 % (0-4); Lymphocytes # 1.6 K/mcL (0.6-4.6); Lymphocytes % 18.1 %; Mean Corpuscular HGB Conc 32.5 g/dL (31.6-35.5); Mean Corpuscular Hemoglobin 26.7 pg (28.0-33.3); Mean Corpuscular Volume 82.1 fL (83.0-100.0); Mean Platelet Volume 11.3 fL (9.4-12.4); Monocytes # 0.5 K/mcL (0.0-1.3); Monocytes % 6.2 %; Neutrophils # 6.4 K/mcL (1.6-8.9); Platelet Count 265 K/mcL (140-400); Red Blood Count 4.08 M/mcL (3.82-4.97); Red Cell Distribution Width 18.7 % (11.5-14.5); Segmented Neutrophils % 73.6 %
[2016-09-25 03:58] LABS: BUN/Creatinine Ratio 17 (6-26); Blood Urea Nitrogen 14 mg/dL (7-20); Calcium 7.2 mg/dL (8.6-10.8); Carbon Dioxide 23 mEq/L (19-29); Chloride 112 mEq/L (98-109); Glucose 120 mg/dL (70-99); Osmolality,Calculated 298 (280-300); Potassium 2.8 mEq/L (3.5-4.5); Sodium 143 mEq/L (136-145); eGFR For African Americans > 60 (> 60); eGFR For Non-African Americans > 60 (> 60)
[2016-09-25] MEDS: Pantoprazole 40 MG in 0.9 % Sodium Chloride Mini Bag 100 ML IVC SCH ×4 (05:53→21:34)
[2016-09-25] MEDS: Insulin LISPRO 300 UNITS/3 ML VIAL SQ SCH ×4 (08:01→20:49)
--- NOTE | 2016-09-25 08:37 | Internal Med Progress Note ---
<Popeye Frankel - Last Filed: 09/25/16 15:39> Date of Encounter: 09/25/16 Time of Encounter: 08:37 - Assessment and plan (1) Acute blood loss anemia Current Visit: Yes Status: Acute Assessment and plan: Nurse told me pt had bloody stool this AM, hgb dropped from 12.0 to 10.5 in a day, GI/surgery on board, not a surgical candidate per surgery, hx of bypass surgery, s/p EGD last week which showed large friable ulcer and clots seen, s/p 4 units of prbc, con't to closely monitor H/H and transfuse as needed, hemodynamically stable now. (2) Gastric ulcer Current Visit: Yes Status: Acute Assessment and plan: Con't PPI, GI/surgery on board, not a surgical candidate per surgery, hx of bypass surgery, s/p EGD last week which showed large friable ulcer and clots seen, s/p 4 units of prbc, con't to closely monitor H/H. Qualifiers: Gastric ulcer chronicity: acute Gastric ulcer complication status: with hemorrhage Qualified Code(s): K25.0 - Acute gastric ulcer with hemorrhage (3) Dementia Current Visit: Yes Status: Acute Assessment and plan: One to one now, less agitated now, con't to treat UTI and treat blood loss anemia. Qualifiers: Qualified Code(s): F03.90 - Unspecified dementia without behavioral disturbance (4) UTI (urinary tract infection) Current Visit: Yes Status: Acute Assessment and plan: Con't ceftazidime IV which sensitive to all three of pseudomonas, klebsilella and e.coli based on urine culture 09/18/2016, yeast is likely contaminant, no current fever or leukocytosis. Qualifiers: Urinary tract infection type: site unspecified Hematuria presence: with hematuria Qualified Code(s): N39.0 - Urinary tract infection, site not specified; R31.9 - Hematuria, unspecified (5) Hypokalemia Current Visit: Yes Status: Acute Assessment and plan: Will replace it today and recheck the level in AM as well as magnesium level. (6) DVT prophylaxis Current Visit: Yes Status: Acute Assessment and plan: IPC. - Subjective Interval history: Pt seen and examined, A and Ox1, agitated last night, trying to get out of bed, now on one to one, refuse to take po med. - Constitutional Vitals: Temp Pulse Resp BP Pulse Ox 97.8 F 85 15 155/90 95 09/25/16 02:55 09/25/16 06:48 09/25/16 06:48 09/25/16 06:48 09/25/16 02:55 General appearance: Present: A&O X 1, no acute distress. Absent: cooperative, answers questions appropriately - Respiratory Respiratory exam: Present: CTAB. Absent: rales, rhonchi, wheezes - Cardiovascular Cardiovascular exam: Present: RRR, +S1, +S2. Absent: gallop, rubs, systolic murmur - GI/Abdominal GI/Abdominal exam: Present: normal bowel sounds, soft. Absent: firm, guarding, rebound, rigid, tenderness - Extremities Exam Extremities exam: Present: radial pulses palpable and symetrical. Absent: calf tenderness, pedal edema, tenderness - Neurological Exam Neurological exam: Present: altered. Absent: alert, oriented X3 Additional comments: limited neuro exam due to baseline dementia Internal Medicine: Result - Labs CBC & Chem 7: 09/25/16 09:39 09/25/16 03:05 Labs: Short CBC 09/25/16 Range/Units 03:05 WBC 8.7 (4.3-11.1) K/mcL Hgb 10.9 L (11.5-15.4) g/dL Hct 33.5 L (35.3-44.9) % Plt Count 265 (140-400) K/mcL Neutrophils # 6.4 (1.6-8.9) K/mcL BMP 09/25/16 03:05 Sodium 143 Potassium 2.8 L Chloride 112 H Carbon Dioxide 23 BUN 14 Creatinine 0.83 Glucose 120 H Calcium 7.2 L - ABG Interpretation ABG results: ABG ABG pH 7.43 pH Units (7.32-7.45) 09/22/16 14:32 ABG pCO2 32 mmHg (35-45) L 09/22/16 14:32 ABG pO2 146 mmHg (85-104) H 09/22/16 14:32 ABG O2 Saturation 99 % (95-98) H 09/22/16 14:32 PT/INR, D-dimer PT 15.1 Seconds (9.4-12.1) H 09/18/16 17:59 Consult Discharge Plan - Plan Referrals: Carlos Alberto Nguyễn MD [Primary Care Provider] - <Ga Delgado - Last Filed: 09/25/16 19:06> Date of Encounter: 09/25/16 - Assessment and plan (1) Gastric ulcer Current Visit: Yes Status: Acute Qualifiers: Gastric ulcer chronicity: acute Gastric ulcer complication status: with hemorrhage Qualified Code(s): K25.0 - Acute gastric ulcer with hemorrhage (2) GI bleeding Current Visit: Yes Status: Acute Qualifiers: GI bleed type/associated pathology: gastrointestinal hemorrhage with hematemesis Qualified Code(s): K92.0 - Hematemesis (3) Acute blood loss anemia Current Visit: Yes Status: Acute (4) UTI (urinary tract infection) Current Visit: Yes Status: Acute Qualifiers: Urinary tract infection type: site unspecified Hematuria presence: with hematuria Qualified Code(s): N39.0 - Urinary tract infection, site not specified; R31.9 - Hematuria, unspecified (5) Dementia Current Visit: Yes Status: Acute Qualifiers: Dementia type: vascular dementia Dementia behavioral disturbance: with behavioral disturbance Qualified Code(s): F01.51 - Vascular dementia with behavioral disturbance (6) Artificial pacemaker Current Visit: Yes Status: Chronic - Constitutional Vitals: Temp Pulse Resp BP Pulse Ox 97.6 F 71 16 135/75 95 09/25/16 15:12 09/25/16 15:12 09/25/16 15:12 09/25/16 15:12 09/25/16 02:55 Internal Medicine: Result - Labs CBC & Chem 7: 09/25/16 09:39 09/25/16 03:05 Labs: Short CBC 09/25/16 09/25/16 Range/Units 03:05 09:39 WBC 8.7 (4.3-11.1) K/mcL Hgb 10.9 L 10.5 L (11.5-15.4) g/dL Hct 33.5 L 31.3 L (35.3-44.9) % Plt Count 265 (140-400) K/mcL Neutrophils # 6.4 (1.6-8.9) K/mcL BMP 09/25/16 03:05 Sodium 143 Potassium 2.8 L Chloride 112 H Carbon Dioxide 23 BUN 14 Creatinine 0.83 Glucose 120 H Calcium 7.2 L - ABG Interpretation ABG results: ABG ABG pH 7.43 pH Units (7.32-7.45) 09/22/16 14:32 ABG pCO2 32 mmHg (35-45) L 09/22/16 14:32 ABG pO2 146 mmHg (85-104) H 09/22/16 14:32 ABG O2 Saturation 99 % (95-98) H 09/22/16 14:32 PT/INR, D-dimer PT 15.1 Seconds (9.4-12.1) H 09/18/16 17:59 - Attending Attestation I examined this patient and my medical decision-making was reviewed with the Resident Physician on 09/25/16. I agree with the documented findings, disposition and treatment plan as described except to the extent set forth below. Ms. Reis is currently admitted for acute UGI bleed due to acute gastric ulcer and anemia. She is high risk due to the potential for recurrent bleeding. Ms. Reis is not eating much. She does not want anything from clear liquids. She denies pain. No nausea. No bleeding noted at this time and H/H is being followed. Exam Alert. Comfortable Heart reg No wheeze Abd soft No edema I/P 1. Acute gastric ulcer 2. UGI bleed 3. Anemia Further diagnoses and plan as above.
[2016-09-25 09:56] LABS: Hematocrit 31.3 % (35.3-44.9); Hemoglobin 10.5 g/dL (11.5-15.4)
[2016-09-25] MEDS: Potassium Chloride 40 MEQ, Lidocaine 1% 2 ML in D5% in Water 500 ML IVPB SCH ×2 (10:07→14:20)
[2016-09-25] MEDS: Levothyroxine Sodium 100 MCG VIAL IVP SCH (10:08)
[2016-09-25] MEDS: *HR* Metoprolol 5 MG/5 ML VIAL IVP SCH ×2 (10:09→20:51)
[2016-09-25] MEDS ORDERED: Fluconazole 200 MG/100 ML 200 MG/100 ML BAG IVPB ONE (11:30)
[2016-09-25 20:08] LABS: Hematocrit 33.3 % (35.3-44.9); Hemoglobin 11.1 g/dL (11.5-15.4)
[2016-09-25] MEDS ORDERED: Potassium Chloride 40 MEQ, Lidocaine 1% 2 ML in D5% in Water 500 ML IVPB ONE (20:58)
[2016-09-25] MEDS ORDERED: Magnesium Sulfate 2 GM in D5% in Water 100 ML IVPB ONE (20:58)
[2016-09-26] MEDS: Pantoprazole 40 MG in 0.9 % Sodium Chloride Mini Bag 100 ML IVC SCH ×3 (02:25→12:44)
[2016-09-26 05:06] LABS: Basophils % 0.1 %; Eosinophils # 0.3 K/mcL (0.0-0.6); Eosinophils % 2.9 %; Hemoglobin 10.6 g/dL (11.5-15.4); Immature Granulocytes % 0.7 % (0-4); Lymphocytes # 1.6 K/mcL (0.6-4.6); Lymphocytes % 18.6 %; Mean Corpuscular HGB Conc 34.2 g/dL (31.6-35.5); Mean Corpuscular Hemoglobin 27.3 pg (28.0-33.3); Mean Corpuscular Volume 79.9 fL (83.0-100.0); Mean Platelet Volume 10.9 fL (9.4-12.4); Monocytes # 0.7 K/mcL (0.0-1.3); Monocytes % 7.8 %; Neutrophils # 6.2 K/mcL (1.6-8.9); Platelet Count 210 K/mcL (140-400); Red Blood Count 3.88 M/mcL (3.82-4.97); Segmented Neutrophils % 69.9 %
[2016-09-26 05:19] LABS: BUN/Creatinine Ratio 11 (6-26); Blood Urea Nitrogen 8 mg/dL (7-20); Carbon Dioxide 23 mEq/L (19-29); Chloride 113 mEq/L (98-109); Glucose 138 mg/dL (70-99); Magnesium 1.5 mg/dL (1.6-2.6); Osmolality,Calculated 289 (280-300); Potassium 3.8 mEq/L (3.5-4.5); Sodium 139 mEq/L (136-145); eGFR For African Americans > 60 (> 60); eGFR For Non-African Americans > 60 (> 60)
[2016-09-26] MEDS: *HR* Metoprolol 5 MG/5 ML VIAL IVP SCH ×2 (07:42→19:56)
[2016-09-26] MEDS: Levothyroxine Sodium 100 MCG VIAL IVP SCH (07:44)
[2016-09-26] MEDS: Insulin LISPRO 300 UNITS/3 ML VIAL SQ SCH ×5 (07:59→20:42)
--- NOTE | 2016-09-26 08:55 | Internal Med Progress Note ---
<Popeye Frankel - Last Filed: 09/26/16 13:58> Date of Encounter: 09/26/16 Time of Encounter: 08:55 - Assessment and plan (1) Acute blood loss anemia Current Visit: Yes Status: Acute Assessment and plan: Her hemoglobin has been stable for the last few days, GI/surgery on board, not a surgical candidate per surgery, hx of bypass surgery, s/p EGD last week which showed large friable ulcer and clots seen, s/p 4 units of prbc, con't to closely monitor H/H and transfuse as needed, hemodynamically stable now. (2) Dementia Current Visit: Yes Status: Acute Assessment and plan: Worsening dementia, patient continued to be agitated, refusing to eat or take po medications, will start her on IM Zyprexa scheduled daily, will check CT scan of the head, check TSH in the morning, since patient is not eating, will start the IV hydration with D5, IV banana bag, patient's daughter was interested to talk to palliative team for goal of care for her advanced dementia and possibility of palliative/hospice care, con't to treat UTI and treat blood loss anemia. Qualifiers: Dementia type: vascular dementia Dementia behavioral disturbance: with behavioral disturbance Qualified Code(s): F01.51 - Vascular dementia with behavioral disturbance (3) Gastric ulcer Current Visit: Yes Status: Acute Assessment and plan: Con't PPI, GI/surgery on board, not a surgical candidate per surgery, hx of bypass surgery, s/p EGD last week which showed large friable ulcer and clots seen, s/p 4 units of prbc, con't to closely monitor H/H. Qualifiers: Gastric ulcer chronicity: acute Gastric ulcer complication status: with hemorrhage Qualified Code(s): K25.0 - Acute gastric ulcer with hemorrhage (4) UTI (urinary tract infection) Current Visit: Yes Status: Acute Assessment and plan: Con't ceftazidime IV which sensitive to all three of pseudomonas, klebsilella and e.coli based on urine culture 09/18/2016, yeast is likely contaminant, no current fever or leukocytosis. Qualifiers: Urinary tract infection type: site unspecified Hematuria presence: with hematuria Qualified Code(s): N39.0 - Urinary tract infection, site not specified (5) Hypomagnesemia Current Visit: Yes Status: Acute Assessment and plan: We will replace it through IV, and recheck in the morning. (6) DVT prophylaxis Current Visit: Yes Status: Acute Assessment and plan: IPC. - Subjective Interval history: Pt seen and examined, A and Ox1, again patient was agitated last night, trying to get out of bed, refused to take po med. - Constitutional Vitals: Temp Pulse Resp BP Pulse Ox 97.4 F L 78 16 149/76 97 09/26/16 06:32 09/26/16 06:32 09/26/16 06:32 09/26/16 06:32 09/26/16 06:32 General appearance: Present: A&O X 1, no acute distress. Absent: cooperative, answers questions appropriately - Respiratory Respiratory exam: Present: CTAB. Absent: rales, rhonchi, wheezes - Cardiovascular Cardiovascular exam: Present: RRR, +S1, +S2. Absent: clicks, gallop, rubs, systolic murmur - GI/Abdominal GI/Abdominal exam: Present: normal bowel sounds, soft. Absent: distended, firm , guarding, rigid, tenderness - Extremities Exam Extremities exam: Present: warm, radial pulses palpable and symetrical. Absent : tenderness - Neurological Exam Neurological exam: Present: altered. Absent: alert, oriented X3 Additional comments: Limited neuro exam due to baseline dementia Internal Medicine: Result - Labs CBC & Chem 7: 09/26/16 12:02 09/26/16 04:46 Labs: Short CBC 09/25/16 09/25/16 09/26/16 Range/Units 09:39 19:53 04:46 WBC 8.8 (4.3-11.1) K/mcL Hgb 10.5 L 11.1 L 10.6 L (11.5-15.4) g/dL Hct 31.3 L 33.3 L 31.0 L (35.3-44.9) % Plt Count 210 (140-400) K/mcL Neutrophils # 6.2 (1.6-8.9) K/mcL BMP 09/25/16 09/26/16 19:53 04:46 Sodium 139 Potassium 3.4 L 3.8 Chloride 113 H Carbon Dioxide 23 BUN 8 Creatinine 0.71 Glucose 138 H Calcium 7.0 L - ABG Interpretation ABG results: ABG ABG pH 7.43 pH Units (7.32-7.45) 09/22/16 14:32 ABG pCO2 32 mmHg (35-45) L 09/22/16 14:32 ABG pO2 146 mmHg (85-104) H 09/22/16 14:32 ABG O2 Saturation 99 % (95-98) H 09/22/16 14:32 PT/INR, D-dimer PT 15.1 Seconds (9.4-12.1) H 09/18/16 17:59 Consult Discharge Plan - Plan Referrals: Carlos Alberto Nguyễn MD [Primary Care Provider] - <Ga Delgado - Last Filed: 09/26/16 16:17> Date of Encounter: 09/26/16 - Assessment and plan (1) Gastric ulcer Current Visit: Yes Status: Acute Qualifiers: Gastric ulcer chronicity: acute Gastric ulcer complication status: with hemorrhage Qualified Code(s): K25.0 - Acute gastric ulcer with hemorrhage (2) GI bleeding Current Visit: Yes Status: Acute Qualifiers: GI bleed type/associated pathology: gastrointestinal hemorrhage with hematemesis Qualified Code(s): K92.0 - Hematemesis (3) Acute blood loss anemia Current Visit: Yes Status: Acute (4) UTI (urinary tract infection) Current Visit: Yes Status: Acute Qualifiers: Urinary tract infection type: acute cystitis Hematuria presence: with hematuria Qualified Code(s): N30.01 - Acute cystitis with hematuria (5) Dementia Current Visit: Yes Status: Acute Qualifiers: Dementia type: vascular dementia Dementia behavioral disturbance: with behavioral disturbance Qualified Code(s): F01.51 - Vascular dementia with behavioral disturbance (6) Artificial pacemaker Current Visit: Yes Status: Chronic (7) Acute metabolic encephalopathy Current Visit: Yes Status: Acute - Constitutional Vitals: Temp Pulse Resp BP Pulse Ox 97.4 F L 65 16 148/75 96 09/26/16 12:10 09/26/16 12:10 09/26/16 12:10 09/26/16 12:10 09/26/16 12:10 Internal Medicine: Result - Labs CBC & Chem 7: 09/26/16 12:02 09/26/16 04:46 Labs: Short CBC 09/25/16 09/26/16 09/26/16 Range/Units 19:53 04:46 12:02 WBC 8.8 (4.3-11.1) K/mcL Hgb 11.1 L 10.6 L 11.2 L (11.5-15.4) g/dL Hct 33.3 L 31.0 L 33.4 L (35.3-44.9) % Plt Count 210 (140-400) K/mcL Neutrophils # 6.2 (1.6-8.9) K/mcL BMP 09/25/16 09/26/16 19:53 04:46 Sodium 139 Potassium 3.4 L 3.8 Chloride 113 H Carbon Dioxide 23 BUN 8 Creatinine 0.71 Glucose 138 H Calcium 7.0 L - ABG Interpretation ABG results: ABG ABG pH 7.43 pH Units (7.32-7.45) 09/22/16 14:32 ABG pCO2 32 mmHg (35-45) L 09/22/16 14:32 ABG pO2 146 mmHg (85-104) H 09/22/16 14:32 ABG O2 Saturation 99 % (95-98) H 09/22/16 14:32 PT/INR, D-dimer PT 15.1 Seconds (9.4-12.1) H 09/18/16 17:59 - Impressions Impressions Head CT 09/26/16 15:00 IMPRESSION: No acute intracranial abnormality. D/ / Rere Scruggs MD / Rere Scruggs MD Interpreting Provider: Rere Scruggs MD - Attending Attestation I examined this patient and my medical decision-making was reviewed with the Resident Physician on 09/26/16. I agree with the documented findings, disposition and treatment plan as described except to the extent set forth below. Ms. Reis is currently admitted for acute UGI bleed due to gastric ulcer. She has now developed acute delirium and possible worsening of dementia. Ms. Reis was very agitated last evening. No specific complaints - no localizing signs. She will not eat. She will not take PO meds. Denies pain. No CP or SOB. Daughter is at bedside and feels that she would want to be comfortable. Exam Alert. Restless in bed No wheeze Heart reg No edema Further diagnoses and plan as above.
[2016-09-26] MEDS ORDERED: OLANZapine 10 MG VIAL IM PRN (11:55)
[2016-09-26] MEDS ORDERED: Magnesium Sulfate 2 GM in D5% in Water 100 ML IVPB ONE (11:56)
[2016-09-26 12:25] LABS: Hematocrit 33.4 % (35.3-44.9); Hemoglobin 11.2 g/dL (11.5-15.4)
[2016-09-26] MEDS ORDERED: OLANZapine 10 MG VIAL IM SCH (14:15)
--- NOTE | 2016-09-26 15:25 | Palliative - Consult Note ---
Date of Encounter: 09/26/16 Time of Encounter: 14:45 - Assessment and Plan (1) Imbalanced nutrition due to less than body requirements Current Visit: Yes Status: Acute Assessment and plan: Patient with history Eris-en Y gastric bypass and newly diagnosed large friable gastric ulcer. Patient has refused to eat and current weight 169.4 lbs. protein 4.0, Albumin 1.4. Suffered GI bleed this admit and now H/H stable after 4 units PRBCs. Patient has been NPO and now having diet advanced but refused to eat. Patient currently started on Zyprexa and Protonix. Will discuss with family goals of nutritional support. Monitor I&O. (2) Goals of care, counseling/discussion Current Visit: No Status: Acute Assessment and plan: Called Daughter Shirlene #[phone]. Joshua #[phone]. Meeting set for 11am on 09/27/16. Goal of meeting to discuss goals of care. Patient currently resident of [facility]. Case discussed with Ryan Michelle, Travel Registered Nurse [facility]. Talked on phone with Shirlene and she reports that she was caring for mother at home until she became to much to handle and she transitioned her to ECF. Ryan to call [facility] to determine ability to return if needed based on families needs. (3) Acute encephalopathy Current Visit: Yes Status: Acute Assessment and plan: Patient with UTI and pending CT head. Patient with confusion and need of having bedside sitter. (4) Physical deconditioning Current Visit: Yes Status: Chronic Palliative-CN HPI - Data of Consult Patient: new to practice Consult date: 09/26/16 Requesting Physician: Popeye Frankel Primary Care Provider: Carlos Alberto Nguyễn MD - Consult Narrative Palliative Care/Comfort Measures: Palliative care Reason for consult: Goals of Care History of present illness: Ms. Reis is a 76 year old female admitted for acute encephalopathy due to urinary tract infection. On hospital day 4 she developed hematemesis and melena per rectum. GI services were consulted and the she underwent an EGD which revealed a very large, friable gastrojejunal ulceration. General surgery recommended conservative treatment. The patient has refused to eat or drink. She is currently hemodynamically stable. Upon this consult the patient is alone in the room with a bedside sitter. The patient is sleeping and refuses to open her eyes but shakes her head yes and no. She denies any pain or discomfort. This palliative care consult is for goals of care discussion. CC: Ga Delgado, DO Past Med Surg Social Fam HX - Past Medical History Source: old records reviewed, obtained from family Medical history: arthritis, coronary artery disease, diabetes, hypertension Psychiatric history: no psych history - Past Surgical History Surgical History: angioplasty/stent, pacemaker/AICD, other (Eris-en-Y gastric bypass. She is also had exploratory laparotomy and lysis of adhesions with detorsion of volvulus. This is done at [facility] last year.) - Social History Smoking Status: Former smoker Smokeless Tobacco Status: No Alcohol use: none Drug use: none - Family History Father History Unknown: Yes Adopted: No Family Member Ethnicity: Non- Living Status: Hx Family Cardiac Disorders: Yes Hx Family Respiratory Disorders: No Hx Family Cancer: No Hx Family GI Disorders: No Hx Family Endocrine Disorder: Yes Hx Family Neuromuscular Disorders: No Hx Family Neurologic Disorders: No Hx Family HEENT Disorders: No Hx Family Autoimmune Disorders: No Medications and Allergies Ascorbate Calcium [Vitamin C] 500 mg PO BID 08/12/16 [History] Aspirin [Lo-Dose Aspirin EC] 81 mg PO DAILY 08/12/16 [History] Atorvastatin [Lipitor] 40 mg PO HS 08/12/16 [History] BuPROPion SR (12 HR) [Wellbutrin SR] 150 mg PO BID 08/12/16 [History] Calcium Carbonate [Calcium] 600 mg PO BID 08/12/16 [History] Cholecalciferol (Vitamin D3) [Vitamin D3] 2,000 unit PO DAILY 08/12/16 [History] Cilostazol 50 mg PO BID 08/12/16 [History] CloNIDine HCl [Kapvay] 0.1 mg PO BID 08/12/16 [History] DiphenhydraMINE [Benadryl] 25 mg PO BID PRN 08/12/16 [History] Docusate [Colace] 100 mg PO BID 08/12/16 [History] Escitalopram [Lexapro] 10 mg PO HS 08/12/16 [History] Estrogens, Conjugated [Premarin Cream] 1 appl VG [id number] 08/12/16 [History] Fexofenadine HCl [Allergy Relief] 180 mg PO DAILY 08/12/16 [History] Gabapentin [Neurontin] 300 mg PO TID 08/12/16 [History] Levothyroxine [Synthroid] 25 mcg PO DAILY 08/12/16 [History] Magnesium Hydroxide [Milk of Magnesia] 30 ml PO DAILY PRN 08/12/16 [History] Melatonin/Pyridoxine HCl (B6) [Melatonin 3 mg Tablet] 3 mg PO HS 08/12/16 [ History] Metoprolol [Lopressor] 25 mg PO BID 08/12/16 [History] Oxybutynin Chloride [Ditropan Xl] 10 mg PO DAILY 08/12/16 [History] Oxycodone HCl/Acetaminophen [Percocet 5-325 mg Tablet] 1 - 2 tab PO Q4H PRN [History] Pentoxifylline [TRENtal] 400 mg PO BID 08/12/16 [History] Polyethylene Glycol 3350 [Gavilax] 17 gm PO DAILY 08/12/16 [History] Polyvinyl Alcohol/Povidone/Pf [Refresh Classic Eye Drops] 1 drop OP DAILY [History] Ranitidine HCl [Acid Timber Trimmer] 75 mg PO BID 08/12/16 [History] Sennosides [Senna] 8.6 mg PO BID 08/12/16 [History] Zinc Acetate [Galzin] 50 mg PO DAILY 08/12/16 [History] amLODIPine [Norvasc] 10 mg PO DAILY 08/12/16 [History] traZODone [TraZODone] 50 mg PO HS 08/12/16 [History] Multivitamin,Therapeutic [Thera-Tabs] 1 each PO DAILY #30 tablet 08/14/16 [Rx] Potassium Chloride 20 meq PO DAILY 09/19/16 [History] Allergies Penicillins Allergy (Unknown, Verified 09/18/16 02:36) See Comments Unknown reaction- Listed on ECF med list- Sulfa (Sulfonamide Antibiotics) Allergy (Unknown, Verified 09/18/16 02:36) See Comments Unknown reaction- Listed on ECF med list- tetanus toxoid, adsorbed Allergy (Unknown, Verified 09/18/16 02:36) See Comments Unknown reaction- Listed on ECF med list- ROS unobtainable: due to mental status (patient refuses to answer questions. Hx. dementia) - Constitutional Constitutional ROS PAL: decreased appetite - EENT Eyes: requires corrective lenses - Cardiovascular Cardiovascular ROS: as per HPI - Gastrointestinal Gastrointestinal: as per HPI - Musculoskeletal Musculoskeletal ROS IM: muscle weakness - Integumentary ROS Integumentary: sores (Right toes, scab 3rd anf 4th toes) - Neurological Neurological ROS: weakness - Psychiatric Psychiatric general PM: behavioral changes Palliative Care-Exam - Constitutional Vitals: Temp Pulse Resp BP Pulse Ox 97.4 F L 65 16 148/75 96 09/26/16 12:10 09/26/16 12:10 09/26/16 12:10 09/26/16 12:10 09/26/16 12:10 General appearance: Present: no acute distress (refuses to answer questions but shakes head yes or no ) - Head Head Exam: Present: atraumatic, normal inspection, normocephalic - Eye Eye exam: Present: PERRL Pupils: Present: PERRL - ENT ENT exam: Present: mucous membranes moist - Respiratory Respiratory exam: Present: decreased breath sounds, CTAB - Expanded Respiratory Exam Location: decreased breath sounds: Left, Right, Lower - Cardiovascular Cardiovascular exam: Present: RRR, +S1, +S2 - Expanded Cardiovascular Exam Peripheral pulses: 1+: Femoral (L) PM, Femoral (R) PM, Posterior Tibialis (L), Posterior Tibialis (R), 2+: Carotid (L) PM, Carotid (R) PM, Radial (L), Radial ( R), Dorsalis Pedis (L) PM, Dorsalis Pedis (R) PM - GI/Abdominal Exam GI/Abdominal exam: Present: normal bowel sounds, soft - Rectal Rectal exam: Present: deferred - Catheter Type: Urethral (Stock) (clear yellow urine) - Neurological Exam Neurological exam: Present: altered (hx dementia) - Skin Skin exam: Present: pallor Internal Medicine - CN: Reslt - Labs CBC & Chem 7: 09/26/16 12:02 09/26/16 04:46 Labs: Short CBC 09/25/16 09/26/16 09/26/16 Range/Units 19:53 04:46 12:02 WBC 8.8 (4.3-11.1) K/mcL Hgb 11.1 L 10.6 L 11.2 L (11.5-15.4) g/dL Hct 33.3 L 31.0 L 33.4 L (35.3-44.9) % Plt Count 210 (140-400) K/mcL Neutrophils # 6.2 (1.6-8.9) K/mcL BMP 09/25/16 09/26/16 19:53 04:46 Sodium 139 Potassium 3.4 L 3.8 Chloride 113 H Carbon Dioxide 23 BUN 8 Creatinine 0.71 Glucose 138 H Calcium 7.0 L - ABG Interpretation ABG results: ABG ABG pH 7.43 pH Units (7.32-7.45) 09/22/16 14:32 ABG pCO2 32 mmHg (35-45) L 09/22/16 14:32 ABG pO2 146 mmHg (85-104) H 09/22/16 14:32 ABG O2 Saturation 99 % (95-98) H 09/22/16 14:32 PT/INR, D-dimer PT 15.1 Seconds (9.4-12.1) H 09/18/16 17:59 Consult Discharge Plan - Plan Referrals: Carlos Alberto Nguyễn MD [Primary Care Provider] - Palliative Quality Palliative Quality: Screen for Code Status: Yes, Screen for Goals of Care: Yes, Screen for Pain: Yes, If Pain Regimen Started, Initiate Bowel Regimen: Yes, Screen for Nausea/Vomitting: Yes Code Status: 09/18/16 11:02 FULL [Resuscitation Status: Active] [RES] Routine Comment: Resuscitation Status: Full Code
[2016-09-26] MEDS: D5% in 0.9% NACL 1,000 ML IVC SCH (17:04)
[2016-09-26] MEDS: Magnesium Oxide 400 MG TABLET PO SCH ×2 (17:07→20:41)
[2016-09-26] MEDS: Thiamine (B-1) 100 MG, Folic Acid 1 MG, MVI, adult with vitamin K 10 ML in 0.9 % Sodi... IVPB SCH (19:55)
[2016-09-27 04:57] LABS: Magnesium 1.9 mg/dL (1.6-2.6)
[2016-09-27 05:25] LABS: Thyroid Stimulating Hormone 3.403 mcIU/mL (0.350-4.840)
[2016-09-27 06:16] LABS: Basophils % 0.1 %; Eosinophils # 0.2 K/mcL (0.0-0.6); Eosinophils % 2.2 %; Hemoglobin 11.6 g/dL (11.5-15.4); Immature Granulocytes % 0.6 % (0-4); Lymphocytes # 1.8 K/mcL (0.6-4.6); Lymphocytes % 17.9 %; Mean Corpuscular HGB Conc 33.1 g/dL (31.6-35.5); Mean Corpuscular Hemoglobin 27.6 pg (28.0-33.3); Mean Corpuscular Volume 83.1 fL (83.0-100.0); Monocytes # 0.8 K/mcL (0.0-1.3); Monocytes % 8.2 %; Neutrophils # 7.1 K/mcL (1.6-8.9); Platelet Count 262 K/mcL (140-400); Red Blood Count 4.21 M/mcL (3.82-4.97); Red Cell Distribution Width 19.5 % (11.5-14.5)
[2016-09-27] MEDS: Pantoprazole 40 MG VIAL IVP SCH (08:07)
[2016-09-27] MEDS: Levothyroxine Sodium 100 MCG VIAL IVP SCH (08:07)
[2016-09-27] MEDS: Insulin LISPRO 300 UNITS/3 ML VIAL SQ SCH ×4 (08:11→20:13)
[2016-09-27] MEDS: *HR* Metoprolol 5 MG/5 ML VIAL IVP SCH ×2 (08:11→19:53)
[2016-09-27] MEDS: Magnesium Oxide 400 MG TABLET PO SCH ×2 (08:13→19:52)
--- NOTE | 2016-09-27 08:53 | Internal Med Progress Note ---
<Popeye Frankel - Last Filed: 09/27/16 10:21> Date of Encounter: 09/27/16 Time of Encounter: 08:53 - Assessment and plan (1) Acute blood loss anemia Current Visit: Yes Status: Acute Assessment and plan: Her hemoglobin has been stable for the last few days, GI/surgery on board, not a surgical candidate per surgery, hx of bypass surgery, s/p EGD last week which showed large friable ulcer and clots seen, s/p 4 units of prbc, con't to closely monitor H/H and transfuse as needed, hemodynamically stable now. (2) Dementia Current Visit: Yes Status: Acute Assessment and plan: Worsening dementia, patient is not agitated currently, but still refusing to eat or take po medications, yesterday we started her on IM Zyprexa scheduled daily, CT scan of the head did not show acute process, TSH level was normal, since patient is not eating, we started the IV hydration with D5, IV banana bag , palliative team has been consulted, they will have a family meeting today to discuss the goal of care. Qualifiers: Dementia type: vascular dementia Dementia behavioral disturbance: with behavioral disturbance Qualified Code(s): F01.51 - Vascular dementia with behavioral disturbance (3) Gastric ulcer Current Visit: Yes Status: Acute Assessment and plan: Con't IV PPI, GI/surgery on board, not a surgical candidate per surgery, hx of bypass surgery, s/p EGD last week which showed large friable ulcer and clots seen, s/p 4 units of prbc, con't to closely monitor H/H. Qualifiers: Gastric ulcer chronicity: acute Gastric ulcer complication status: with hemorrhage Qualified Code(s): K25.0 - Acute gastric ulcer with hemorrhage (4) UTI (urinary tract infection) Current Visit: Yes Status: Acute Assessment and plan: Con't ceftazidime IV which sensitive to all three of pseudomonas, klebsilella and e.coli based on urine culture 09/18/2016, yeast is likely contaminant, no current fever or leukocytosis. Qualifiers: Urinary tract infection type: acute cystitis Hematuria presence: with hematuria Qualified Code(s): N30.01 - Acute cystitis with hematuria (5) Hypomagnesemia Current Visit: Yes Status: Acute Assessment and plan: Replaced yesterday, the level has improved this morning. (6) DVT prophylaxis Current Visit: Yes Status: Acute Assessment and plan: IPC. - Subjective Interval history: Pt seen and examined, A and Ox1, patient was not agitated last night, but still continued to refuse by mouth medication and meals, patient is drowsy this morning. - Constitutional Vitals: Temp Pulse Resp BP Pulse Ox 97.5 F L 72 16 147/79 95 09/27/16 07:24 09/27/16 07:24 09/27/16 07:24 09/27/16 07:24 09/27/16 07:24 General appearance: Present: A&O X 1, no acute distress. Absent: cooperative, answers questions appropriately - Respiratory Respiratory exam: Present: CTAB. Absent: rales, rhonchi, wheezes - Cardiovascular Cardiovascular exam: Present: RRR, +S1, +S2. Absent: clicks, gallop, rubs, systolic murmur - GI/Abdominal GI/Abdominal exam: Present: normal bowel sounds, soft. Absent: distended, firm , guarding, rebound, rigid, tenderness - Extremities Exam Extremities exam: Present: warm, radial pulses palpable and symetrical. Absent : calf tenderness, tenderness - Neurological Exam Neurological exam: Present: altered. Absent: alert, oriented X3 Additional comments: Limited neuro exam due to baseline dementia Internal Medicine: Result - Labs CBC & Chem 7: 09/27/16 06:05 09/26/16 04:46 Labs: Short CBC 09/26/16 09/27/16 Range/Units 12:02 06:05 WBC 10.1 (4.3-11.1) K/mcL Hgb 11.2 L 11.6 (11.5-15.4) g/dL Hct 33.4 L 35.0 L (35.3-44.9) % Plt Count 262 (140-400) K/mcL Neutrophils # 7.1 (1.6-8.9) K/mcL - ABG Interpretation ABG results: ABG ABG pH 7.43 pH Units (7.32-7.45) 09/22/16 14:32 ABG pCO2 32 mmHg (35-45) L 09/22/16 14:32 ABG pO2 146 mmHg (85-104) H 09/22/16 14:32 ABG O2 Saturation 99 % (95-98) H 09/22/16 14:32 PT/INR, D-dimer PT 15.1 Seconds (9.4-12.1) H 09/18/16 17:59 - Impressions Impressions Head CT 09/26/16 15:00 IMPRESSION: No acute intracranial abnormality. D/ / Rere Scruggs MD / Rere Scruggs MD Interpreting Provider: Rere Scruggs MD Consult Discharge Plan - Plan Referrals: Carlos Alberto Nguyễn MD [Primary Care Provider] - <Ga Delgado - Last Filed: 09/27/16 13:53> Date of Encounter: 09/27/16 - Assessment and plan (1) Gastric ulcer Current Visit: Yes Status: Acute Qualifiers: Gastric ulcer chronicity: acute Gastric ulcer complication status: with hemorrhage Qualified Code(s): K25.0 - Acute gastric ulcer with hemorrhage (2) GI bleeding Current Visit: Yes Status: Acute Qualifiers: GI bleed type/associated pathology: gastrointestinal hemorrhage with hematemesis Qualified Code(s): K92.0 - Hematemesis (3) Acute blood loss anemia Current Visit: Yes Status: Acute (4) UTI (urinary tract infection) Current Visit: Yes Status: Acute Qualifiers: Urinary tract infection type: acute cystitis Hematuria presence: with hematuria Qualified Code(s): N30.01 - Acute cystitis with hematuria (5) Dementia Current Visit: Yes Status: Acute Qualifiers: Dementia type: vascular dementia Dementia behavioral disturbance: with behavioral disturbance Qualified Code(s): F01.51 - Vascular dementia with behavioral disturbance (6) Artificial pacemaker Current Visit: Yes Status: Chronic (7) Acute metabolic encephalopathy Current Visit: Yes Status: Acute - Constitutional Vitals: Temp Pulse Resp BP Pulse Ox 97.7 F 64 19 155/80 95 09/27/16 11:55 09/27/16 11:55 09/27/16 11:55 09/27/16 11:55 09/27/16 07:24 Internal Medicine: Result - Labs CBC & Chem 7: 09/27/16 06:05 09/26/16 04:46 Labs: Short CBC 09/27/16 Range/Units 06:05 WBC 10.1 (4.3-11.1) K/mcL Hgb 11.6 (11.5-15.4) g/dL Hct 35.0 L (35.3-44.9) % Plt Count 262 (140-400) K/mcL Neutrophils # 7.1 (1.6-8.9) K/mcL - ABG Interpretation ABG results: ABG ABG pH 7.43 pH Units (7.32-7.45) 09/22/16 14:32 ABG pCO2 32 mmHg (35-45) L 09/22/16 14:32 ABG pO2 146 mmHg (85-104) H 09/22/16 14:32 ABG O2 Saturation 99 % (95-98) H 09/22/16 14:32 PT/INR, D-dimer PT 15.1 Seconds (9.4-12.1) H 09/18/16 17:59 - Impressions Impressions Head CT 09/26/16 15:00 IMPRESSION: No acute intracranial abnormality. D/ / Rere Scruggs MD / Rere Scruggs MD Interpreting Provider: Rere Scruggs MD - Attending Attestation I examined this patient and my medical decision-making was reviewed with the Resident Physician on 09/27/16. I agree with the documented findings, disposition and treatment plan as described except to the extent set forth below. Ms. Reis is currently admitted for acute UGI bleed due to gastric ulcer. She is moderate to high risk due to potential for bleeding and GI issues. Ms. Reis continues to refuse meds and food/drink. She has been sleeping a lot ( ? Zyprexa). Palliative met with family today and she is now DNRCC and will be leaving with hospice this week. Exam Sleepy but arouses. Heart reg No wheeze I/P 1. UGI bleed 2. Gastric ulcer 3. Anemia Further diagnoses and plan as above. Transfer to palliative room if available.
--- NOTE | 2016-09-27 12:34 | Palliative Progress Note ---
Date of Encounter: 09/27/16 Time of Encounter: 12:30 - Assessment and plan (1) Imbalanced nutrition due to less than body requirements Current Visit: Yes Status: Acute Assessment and plan: Encourage nutrition as tolerated. Discussed shelter nutrition options if Ms. Reis continues to refuse oral intake. Family elected not to pursue artificial nutrition/hydration by means of feeding tube. Discussed risks/benefits/ alternate options. Plan to adjust course to reflect comfort measures. (2) Goals of care, counseling/discussion Current Visit: No Status: Acute Assessment and plan: Family discussion with spouse-Joshua, daughter-Shirlene, son-Kevin, sister-Angélica. Discussed diagnosis, treatment plan, plan of care. Reviewed code status and options. Family elected to change her code status to DNR-Comfort Care to better align with her previously known intent. Family continues to support comfort measures and states that Ms. Reis has been declining and "giving up" over the past 6 months. railroad emergency services manager present for the meeting. Family asks appropriate questions. Discussed case with Dr. Delgado. Will plan for hospice consult with [facility] as per family request. (3) UTI (urinary tract infection) Current Visit: Yes Status: Acute Assessment and plan: ATB per hospitalist. Qualifiers: Urinary tract infection type: acute cystitis Hematuria presence: with hematuria Qualified Code(s): N30.01 - Acute cystitis with hematuria (4) Acute metabolic encephalopathy Current Visit: Yes Status: Acute Assessment and plan: IM Zyprexa daily. - Time Spent With Patient Total time spent is greater than 50% in coordination of care (as documented) at patient's floor/unit and/or counseling patient: - Subjective Interval history: Ms. Reis is lying in bed with her eyes closed. She does not follow commands or verbalize needs. - Constitutional Vitals: Abnormal lab results Hct 35.0 % (35.3-44.9) L 09/27/16 06:05 MCH 27.6 pg (28.0-33.3) L 09/27/16 06:05 RDW 19.5 % (11.5-14.5) H 09/27/16 06:05 Nucleated RBCs/100 WBC 0.2 /100 WBC (0) H 09/24/16 03:25 PT 15.1 Seconds (9.4-12.1) H 09/18/16 17:59 ABG pCO2 32 mmHg (35-45) L 09/22/16 14:32 ABG pO2 146 mmHg (85-104) H 09/22/16 14:32 ABG O2 Saturation 99 % (95-98) H 09/22/16 14:32 ABG Base Excess -2.5 mEq/L (-2.0 to 3.0) L 09/22/16 14:32 Chloride 113 mEq/L (98-109) H 09/26/16 04:46 Glucose 138 mg/dL (70-99) H 09/26/16 04:46 POC Glucose 114 (58-89) H 09/26/16 20:32 Calcium 7.0 mg/dL (8.6-10.8) L 09/26/16 04:46 AST 35 Units/L (5-34) H 09/22/16 11:40 Troponin I 0.21 ng/mL (0-0.03) H* 09/18/16 17:59 Serum Total Protein 4.0 g/dL (6.0-8.3) L 09/22/16 11:40 Albumin 1.4 g/dL (3.5-5.0) L 09/22/16 11:40 Albumin/Globulin Ratio 0.5 (1.1-2.2) L 09/22/16 11:40 Urine Clarity Cloudy (Clear) A 09/18/16 03:20 Urine Ketones 40 mg/dL (Negative) H 09/18/16 03:20 Urine Blood Small (Negative) H 09/18/16 03:20 Urine Nitrite Positive (Negative) A 09/18/16 03:20 Ur Leukocyte Esterase Large (Negative) H 09/18/16 03:20 Urine Microscopic RBC 5-15 per hpf (0-3) H 09/18/16 03:20 Urine Microscopic WBC TNTC per hpf (0-3) H 09/18/16 03:20 Ur Squamous Epith Cells Many per lpf (None-Few) H 09/18/16 03:20 Urine Bacteria Many per hpf (None-Few) H 09/18/16 03:20 Hyaline Casts Moderate per lpf (None-Few) H 09/18/16 03:20 Urine Yeast Few per hpf (None Seen) H 09/18/16 03:20 Ur Culture Indicated? YES (NO) A 09/18/16 03:20 General appearance: Present: no acute distress. Absent: cooperative Exam: 76 year old female appearing chronically ill. - ENT ENT exam: Present: mucous membranes moist - Respiratory Respiratory exam: Present: decreased breath sounds (shallow). Absent: accessory muscle use, respiratory distress - Cardiovascular Cardiovascular exam: Present: RRR Additional comments: paced rhythm - GI/Abdominal GI/Abdominal exam: Present: normal bowel sounds. Absent: tenderness - Extremities Exam Additional comments: no edema noted, necrotic area noted to 2nd and 3rd toes of the right foot. Pulses +1 to bilateral lower extremities. bilateral lower extremities with ruberous appearance. - Neurological Exam Neurological exam: Absent: alert (does not participate in exam) - Psychiatric Psychiatric exam: Present: flat affect. Absent: agitated, anxious - Skin Additional comments: as above, necrotic areas to 2nd and 3rd toes of the right foot. Palliative Quality Palliative Quality: Screen for Code Status: Yes, Screen for Goals of Care: Yes, Screen for Pain: Yes, If Pain Regimen Started, Initiate Bowel Regimen: Yes, Screen for Nausea/Vomitting: Yes Code Status: 09/18/16 11:02 FULL [Resuscitation Status: Active] [RES] Routine Comment: Resuscitation Status: Full Code FULL [Resuscitation Status: Active] [RES] Routine Comment: Resuscitation Status: DNR-Comfort Care - Labs CBC & Chem 7: 09/27/16 06:05 09/26/16 04:46 Labs: Laboratory Results - last 24 hr 09/26/16 09/26/16 09/26/16 12:08 16:47 20:32 WBC RBC Hgb Hct MCV MCH MCHC RDW Plt Count MPV Immature Gran % Seg Neutrophils % Lymphocytes % Monocytes % Eosinophils % Basophils % Neutrophils # Lymphocytes # Monocytes # Eosinophils # Basophils # POC Glucose 98 H 78 114 H Magnesium TSH Specimen Rejected 09/27/16 09/27/16 09/27/16 04:37 04:37 06:05 WBC 10.1 RBC 4.21 Hgb 11.6 Hct 35.0 L MCV 83.1 MCH 27.6 L MCHC 33.1 RDW 19.5 H Plt Count 262 MPV 10.0 Immature Gran % 0.6 Seg Neutrophils % 71.0 Lymphocytes % 17.9 Monocytes % 8.2 Eosinophils % 2.2 Basophils % 0.1 Neutrophils # 7.1 Lymphocytes # 1.8 Monocytes # 0.8 Eosinophils # 0.2 Basophils # 0.0 POC Glucose Magnesium 1.9 TSH 3.403 Specimen Rejected Clotted - Impressions Impressions Head CT 09/26/16 15:00 IMPRESSION: No acute intracranial abnormality. D/ / Rere Scruggs MD / Rere Scruggs MD Interpreting Provider: Rere Scruggs MD - ABG Interpretation ABG results: ABG ABG pH 7.43 pH Units (7.32-7.45) 09/22/16 14:32 ABG pCO2 32 mmHg (35-45) L 09/22/16 14:32 ABG pO2 146 mmHg (85-104) H 09/22/16 14:32 ABG O2 Saturation 99 % (95-98) H 09/22/16 14:32 PT/INR, D-dimer PT 15.1 Seconds (9.4-12.1) H 09/18/16 17:59 Consult Discharge Plan - Plan Referrals: Carlos Alberto Nguyễn MD [Primary Care Provider] -
[2016-09-27] MEDS: D5% in 0.9% NACL 1,000 ML IVC SCH (16:32)
[2016-09-27] MEDS: Thiamine (B-1) 100 MG, Folic Acid 1 MG, MVI, adult with vitamin K 10 ML in 0.9 % Sodi... IVPB SCH (17:36)
[2016-09-27] MEDS ORDERED: *HR* Morphine 2 MG/ML SYRINGE IVP PRN (18:30)
[2016-09-28] MEDS ORDERED: OLANZapine 10 MG VIAL IM SCH (09:00)
[2016-09-28] MEDS: Magnesium Oxide 400 MG TABLET PO SCH ×2 (09:13→20:14)
[2016-09-28] MEDS: *HR* Metoprolol 5 MG/5 ML VIAL IVP SCH ×2 (09:15→20:14)
[2016-09-28] MEDS: Levothyroxine Sodium 100 MCG VIAL IVP SCH (09:17)
[2016-09-28] MEDS: Insulin LISPRO 300 UNITS/3 ML VIAL SQ SCH ×4 (09:19→20:14)
[2016-09-28] MEDS: Pantoprazole 40 MG VIAL IVP SCH (09:19)
--- NOTE | 2016-09-28 09:36 | Event Note ---
Date of Encounter: 09/28/16 Time of Encounter: 09:34 Hospice biomedical technician certification of terminal illness: Hospice benefit. Start: 09/28/2016 Hospice benefit. In: +90 days Palliative performance scale: 20-30% History: Patient with history of multiple GI surgeries problems with GI bleeding, who is unable to take further nourishment. Does not wish to be fed artificially. In addition the patient has a history of repeat GI bleeds for which there will be no further aggressive care and the patient also has acute metabolic encephalopathy. As the patient wishes no further care, clearly encephalopathic for metabolic reasons, he is not able to take any nourishment by mouth with no plans for artificial feeding I find thaT These findings support a life expectancy of 6 months or less. I attest that I have compose the above narrative based on my review of the patient's medical records, and or on my examination of the patient. Keyshawn Ramirez M.D. Associate senior medical billing specialist. [facility]
[2016-09-28] MEDS: D5% in 0.45% NACL 1,000 ML IVC SCH (14:25)
--- NOTE | 2016-09-28 14:28 | Palliative Progress Note ---
Date of Encounter: 09/28/16 Time of Encounter: 13:00 - Assessment and plan (1) Imbalanced nutrition due to less than body requirements Current Visit: Yes Status: Acute Assessment and plan: Encourage nutrition as tolerated. Discussed terminal gauger supervisor nutrition options if Ms. Reis continues to refuse oral intake. Family elected not to pursue artificial nutrition/hydration by means of feeding tube. Discussed risks/benefits/ alternate options. Plan to adjust course to reflect comfort measures. (2) Goals of care, counseling/discussion Current Visit: No Status: Acute Assessment and plan: Following family meeting yesterday, plan continues to be transition to [facility] tomorrow with [facility]. Referral made today. (3) UTI (urinary tract infection) Current Visit: Yes Status: Acute Assessment and plan: Completed ATB course Qualifiers: Urinary tract infection type: acute cystitis Hematuria presence: with hematuria Qualified Code(s): N30.01 - Acute cystitis with hematuria (4) Acute metabolic encephalopathy Current Visit: Yes Status: Acute Assessment and plan: IM Zyprexa daily was discontinued yesterday. Patient appears to be tolerating. - Time Spent With Patient Total time spent is greater than 50% in coordination of care (as documented) at patient's floor/unit and/or counseling patient: - Subjective Interval history: Ms. Reis is lying in bed with her eyes closed. She does not follow commands or verbalize needs. Family reports she was awake and talking this morning. Continues to have poor PO intake. - Constitutional Vitals: Abnormal lab results Hct 35.0 % (35.3-44.9) L 09/27/16 06:05 MCH 27.6 pg (28.0-33.3) L 09/27/16 06:05 RDW 19.5 % (11.5-14.5) H 09/27/16 06:05 Nucleated RBCs/100 WBC 0.2 /100 WBC (0) H 09/24/16 03:25 PT 15.1 Seconds (9.4-12.1) H 09/18/16 17:59 ABG pCO2 32 mmHg (35-45) L 09/22/16 14:32 ABG pO2 146 mmHg (85-104) H 09/22/16 14:32 ABG O2 Saturation 99 % (95-98) H 09/22/16 14:32 ABG Base Excess -2.5 mEq/L (-2.0 to 3.0) L 09/22/16 14:32 Chloride 113 mEq/L (98-109) H 09/26/16 04:46 Glucose 138 mg/dL (70-99) H 09/26/16 04:46 POC Glucose 116 (58-89) H 09/27/16 20:06 Calcium 7.0 mg/dL (8.6-10.8) L 09/26/16 04:46 AST 35 Units/L (5-34) H 09/22/16 11:40 Troponin I 0.21 ng/mL (0-0.03) H* 09/18/16 17:59 Serum Total Protein 4.0 g/dL (6.0-8.3) L 09/22/16 11:40 Albumin 1.4 g/dL (3.5-5.0) L 09/22/16 11:40 Albumin/Globulin Ratio 0.5 (1.1-2.2) L 09/22/16 11:40 Urine Clarity Cloudy (Clear) A 09/18/16 03:20 Urine Ketones 40 mg/dL (Negative) H 09/18/16 03:20 Urine Blood Small (Negative) H 09/18/16 03:20 Urine Nitrite Positive (Negative) A 09/18/16 03:20 Ur Leukocyte Esterase Large (Negative) H 09/18/16 03:20 Urine Microscopic RBC 5-15 per hpf (0-3) H 09/18/16 03:20 Urine Microscopic WBC TNTC per hpf (0-3) H 09/18/16 03:20 Ur Squamous Epith Cells Many per lpf (None-Few) H 09/18/16 03:20 Urine Bacteria Many per hpf (None-Few) H 09/18/16 03:20 Hyaline Casts Moderate per lpf (None-Few) H 09/18/16 03:20 Urine Yeast Few per hpf (None Seen) H 09/18/16 03:20 Ur Culture Indicated? YES (NO) A 09/18/16 03:20 General appearance: Present: cooperative, no acute distress - ENT ENT exam: Present: mucous membranes moist - Respiratory Respiratory exam: Present: decreased breath sounds. Absent: respiratory distress, tachypnea - Cardiovascular Cardiovascular exam: Present: RRR - GI/Abdominal GI/Abdominal exam: Present: normal bowel sounds. Absent: guarding, tenderness - Extremities Exam Extremities exam: Absent: pedal edema - Neurological Exam Neurological exam: Absent: alert (does not follow commands at this time) - Psychiatric Psychiatric exam: Absent: agitated, anxious - Skin Skin exam: Present: dry, warm Palliative Quality Palliative Quality: Screen for Code Status: Yes, Screen for Goals of Care: Yes, Screen for Pain: Yes, If Pain Regimen Started, Initiate Bowel Regimen: Yes, Screen for Nausea/Vomitting: Yes Code Status: 09/18/16 11:02 FULL [Resuscitation Status: Active] [RES] Routine Comment: Resuscitation Status: Full Code FULL [Resuscitation Status: Active] [RES] Routine Comment: Resuscitation Status: DNR-Comfort Care - Labs CBC & Chem 7: 09/27/16 06:05 09/26/16 04:46 Labs: Laboratory Results - last 24 hr 09/27/16 09/27/16 09/27/16 07:39 11:56 15:58 POC Glucose 141 H 144 H 98 H 09/27/16 20:06 POC Glucose 116 H - ABG Interpretation ABG results: ABG ABG pH 7.43 pH Units (7.32-7.45) 09/22/16 14:32 ABG pCO2 32 mmHg (35-45) L 09/22/16 14:32 ABG pO2 146 mmHg (85-104) H 09/22/16 14:32 ABG O2 Saturation 99 % (95-98) H 09/22/16 14:32 PT/INR, D-dimer PT 15.1 Seconds (9.4-12.1) H 09/18/16 17:59 Consult Discharge Plan - Plan Referrals: Carlos Alberto Nguyễn MD [Primary Care Provider] - (ECF)
[2016-09-28] MEDS ORDERED: *HR* LORazepam 2 MG/ML VIAL IVP PRN (15:25)
--- NOTE | 2016-09-28 16:53 | Internal Med Progress Note ---
Date of Encounter: 09/28/16 Time of Encounter: 15:45 - Assessment and plan (1) Gastric ulcer Current Visit: Yes Status: Acute Assessment and plan: Patient was noted to have acute blood loss anemia during this admission and received 4 units PRBC transfusion. Hemoglobin is currently stable. GI and surgery have been consulted, patient underwent EGD which showed significant gastric ulcer with dried blood and clots. She is not a surgical candidate and was recommended medical management. Continue IV PPI and Carafate. Supportive care. Qualifiers: Gastric ulcer chronicity: acute Gastric ulcer complication status: with hemorrhage Qualified Code(s): K25.0 - Acute gastric ulcer with hemorrhage (2) Failure to thrive in adult Current Visit: Yes Status: Chronic Assessment and plan: Patient has been refusing oral intake with significant weight loss at least over the last 4-6 months according to the family. Palliative care team is on board and after multiple family discussions, it has been decided that patient would benefit most from comfort care measures in line with her previous wishes. She is currently confused with poor memory and is unable to make her own decisions. Plan is for patient to be transferred back to long-term care facility under hospice care. (3) Diabetes mellitus Current Visit: Yes Status: Chronic Qualifiers: Diabetes mellitus type: type 2 Diabetes mellitus complication status: with unspecified complications Diabetes mellitus manager intermediate insulin use: without manager intermediate use Qualified Code(s): E11.8 - Type 2 diabetes mellitus with unspecified complications (4) Hypothyroidism Current Visit: Yes Status: Chronic Qualifiers: Hypothyroidism type: unspecified Qualified Code(s): E03.9 - Hypothyroidism , unspecified (5) Physical deconditioning Current Visit: Yes Status: Chronic (6) UTI (urinary tract infection) Current Visit: Yes Status: Acute Assessment and plan: Patient has been treated with 10 day course of cephalosporins for UTI. Urine culture shows multiple gram-negative rods all of which are sensitive to cephalosporins. Qualifiers: Urinary tract infection type: acute cystitis Hematuria presence: with hematuria Qualified Code(s): N30.01 - Acute cystitis with hematuria (7) CAD (coronary artery disease) Current Visit: Yes Status: Chronic Qualifiers: Coronary Disease-Associated Artery/Lesion type: [place] artery [place] vs. transplanted heart: [place] heart Associated angina: without angina Qualified Code(s): I25.10 - Atherosclerotic heart disease of [place] coronary artery without angina pectoris (8) GI bleeding Current Visit: Yes Status: Acute Qualifiers: GI bleed type/associated pathology: gastrointestinal hemorrhage with hematemesis Qualified Code(s): K92.0 - Hematemesis (9) Dementia Current Visit: Yes Status: Chronic Qualifiers: Dementia type: vascular dementia Dementia behavioral disturbance: with behavioral disturbance Qualified Code(s): F01.51 - Vascular dementia with behavioral disturbance - Subjective Interval history: Noted to be awake, answers her name but is unable to answer any further questions. Refuses food intake but unable to specify the reason. Reports no pain or discomfort. - Constitutional Vitals: Temp Pulse Resp BP Pulse Ox 98.4 F 90 13 137/66 96 09/28/16 11:26 09/28/16 11:26 09/28/16 11:26 09/28/16 11:09/28/16 11:26 General appearance: Present: A&O X 1. Absent: cooperative, answers questions appropriately - Respiratory Respiratory exam: Present: CTAB. Absent: accessory muscle use, rales, rhonchi, wheezes - Cardiovascular Cardiovascular exam: Present: RRR, +S1, +S2, systolic murmur. Absent: diastolic murmur, gallop, rubs - GI/Abdominal GI/Abdominal exam: Present: normal bowel sounds, soft, no peritoneal signs. Absent: distended, tenderness Internal Medicine: Result - Labs CBC & Chem 7: 09/27/16 06:05 09/26/16 04:46 - ABG Interpretation ABG results: ABG ABG pH 7.43 pH Units (7.32-7.45) 09/22/16 14:32 ABG pCO2 32 mmHg (35-45) L 09/22/16 14:32 ABG pO2 146 mmHg (85-104) H 09/22/16 14:32 ABG O2 Saturation 99 % (95-98) H 09/22/16 14:32 PT/INR, D-dimer PT 15.1 Seconds (9.4-12.1) H 09/18/16 17:59 Consult Discharge Plan - Plan Referrals: Carlos Alberto Nguyễn MD [Primary Care Provider] - (ECF)
[2016-09-28] MEDS ORDERED: *HR* LORazepam 2 MG/ML VIAL ONE (19:38)
[2016-09-28] MEDS: *HR* LORazepam 2 MG/ML VIAL IVP PRN (19:45)
[2016-09-28] MEDS ORDERED: *HR* LORazepam 2 MG/ML VIAL IVP SCH (20:00)
[2016-09-29] MEDS: *HR* LORazepam 2 MG/ML VIAL IVP PRN (02:28)
[2016-09-29] MEDS: D5% in 0.45% NACL 1,000 ML IVC SCH (02:30)
[2016-09-29 07:07] VITALS: BP 153/84
[2016-09-29] MEDS: Insulin LISPRO 300 UNITS/3 ML VIAL SQ SCH ×2 (07:42→12:07)
--- NOTE | 2016-09-29 08:55 | Palliative Progress Note ---
Date of Encounter: 09/29/16 Time of Encounter: 08:53 - Assessment and plan (1) Imbalanced nutrition due to less than body requirements Current Visit: Yes Status: Acute Assessment and plan: Encourage nutrition as tolerated. Discussed intermodal dispatcher nutrition options during family meeting earlier in the week. Ms. Reis continues to refuse oral intake. Family elected not to pursue artificial nutrition/hydration by means of feeding tube. Discussed risks/benefits/alternate options. Plan to adjust course to reflect comfort measures. (2) Goals of care, counseling/discussion Current Visit: No Status: Acute Assessment and plan: Following family meeting earlier this week, plan continues to be transition to [facility] today with [facility]. Referral made, Rx for comfort medications on the chart. (3) UTI (urinary tract infection) Current Visit: Yes Status: Acute Assessment and plan: Completed ATB course Qualifiers: Urinary tract infection type: acute cystitis Hematuria presence: with hematuria Qualified Code(s): N30.01 - Acute cystitis with hematuria (4) Acute metabolic encephalopathy Current Visit: Yes Status: Acute Assessment and plan: Ms. Reis continues to have periods of agitation. Lorazepam was started yesterday, and then increased throughout the night. Rx for home meds completed. - Time Spent With Patient Total time spent is greater than 50% in coordination of care (as documented) at patient's floor/unit and/or counseling patient: - Subjective Interval history: Ms. Reis is lying in bed with her eyes closed. She does shake her head "yes" and "no", but does not follow commands. She declines to eat breakfast. Agitation noted throughout the night requiring lorazepam. Plan for discharge to [facility] today with [facility]. - Constitutional Vitals: Abnormal lab results Hct 35.0 % (35.3-44.9) L 09/27/16 06:05 MCH 27.6 pg (28.0-33.3) L 09/27/16 06:05 RDW 19.5 % (11.5-14.5) H 09/27/16 06:05 Nucleated RBCs/100 WBC 0.2 /100 WBC (0) H 09/24/16 03:25 PT 15.1 Seconds (9.4-12.1) H 09/18/16 17:59 ABG pCO2 32 mmHg (35-45) L 09/22/16 14:32 ABG pO2 146 mmHg (85-104) H 09/22/16 14:32 ABG O2 Saturation 99 % (95-98) H 09/22/16 14:32 ABG Base Excess -2.5 mEq/L (-2.0 to 3.0) L 09/22/16 14:32 Chloride 113 mEq/L (98-109) H 09/26/16 04:46 Glucose 138 mg/dL (70-99) H 09/26/16 04:46 POC Glucose 169 (58-89) H 09/28/16 20:03 Calcium 7.0 mg/dL (8.6-10.8) L 09/26/16 04:46 AST 35 Units/L (5-34) H 09/22/16 11:40 Troponin I 0.21 ng/mL (0-0.03) H* 09/18/16 17:59 Serum Total Protein 4.0 g/dL (6.0-8.3) L 09/22/16 11:40 Albumin 1.4 g/dL (3.5-5.0) L 09/22/16 11:40 Albumin/Globulin Ratio 0.5 (1.1-2.2) L 09/22/16 11:40 Urine Clarity Cloudy (Clear) A 09/18/16 03:20 Urine Ketones 40 mg/dL (Negative) H 09/18/16 03:20 Urine Blood Small (Negative) H 09/18/16 03:20 Urine Nitrite Positive (Negative) A 09/18/16 03:20 Ur Leukocyte Esterase Large (Negative) H 09/18/16 03:20 Urine Microscopic RBC 5-15 per hpf (0-3) H 09/18/16 03:20 Urine Microscopic WBC TNTC per hpf (0-3) H 09/18/16 03:20 Ur Squamous Epith Cells Many per lpf (None-Few) H 09/18/16 03:20 Urine Bacteria Many per hpf (None-Few) H 09/18/16 03:20 Hyaline Casts Moderate per lpf (None-Few) H 09/18/16 03:20 Urine Yeast Few per hpf (None Seen) H 09/18/16 03:20 Ur Culture Indicated? YES (NO) A 09/18/16 03:20 Exam: 76 year old female, does not follow commands. - Eye Eye exam: Present: EOMI - Respiratory Respiratory exam: Present: decreased breath sounds (shallow). Absent: accessory muscle use, respiratory distress - GI/Abdominal GI/Abdominal exam: Present: soft. Absent: tenderness - Extremities Exam Extremities exam: Present: normal inspection - Neurological Exam Neurological exam: Present: alert (shakes head "yes" and "no", but does not follow commands. ) - Psychiatric Psychiatric exam: Absent: agitated, anxious Additional comments: withdrawn - Skin Additional comments: necrotic area noted to 2nd and 3rd toes of the right foot. Palliative Quality Palliative Quality: Screen for Code Status: Yes, Screen for Goals of Care: Yes, Screen for Pain: Yes, If Pain Regimen Started, Initiate Bowel Regimen: Yes, Screen for Nausea/Vomitting: Yes Code Status: 09/18/16 11:02 FULL [Resuscitation Status: Active] [RES] Routine Comment: Resuscitation Status: Full Code FULL [Resuscitation Status: Active] [RES] Routine Comment: Resuscitation Status: DNR-Comfort Care - Labs CBC & Chem 7: 09/27/16 06:05 09/26/16 04:46 Labs: Laboratory Results - last 24 hr 09/25/16 09/25/16 09/28/16 08:04 11:38 11:28 POC Glucose 84 112 H 89 09/28/16 09/28/16 15:17 20:03 POC Glucose 82 169 H - ABG Interpretation ABG results: ABG ABG pH 7.43 pH Units (7.32-7.45) 09/22/16 14:32 ABG pCO2 32 mmHg (35-45) L 09/22/16 14:32 ABG pO2 146 mmHg (85-104) H 09/22/16 14:32 ABG O2 Saturation 99 % (95-98) H 09/22/16 14:32 PT/INR, D-dimer PT 15.1 Seconds (9.4-12.1) H 09/18/16 17:59 Consult Discharge Plan - Plan Referrals: Carlos Alberto Nguyễn MD [Primary Care Provider] - (ECF) Prescriptions: LORazepam Oral Conc [Ativan Oral Conc] 2 mg PO Q6HR PRN #15 mls PRN Reason: anxiety/agitation Haloperidol Oral Conc [Haldol] 2 mg PO TID PRN #10 mls PRN Reason: Agitation Morphine Oral CONC [Roxanol] 0.25 ml PO Q2H PRN #30 ml PRN Reason: pain or dyspnea
[2016-09-29] MEDS: Levothyroxine Sodium 100 MCG VIAL IVP SCH (09:58)
[2016-09-29] MEDS: Pantoprazole 40 MG VIAL IVP SCH (09:58)
[2016-09-29] MEDS: *HR* Metoprolol 5 MG/5 ML VIAL IVP SCH (09:58)
[2016-09-29] MEDS: Magnesium Oxide 400 MG TABLET PO SCH (09:59)
--- NOTE | 2016-09-29 13:21 | Discharge Summary ---
Date of Encounter: 09/29/16 Time of Encounter: 13:12 - Discharge Diagnosis (1) Gastric ulcer Priority: Primary Status: Acute Qualifiers: Gastric ulcer chronicity: acute Gastric ulcer complication status: with hemorrhage Qualified Code(s): K25.0 - Acute gastric ulcer with hemorrhage (2) Failure to thrive in adult Priority: Primary Status: Chronic (3) Diabetes mellitus Priority: Secondary Status: Chronic Qualifiers: Diabetes mellitus type: type 2 Diabetes mellitus complication status: with unspecified complications Diabetes mellitus care home insulin use: without terminal operations manager use Qualified Code(s): E11.8 - Type 2 diabetes mellitus with unspecified complications (4) Hypothyroidism Priority: Secondary Status: Chronic Qualifiers: Hypothyroidism type: unspecified Qualified Code(s): E03.9 - Hypothyroidism , unspecified (5) Physical deconditioning Priority: Secondary Status: Chronic (6) UTI (urinary tract infection) Priority: Primary Status: Acute Qualifiers: Urinary tract infection type: acute cystitis Hematuria presence: with hematuria Qualified Code(s): N30.01 - Acute cystitis with hematuria (7) CAD (coronary artery disease) Priority: Secondary Status: Chronic Qualifiers: Coronary Disease-Associated Artery/Lesion type: [place] artery [place] vs. transplanted heart: [place] heart Associated angina: without angina Qualified Code(s): I25.10 - Atherosclerotic heart disease of [place] coronary artery without angina pectoris (8) GI bleeding Priority: Primary Status: Acute Qualifiers: GI bleed type/associated pathology: gastrointestinal hemorrhage with hematemesis Qualified Code(s): K92.0 - Hematemesis (9) Dementia Priority: Secondary Status: Chronic Qualifiers: Dementia type: vascular dementia Dementia behavioral disturbance: with behavioral disturbance Qualified Code(s): F01.51 - Vascular dementia with behavioral disturbance - Discharge Medications Prescriptions: LORazepam Oral Conc [Ativan Oral Conc] 2 mg PO Q6HR PRN #15 mls PRN Reason: anxiety/agitation Haloperidol Oral Conc [Haldol] 2 mg PO TID PRN #10 mls PRN Reason: Agitation Morphine Oral CONC [Roxanol] 0.25 ml PO Q2H PRN #30 ml PRN Reason: pain or dyspnea Home Medications: Ascorbate Calcium [Vitamin C] 500 mg PO BID 08/12/16 [History] Aspirin [Lo-Dose Aspirin EC] 81 mg PO DAILY 08/12/16 [History] Atorvastatin [Lipitor] 40 mg PO HS 04/29/17 [History] BuPROPion SR (12 HR) [Wellbutrin SR] 150 mg PO BID 08/12/16 [History] Calcium Carbonate [Calcium] 600 mg PO BID 08/12/16 [History] Cholecalciferol (Vitamin D3) [Vitamin D3] 2,000 unit PO DAILY 08/12/16 [History] Cilostazol 50 mg PO BID 08/12/16 [History] CloNIDine HCl [Kapvay] 0.1 mg PO BID 08/12/16 [History] DiphenhydraMINE [Benadryl] 25 mg PO BID PRN 08/12/16 [History] Docusate [Colace] 100 mg PO BID 08/12/16 [History] Escitalopram [Lexapro] 10 mg PO HS 08/12/16 [History] Estrogens, Conjugated [Premarin Cream] 1 appl VG MOWEFR 08/12/16 [History] Fexofenadine HCl [Allergy Relief] 180 mg PO DAILY 08/12/16 [History] Gabapentin [Neurontin] 300 mg PO TID 08/12/16 [History] Levothyroxine [Synthroid] 25 mcg PO DAILY 08/12/16 [History] Magnesium Hydroxide [Milk of Magnesia] 30 ml PO DAILY PRN 08/12/16 [History] Melatonin/Pyridoxine HCl (B6) [Melatonin 3 mg Tablet] 3 mg PO HS 08/12/16 [ History] Metoprolol [Lopressor] 25 mg PO BID 08/12/16 [History] Oxybutynin Chloride [Ditropan Xl] 10 mg PO DAILY 08/12/16 [History] Oxycodone HCl/Acetaminophen [Percocet 5-325 mg Tablet] 1 - 2 tab PO Q4H PRN [History] Pentoxifylline [TRENtal] 400 mg PO BID 08/12/16 [History] Polyethylene Glycol 3350 [Gavilax] 17 gm PO DAILY 08/12/16 [History] Polyvinyl Alcohol/Povidone/Pf [Refresh Classic Eye Drops] 1 drop OP DAILY [History] Ranitidine HCl [Acid Rickshaw Driver] 75 mg PO BID 08/12/16 [History] Sennosides [Senna] 8.6 mg PO BID 08/12/16 [History] Zinc Acetate [Galzin] 50 mg PO DAILY 08/12/16 [History] amLODIPine [Norvasc] 10 mg PO DAILY 08/12/16 [History] traZODone [TraZODone] 50 mg PO HS 08/12/16 [History] Multivitamin,Therapeutic [Thera-Tabs] 1 each PO DAILY #30 tablet 08/14/16 [Rx] Potassium Chloride 20 meq PO DAILY 09/19/16 [History] Haloperidol Oral Conc [Haldol] 2 mg PO TID PRN #10 mls 09/29/16 [Rx] LORazepam Oral Conc [Ativan Oral Conc] 2 mg PO Q6HR PRN #15 mls 09/29/16 [Rx] Morphine Oral CONC [Roxanol] 0.25 ml PO Q2H PRN #30 ml 09/29/16 [Rx] Allergies/Adverse Reactions: Allergies Penicillins Allergy (Unknown, Verified 09/18/16 02:36) See Comments Unknown reaction- Listed on ECF med list- Sulfa (Sulfonamide Antibiotics) Allergy (Unknown, Verified 09/18/16 02:36) See Comments Unknown reaction- Listed on ECF med list- tetanus toxoid, adsorbed Allergy (Unknown, Verified 09/18/16 02:36) See Comments Unknown reaction- Listed on ECF med list- Procedures/tests Complete & Pending: Procedures Performed prior 72 hours Category Date Time Status CT head/brain wo con [CT] Routine Cat Scan 09/26/16 15:00 Completed Date of admission: 09/18/16 10:32 Primary care physician: Carlos Alberto Nguyễn MD Consults: 09/18/16 12:01 Consult to Case Management Assistant [CONS] Routine Reason for SW Consult: [place] 09/21/16 10:31 Consult to Gastroenterology [CONS] Routine Consulting Provider: Gastroenternegrita Hamilton Reason for Consult: HEMATEMESIS Call Completed: No 09/21/16 14:38 Consult to Invasive Line Access Team [CONS] Routine Reason for Consult: limitied access, declining, need additional access. Line Type: EPIV 09/21/16 18:07 Consult to Surgery [CONS] Stat Consulting Provider: Benjamin De La Rosa Reason for Consult: GI BLEED, ULCER Call Completed: Yes 09/22/16 10:52 Consult to Invasive Line Access Team [CONS] Routine Reason for Consult: poor access Line Type: EPIV 09/26/16 14:21 Consult to Nutrition [CONS] Routine Comment: Consulting Provider: NUTRITION Reason for Dietary Consult: PO Supplementation 09/26/16 14:22 Consult to Palliative Care [CONS] Routine Comment: Consulting Provider: Palliative Care Joy Reason for Consult: advanced dementia, goal of care, refusing to eat or take PO meds, daughter would like to talk to palliative team Call Completed: No Discharging clinician: Liya Box Anticipated date of discharge: 09/29/16 - Patient Status Disposition: Hospice - Medical Facility Condition: Fair Functional capacity at discharge: bed bound Overall status at discharge: patient is not back to baseline - Discharge Instructions Follow Up With: Carlos Alberto Nguyễn MD [Primary Care Provider] - (ECF) - Diet and Activity Diet: other (as tolerated) Hospital course: Ms. Reis is a 76 year old female correction resident with significant dementia who was admitted with lethargy and decreased responsiveness. Emergency room workup revealed UTI and she was started on empiric IV antibiotics. She was also noted to have a mild troponin leak and was initially started on anticoagulation. Cardiology was consulted and troponin leak was thought to be likely due to demand ischemia. Patient's urine culture eventually grew 3 different gram-negative rods, all of which were susceptible to cephalosporins and patient completed a ten-day course of IV antibiotics. While in the hospital, she developed hematemesis and lower GI bleed along with acute blood loss anemia. Hemoglobin improved with 4 units PRBC transfusion. GI was consulted and patient underwent EGD, which showed large gastrojejunal friable ulcer with blood clots and patient was recommended to be kept nothing by mouth with IV PPI drip and to avoid nasogastric tube insertion due to risk of perforation. Surgery was consulted and agreed with conservative medical management as patient is not a surgical candidate. Patient continued to deteriorate with poor oral intake and family notes that patient has been declining over the last 4-6 months, refusing oral intake, more depressed and bedbound. Palliative care team has been consulted and after multiple family discussions, patient's CODE STATUS is changed to DNR comfort care and patient is currently being discharged back to [facility] under hospice/palliative care. Hospice medications scripts have been provided by palliative care team. - Time Spent with Patient Total time spent providing and/or coordinating discharge services: Greater than 30 minutes (45 min) - Constitutional Vitals: Temp Pulse Resp BP Pulse Ox 97.5 F L 65 16 153/84 97 09/29/16 07:06 09/29/16 07:06 09/29/16 07:06 09/29/16 07:06 09/29/16 07:06 General appearance: Present: A&O X 1 (sleeping in bed). Absent: cooperative, answers questions appropriately
--- NOTE | 2016-09-29 13:28 | Physician Discharge Referral ---
ExtendedCare Referral Info Transfer To: [facility] Provider in Charge: Liya Box Provider in Charge after Transfer: PCP Institutional Level of Care: Skilled - Diagnosis (1) Gastric ulcer Priority: Primary Status: Acute (2) Failure to thrive in adult Priority: Primary Status: Chronic (3) Diabetes mellitus Priority: Secondary Status: Chronic (4) Hypothyroidism Priority: Secondary Status: Chronic (5) Physical deconditioning Priority: Secondary Status: Chronic (6) UTI (urinary tract infection) Priority: Primary Status: Acute (7) CAD (coronary artery disease) Priority: Secondary Status: Chronic (8) GI bleeding Priority: Primary Status: Acute (9) Dementia Priority: Secondary Status: Chronic Prognosis: Poor Aware of Diagnosis: Family Aware of Prognosis: Family - Transfer Medications Prescriptions: LORazepam Oral Conc [Ativan Oral Conc] 2 mg PO Q6HR PRN #15 mls PRN Reason: anxiety/agitation Haloperidol Oral Conc [Haldol] 2 mg PO TID PRN #10 mls PRN Reason: Agitation Morphine Oral CONC [Roxanol] 0.25 ml PO Q2H PRN #30 ml PRN Reason: pain or dyspnea Home Medications: Ascorbate Calcium [Vitamin C] 500 mg PO BID 08/12/16 [History] Aspirin [Lo-Dose Aspirin EC] 81 mg PO DAILY 08/12/16 [History] Atorvastatin [Lipitor] 40 mg PO HS 08/12/16 [History] BuPROPion SR (12 HR) [Wellbutrin SR] 150 mg PO BID 08/12/16 [History] Calcium Carbonate [Calcium] 600 mg PO BID 08/12/16 [History] Cholecalciferol (Vitamin D3) [Vitamin D3] 2,000 unit PO DAILY 08/12/16 [History] Cilostazol 50 mg PO BID 08/12/16 [History] CloNIDine HCl [Kapvay] 0.1 mg PO BID 08/12/16 [History] DiphenhydraMINE [Benadryl] 25 mg PO BID PRN 08/12/16 [History] Docusate [Colace] 100 mg PO BID 08/12/16 [History] Escitalopram [Lexapro] 10 mg PO HS 08/12/16 [History] Estrogens, Conjugated [Premarin Cream] 1 appl VG MOWEFR 08/12/16 [History] Fexofenadine HCl [Allergy Relief] 180 mg PO DAILY 08/12/16 [History] Gabapentin [Neurontin] 300 mg PO TID 08/12/16 [History] Levothyroxine [Synthroid] 25 mcg PO DAILY 08/12/16 [History] Magnesium Hydroxide [Milk of Magnesia] 30 ml PO DAILY PRN 08/12/16 [History] Melatonin/Pyridoxine HCl (B6) [Melatonin 3 mg Tablet] 3 mg PO HS 08/12/16 [ History] Metoprolol [Lopressor] 25 mg PO BID 08/12/16 [History] Oxybutynin Chloride [Ditropan Xl] 10 mg PO DAILY 08/12/16 [History] Oxycodone HCl/Acetaminophen [Percocet 5-325 mg Tablet] 1 - 2 tab PO Q4H PRN [History] Pentoxifylline [TRENtal] 400 mg PO BID 08/12/16 [History] Polyethylene Glycol 3350 [Gavilax] 17 gm PO DAILY 08/12/16 [History] Polyvinyl Alcohol/Povidone/Pf [Refresh Classic Eye Drops] 1 drop OP DAILY [History] Ranitidine HCl [Acid Samples And Repairs Preparer] 75 mg PO BID 08/12/16 [History] Sennosides [Senna] 8.6 mg PO BID 08/12/16 [History] Zinc Acetate [Galzin] 50 mg PO DAILY 08/12/16 [History] amLODIPine [Norvasc] 10 mg PO DAILY 08/12/16 [History] traZODone [TraZODone] 50 mg PO HS 08/12/16 [History] Multivitamin,Therapeutic [Thera-Tabs] 1 each PO DAILY #30 tablet 08/14/16 [Rx] Potassium Chloride 20 meq PO DAILY 09/19/16 [History] Haloperidol Oral Conc [Haldol] 2 mg PO TID PRN #10 mls 09/29/16 [Rx] LORazepam Oral Conc [Ativan Oral Conc] 2 mg PO Q6HR PRN #15 mls 09/29/16 [Rx] Morphine Oral CONC [Roxanol] 0.25 ml PO Q2H PRN #30 ml 09/29/16 [Rx] Allergies/Adverse Reactions: Allergies Penicillins Allergy (Unknown, Verified 09/18/16 02:36) See Comments Unknown reaction- Listed on ECF med list- Sulfa (Sulfonamide Antibiotics) Allergy (Unknown, Verified 09/18/16 02:36) See Comments Unknown reaction- Listed on ECF med list- tetanus toxoid, adsorbed Allergy (Unknown, Verified 09/18/16 02:36) See Comments Unknown reaction- Listed on ECF med list- - Respiratory Orders Smoking Cessation: Smoking cessation has been advised. For more information, call the [place] Tobacco Quit Line at 7-350-STIW-NOW. - Advance Directives Power of Brake Shoe Rebuilder: Yes Code Status: DNR-Comfort Care - Mobility Orders Bedrest - Rehabiliation Orders Rehab Potential: Poor - Diet Orders Regular (as tolerated) CERTIFICATION: I certify that the transfer of the above named patient to an Extended Care Facility is necessary for the continuing treatment of the diagnosis listed. The above information is true and accurate reflection of patient's current condition. Confidential - Redisclosure prohibited without a patient's written consent.
== END 2016-09-29 16:32 | disposition hospice, inpatient (51) | DRG 689 ==
LOC: EMEROO 02:13 → 3BNU 02:13 → SUATTDRO 10:32 → 2NNU 09-21 16:21 → ICNU 09-21 18:42 → 2NENU 09-24 16:38 → 2ANU 09-27 17:52
PROVIDERS: ADMIT Hospitalist; ATTEND Internal Medicine